=== PATIENT | female | born 1970 | race Two or more races ===

== ENCOUNTER 2024-06-11 22:44 | Emergency (ER) | payer MEDICAID, SELFPAY ==
[2024-06-11 22:45] VITALS: BMI 29.1
[2024-06-11 22:59] VITALS: BP 119/78; PULSE 87; RESP 18; TEMP 36.9; O2SAT 98
--- NOTE | 2024-06-11 23:09 | EDNOTE_ITS ---
ED Wound/Laceration-RME/HPI General Chief Complaint: Recheck/Abnormal Lab/Rx Stated Complaint: LAC WITH SUTURE IS BLEEDING Time Seen by Provider: 06/11/24 23:05 Arrival date/time: 06/11/24 22:44 53F with history of HTN, psych and seizures presents to ED with previous head lac bleeding again. Patient had received curtis during previous visit, but has been picking at it according to caregiver. Limitations: no limitations Related Data Home Medications ?Medication ?Instructions ?Recorded ?Confirmed benztropine 1 mg tablet 1 mg PO BID 08/09/19 05/10/22 docusate sodium 250 mg capsule 250 mg PO BID 08/09/19 05/10/22 sertraline 100 mg tablet 100 mg PO QPM 08/09/19 05/10/22 quetiapine 400 mg tablet 800 mg PO QPM 10/30/19 05/10/22 omeprazole 20 mg capsule,delayed 20 mg PO QDAY 10/18/21 05/10/22 release levetiracetam 500 mg 500 mg PO BID 05/10/22 05/10/22 tablet,extended release 24 hr loratadine 10 mg tablet 10 mg PO QDAY 05/10/22 05/10/22 Previous Rx's ?Medication ?Instructions ?Recorded cephalexin 500 mg capsule 500 mg PO BID 5 days #10 caps 06/11/24 Allergies Allergy/AdvReac Type Severity Reaction Status Date / Time lithium Allergy Severe Hallucinati Verified 06/11/24 22:47 ng Review of Systems Review of Systems Systems Reviewed: All systems reviewed, normal except as documented Constitutional Constitutional: Reports system reviewed and no additional complaints, except as documented, Denies fever(s) and Denies headache(s) ENT Ears, Nose, Mouth, and Throat: Denies disequilibrium and Denies headache(s) Cardiovascular Cardiovascular: Reports system reviewed and no additional complaints, except as documented, Denies chest pain and Denies dyspnea Respiratory Respiratory: Reports system reviewed and no additional complaints, except as documented, Denies cough and Denies dyspnea Gastrointestinal Gastrointestinal: Reports system reviewed and no additional complaints, except as documented, Denies abdominal pain, Denies nausea and Denies vomiting Neurologic Neurologic: Reports system reviewed and no additional complaints, except as documented, Denies confusion, Denies disequilibrium and Denies headache(s) Psychiatric Psychiatric: Denies confusion Past Medical History Past Medical History NEUROLOGIC: Positive Neurological Disorders and Seizures CARDIAC: Positive Cardiac Disorders and Hypertension; Negative Congestive Heart Failure RESPIRATORY: Negative Chronic Obstructive Pulmonary Disease (COPD) GASTROINTESTINAL: Negative Gastrointestinal Disorders GENITOURINARY: Negative Genitourinary Disorders or Renal Disease MUSCULOSKELETAL: Negative Musculoskeletal Disorders ENDOCRINE: Negative Endocrine Disorders, Diabetes Mellitus Type 1 or Diabetes Mellitus Type 2 HEMATOLOGIC: Negative Blood Disorders OTHER HISTORY: Negative Blood Transfusions, Blood Transfusion Reaction or Anesthesia Reactions Social History SMOKING STATUS: Never smoker SUBSTANCE USE: does not use ED Exam General Limitations: Present no limitations General appearance: Present alert and in no apparent distress Expanded Head Exam Head exam physical: Present laceration (front scalp) Eye Eye exam: Present normal appearance, PERRL and EOMI ENT ENT exam: Present normal exam, normal oropharynx and mucous membranes moist Neck Neck exam: Present normal inspection, full ROM and trachea midline Chest Chest inspection: Present normal inspection and symmetric chest wall rise Respiratory Respiratory exam: Present normal lung sounds bilaterally Cardiovascular Cardiovascular exam: Present regular rate, normal rhythm and normal heart sounds Abdominal Exam Abdominal exam: Present soft and normal bowel sounds Extremities Exam Extremities exam: Present normal inspection and full ROM Back Exam Back exam: Present normal inspection and full ROM Neurological Exam Neurological exam: Present alert, oriented X3 and CN II-XII intact Psychiatric Psychiatric exam: Present normal affect and normal mood Skin Skin exam: Present warm, dry, intact and normal color Course Quality Measures none Orders Category Date Time Status Set Up Suture Tray STAT Care 06/11/24 23:33 Active Suture / Staple Removal NOW Care 06/11/24 23:05 Active Wound Care NOW Care 06/11/24 23:05 Active Vital Signs Vital signs: Vital Signs Temperature 98.4 F 06/11/24 22:59 Pulse Rate 87 06/11/24 22:59 Respiratory Rate 18 06/11/24 22:59 Blood Pressure 119/78 06/11/24 22:59 Pulse Oximetry (%) 98 06/11/24 22:59 Oxygen Delivery Method Room Air 06/11/24 22:59 O2 at 98% on RA and WNLs Wound / Laceration MDM Narrative MDM Narrative:: 53F with history of HTN, psych and seizures presents to ED with previous head lac bleeding again. Patient had received curtis during previous visit, but has been picking at it according to caregiver. Physical exam reveals 2 partially removed curtis on frontal scalp lac that is partially healed. One staple still in place. Normal pupil response and EOM. No skin redness, swelling or tenderness. Patient is afebrile, calm, and alert. Wound cleaned and curtis removed. Laceration reinforced with 3 stitches. Given executive assistant to general counsel to have them removed in about 10-14 days. Will given short course of ABX due to duration wound has been opened. Patient data External records reviewed:: [facility] previous records Clinical information provided by:: patient Social determinants that could affect healthcare access:: none Patient has the following chronic illnesses:: HTN, psych and seizures How is presenting disease/condition affected by chronic disease/condition?: exacerbated by Evaluation data The following diagnostics were reviewed and interpreted by me:: other (specify) (none) Lab and/or radiology exams considered but not ordered:: not ordered Interpretation Summary: n/a Medications / Prescriptions Medications or Prescriptions considered but not ordered:: not ordered Medication administrations:: n/a Consultations Consultation(s) initiated? (list below): No Diagnosis Wound Differential Diagnosis: laceration, abrasion, avulsion of skin and other (wound check) Most likely diagnosis given after review of the tests above:: laceration Admission Indicated Admission indicated?: not indicated Admission Request Was there a request for admission?: No Disposition Plan Disposition Plan: Discharge Discharge Attestation Discharge Attestation: The patient and all family members were given an opportunity to ask questions and understood the discharge instructions. Discharge instructions specifically effects, indications for sooner follow up or return to the emergency department, and the expected course of current diagnosis. Patient condition: Stable Discharge Plan Plan Patient Disposition: HOME (Self Care) Disposition Comment: Stable Prescriptions/Referrals Prescriptions/Med Rec: New cephalexin 500 mg capsule 500 mg PO BID 5 Days Qty: 10 0RF No Action quetiapine 400 mg Tablet 800 mg PO QPM sertraline 100 mg tablet 100 mg PO QPM benztropine 1 mg tablet 1 mg PO BID docusate sodium 250 mg Capsule 250 mg PO BID omeprazole 20 mg Capsule,Delayed Release(Dr/Ec) 20 mg PO QDAY loratadine 10 mg tablet 10 mg PO QDAY levetiracetam 500 mg tablet extended release 24 hr 500 mg PO BID Problem List Clinical Impression: Laceration Patient/Caregiver Discharge Instructions Additional Instructions: Please follow-up with PCP within 24-48 hours and return immediately if symptoms worsen. Have stitches removed in about 10-14 days. Print Language: Maltese Stand Alone Forms: Patient Portal Info Letter PA/BURLING AND JOINING SUPERVISOR Supervising Physician PA/BURLING AND JOINING SUPERVISOR Supervising Physician: Dr. Muñiz
== END 2024-06-11 23:52 | disposition home or self-care (01) ==
PROVIDERS: Emergency Provider Emergency Medicine; PCP Registered Nurse
DX: S01.01XD Laceration without foreign body of scalp, subsequent encounter (principal); X58.XXXD Exposure to other specified factors, subsequent encounter; I10 Essential (primary) hypertension
CPT/HCPCS: 12001; 99283

== ENCOUNTER 2024-06-17 16:33 | Emergency (ER) | payer MEDICAID, SELFPAY ==
[2024-06-17 16:44] VITALS: BP 115/74; PULSE 88; RESP 18; TEMP 37; O2SAT 95; BMI 27.1
--- NOTE | 2024-06-17 16:45 | XR_ITS ---
Examination: CT brain head without contrast. 2-D sagittal coronal reconstructions Date and time of exam:June 17, 2024 1940 hrs. Indications: Patient fell today with injury to the head, head pain CTDI: vol (mGy):44.9 DLP: (mGycm):818 Technique: Multiple CT axial sections of the brain have been obtained, 5 mm slice thickness. Contrast has not been administered. 2-D sagittal, coronal reconstructions have been obtained Low dose protocols were performed. One or more of the following dose reduction techniques were used; automated exposure control, adjustment of the mA and/or KV according to patient size, use of iterative reconstruction technique. Findings: No significant ventricular enlargement. Intra-axial or extra-axial hemorrhage density is not seen. No mass effect or midline shift Basal cisterns are not remarkable. Fourth ventricle is midline. Cranial vault intact. Impression: Negative for acute hemorrhage, mass effect or midline shift
--- NOTE | 2024-06-17 16:45 | XR_ITS ---
Examination: CT cervical spine without contrast 2-D sagittal reconstructions 2-D coronal reconstructions 3-D reconstructions. Exam date and time:June 15, 2024 1940 hrs. Indications: Patient fell today with injury to the neck, neck pain CTDI:vol (mGy) 7.53 DLP: (mGycm) 144 Technique: Multiple 2 mm axial sections of the cervical spine have been obtained. The coronal and sagittal reconstructions have been obtained. 3-D reconstructions have been obtained. Low dose protocols were performed. One or more of the following dose reduction techniques were used; automated exposure control, adjustment of the mA and/or KV according to patient size, use of iterative reconstruction technique. Findings: Axial sections demonstrate intact base of the skull. C1 exhibit satisfactory relationship to the odontoid. No acute cervical vertebral body fracture seen. Alignment posterior spinous processes satisfactory. Impression: No acute cervical fracture.
--- NOTE | 2024-06-17 16:45 | EDRME_ITS ---
Rapid Medical Screening Exam RME Arrival date/time: 06/17/24 16:33 53-year-old female developmentally delayed presents emergency department today with senior applications analyst reports the patient had a seizure and fell patient was brought in for further evaluation Chief Complaint: Dental/Oral/Throat Time Seen by Provider: 06/17/24 16:44 Vital signs: Vital Signs Temperature 98.6 F 06/17/24 16:44 Pulse Rate 88 06/17/24 16:44 Respiratory Rate 18 06/17/24 16:44 Blood Pressure 115/74 06/17/24 16:44 Pulse Oximetry (%) 95 06/17/24 16:44 Oxygen Delivery Method Room Air 06/17/24 16:44
[2024-06-17 17:09] LABS: Basophils # (Auto) 0.1 Thou/mm3 (0.0-0.2); Basophils % (Auto) 1 % (0-2.5); Eosinophils % (Auto) 22 % (0-10); Hematocrit 35.1 % (36.0-46.0); Hemoglobin 11.9 g/dL (12.0-16.0); Immature Granulocytes % (Auto) 0 % (0-0); Immature Granulocytes Auto 0.04 Thou/mm3 (0.00-0.00); Lymphocytes % (Auto) 21 % (10-50); Mean Corpuscular HGB Conc 33.9 g/dl (31.0-37.0); Mean Corpuscular Volume 91 fL (80-100); Monocytes # (Auto) 0.8 Thou/mm3 (0.0-0.8); Monocytes % (Auto) 9 % (0-12); Neutrophils # (Auto) 4.4 Thou/mm3 (1.8-7.7); Neutrophils % (Auto) 47 % (37-80); Nucleated Red Blood Cell % 0 /100 WBC (0); Platelet Count 296 Thou/mm3 (140-440); RDW Standard Deviation 42.4 fL (36.4-46.3); Red Blood Count 3.84 Miln/mm3 (4.00-5.20); White Blood Count 9.3 Thou/mm3 (3.6-11.0)
[2024-06-17 17:29] LABS: Alanine Aminotransferase 14 U/L (10-49); Albumin, Serum 4.4 gm/dL (3.5-5.0); Albumin/Globulin Ratio 1.4 (1.2-2.2); Alkaline Phosphatase 157 U/L (46-116); Anion Gap 7 (7-16); Aspartate Amino Transferase 15 U/L (0-34); BUN/Creatinine Ratio 15 Ratio (12-20); Bilirubin,Total 0.4 mg/dL (0.3-1.2); Blood Urea Nitrogen 12 mg/dL (9-23); Calcium 9.2 mg/dL (8.3-10.6); Calcium (Corrected) 9.2 mg/dL (8.5-10.1); Carbon Dioxide 22.9 mMol/L (20.0-31.0); Chloride 109 mMol/L (98-107); Creatinine (Component) 0.8 mg/dL (0.6-1.3); Estimated Creatinine Clearance 66.7 mL/min (>60); Globulin 3.1 gm/dL (2.3-3.5); Glucose 114 mg/dL (74-106); Osmolality,Calculated 278 (275-295); Potassium 3.7 mMol/L (3.4-5.1); Sodium 139 mMol/L (136-145); Total Protein 7.5 gm/dL (5.7-8.2); Troponin I < 0.002 ng/mL (0.0-0.045); eGFR > 60 See Note
--- NOTE | 2024-06-17 21:34 | EDNOTE_ITS ---
ED Dental RME/HPI General Chief complaint: Dental/Oral/Throat Stated complaint: Seizure today and bruise to bottom lip Time Seen by Provider: 06/17/24 16:44 Arrival date/time: 06/17/24 16:33 RME / HPI RME / HPI Narrative: 53-year-old female developmentally delayed presents emergency department today with boarding mother reports the patient had a seizure and fell patient was brought in for further evaluation. Patient sustained contusion to the lower lip. Denies any pain or loosening to the teeth. Patient has been taking her Keppra with good compliance. Incident happened earlier this morning. Patient is ambulatory Related Data Home Medications ?Medication ?Instructions ?Recorded ?Confirmed benztropine 1 mg tablet 1 mg PO BID 08/09/19 05/10/22 docusate sodium 250 mg capsule 250 mg PO BID 08/09/19 05/10/22 sertraline 100 mg tablet 100 mg PO QPM 08/09/19 05/10/22 quetiapine 400 mg tablet 800 mg PO QPM 10/30/19 05/10/22 omeprazole 20 mg capsule,delayed 20 mg PO QDAY 10/18/21 05/10/22 release levetiracetam 500 mg 500 mg PO BID 05/10/22 05/10/22 tablet,extended release 24 hr loratadine 10 mg tablet 10 mg PO QDAY 05/10/22 05/10/22 Allergies Allergy/AdvReac Type Severity Reaction Status Date / Time lithium Allergy Severe Hallucinati Verified 06/11/24 22:47 ng Review of Systems Review of Systems Narrative Review of Systems: Review of system reviewed and within normal limits except mentioned in HPI ED Exam Narrative Physical exam: VITAL SIGNS: Reviewed. GENERAL APPEARANCE: Alert and interactive, follows commands, no acute distress, HEAD AND FACE: Non-traumatic. ENT: PERRL, pink conjunctivitis, eyelid no trauma, Mucous membrane moist. Lower lip contusion NECK: Supple, nontender, no nuchal rigidity. CHEST: No tenderness, no crepitus, no paradoxical movement, no retractions. LUNGS: Clear, well ventilated, symmetric, no rales, no wheezing, no ronchi, no stridor, good breath sounds bilaterally. HEART: Regular rate, regular rhythm, no murmur, no gallops. ABDOMEN: Soft, positive bowel sounds, nondistended, no guarding, nontender, no rebound, no masses, RECTAL: Deferred. GENITAL: Deferred. NEUROLOGICAL: Gross motor function intact sensory function intact, Appropriate for age. MUSCULOSKELETAL: low back nontender, full range of motion. EXTREMITIES: Nontender, full range of motion. SKIN: Color pink, dry, no rash, no lacerations, no abrasions, no contusions. LYMPHATICS: Deferred. Course Quality Measures none Orders Category Date Time Status CT cervical spine wo con Stat Exams 06/17/24 16:[address] head/brain wo con Stat Exams 06/17/24 16:45 Completed CBC Stat Lab 06/17/24 16:50 Completed Comprehensive Metabolic Panel Stat Lab 06/17/24 16:50 Completed Troponin I Stat Lab 06/17/24 16:50 Completed Vital Signs Vital signs: Vital Signs Temperature 98.6 F 06/17/24 16:44 Pulse Rate 88 06/17/24 16:44 Respiratory Rate 18 06/17/24 16:44 Blood Pressure 115/74 06/17/24 16:44 Pulse Oximetry (%) 95 06/17/24 16:44 Oxygen Delivery Method Room Air 06/17/24 16:44 Dental / Oral MDM Narrative MDM Narrative:: CT scan of the head came back unremarkable. CT scan of the neck came back unremarkable. Patient did not have recurrence of seizure in the emergency room. There is no need to do laboratory workup at this time. Patient stable for discharge Patient data External records reviewed:: None Clinical information provided by:: none Social determinants that could affect healthcare access:: none Patient has the following chronic illnesses:: None How is presenting disease/condition affected by chronic disease/condition?: no chronic disease Evaluation data The following diagnostics were reviewed and interpreted by me:: radiology exam(s) Lab and/or radiology exams considered but not ordered:: None Interpretation Summary: CT scan of the neck came back unremarkable. CT scan of the head came back unremarkable. Medications / Prescriptions Medications or Prescriptions considered but not ordered:: None Medication administrations:: None Consultations Consultation(s) initiated? (list below): No Diagnosis Dental Differential Diagnosis: fracture of tooth and other (Lower lip contusion, breakthrough seizure, status post fall) Most likely diagnosis given after review of the tests above:: Lower lip contusion, breakthrough seizure, status post fall Admission Indicated Admission indicated?: not indicated Explain why admission is indicated or not indicated:: Stable Admission Request Was there a request for admission?: No Disposition Plan Disposition Plan: Discharge Discharge Attestation Discharge Attestation: The patient and caregiver were given an opportunity to ask questions and understood the discharge instructions. Discharge instructions specifically effects, indications for sooner follow up or return to the emergency department, and the expected course of current diagnosis. Patient condition: Stable Discharge Plan Plan Patient Disposition: HOME (Self Care) Disposition Comment: Stable Prescriptions/Referrals Prescriptions/Med Rec: No Action quetiapine 400 mg Tablet 800 mg PO QPM sertraline 100 mg tablet 100 mg PO QPM benztropine 1 mg tablet 1 mg PO BID docusate sodium 250 mg Capsule 250 mg PO BID omeprazole 20 mg Capsule,Delayed Release(Dr/Ec) 20 mg PO QDAY loratadine 10 mg tablet 10 mg PO QDAY levetiracetam 500 mg tablet extended release 24 hr 500 mg PO BID Referrals: Cherelle Butts, [employer]IC [Primary Care Provider] - In 1 week Problem List Clinical Impression: Contusion of vermilion border of lower lip, Fall, Breakthrough seizure Patient/Caregiver Discharge Instructions Discharge Activity: activity as tolerated Education Materials: ED Seizure, Recurrent (Adult) Additional Instructions: Thank you for the opportunity for serving you today. You are stable for discharged . You are advised to: Follow-up with your PCP in 1 to 2 days Return to ED for worsening of symptoms Increase oral fluids Take medication as prescribed for your seizure Print Language: South African Stand Alone Forms: Nena Award Info., Patient Portal Info Letter RASHMI/SAMANTHA Supervising Physician YON Supervising Physician: MD Shaista
[2024-06-17 21:42] VITALS: BP 111/63; PULSE 87; RESP 18; TEMP 36.6; O2SAT 97
== END 2024-06-17 21:45 | disposition home or self-care (01) ==
PROVIDERS: Nurse Practitioner Primary Care; Emergency Provider Emergency Medicine; PCP Registered Nurse
DX: S00.531A Contusion of lip, initial encounter (principal); S19.9XXA Unspecified injury of neck, initial encounter; W19.XXXA Unspecified fall, initial encounter; G40.909 Epilepsy, unspecified, not intractable, without status epilepticus
CPT/HCPCS: 36415; 70450; 72125; 80053; 84484; 85025; 99284

== ENCOUNTER 2024-11-30 07:28 | Emergency (ER) | payer MEDICAID, SELFPAY ==
[2024-11-30 07:28] VITALS: BMI 29.8
[2024-11-30 07:36] VITALS: BP 130/85; PULSE 116; RESP 18; TEMP 36.9; O2SAT 97
--- NOTE | 2024-11-30 08:03 | PD.EDSEIZ ---
ED Seizures RME/HPI General Chief Complaint: Wound/Laceration Stated Complaint: LACERATION Time Seen by Provider: 11/30/24 07:34 Arrival date/time: 11/30/24 07:28 RME / HPI RME / HPI Narrative: DR. CHEUNG MAIN ED EVALUATION: 54 year old female Related Data Home Medications ?Medication ?Instructions ?Recorded ?Confirmed benztropine 1 mg tablet 1 mg PO BID 08/09/19 05/10/22 docusate sodium 250 mg capsule 250 mg PO BID 08/09/19 05/10/22 sertraline 100 mg tablet 100 mg PO QPM 08/09/19 05/10/22 quetiapine 400 mg tablet 800 mg PO QPM 10/30/19 05/10/22 omeprazole 20 mg capsule,delayed 20 mg PO QDAY 10/18/21 05/10/22 release levetiracetam 500 mg 500 mg PO BID 05/10/22 05/10/22 tablet,extended release 24 hr loratadine 10 mg tablet 10 mg PO QDAY 05/10/22 05/10/22 Allergies Allergy/AdvReac Type Severity Reaction Status Date / Time lithium Allergy Severe Hallucinati Verified 11/30/24 07:30 ng Course Orders Category Date Time Status CT head/brain wo con Stat Exams 11/30/24 08:08 Ordered CBC [CBC] Stat Lab 11/30/24 08:09 Ordered CMP [Comprehensive Metabolic Panel] Stat Lab 11/30/24 08:09 Ordered levETIRAcetam INJ [Keppra Inj] Med 11/30/24 08:08 Discontinued 500 mg IVP X1 ONE Vital Signs Vital signs: Vital Signs Temperature 98.4 F 11/30/24 07:36 Pulse Rate 116 H 11/30/24 07:36 Respiratory Rate 18 11/30/24 07:36 Blood Pressure 130/85 H 11/30/24 07:36 Pulse Oximetry (%) 97 11/30/24 07:36 Oxygen Delivery Method Room Air 11/30/24 07:36 Seizure Medications / Prescriptions Medication administrations:: Medication Administration History Discontinued Medications Levetiracetam (Levetiracetam Inj 100 Mg/Ml Vial 5ml) 500 mg IVP X1 ONE Stop: 11/30/24 08:09 Discharge Plan Prescriptions/Referrals Prescriptions/Med Rec: No Action quetiapine 400 mg Tablet 800 mg PO QPM sertraline 100 mg tablet 100 mg PO QPM benztropine 1 mg tablet 1 mg PO BID docusate sodium 250 mg Capsule 250 mg PO BID omeprazole 20 mg Capsule,Delayed Release(Dr/Ec) 20 mg PO QDAY loratadine 10 mg tablet 10 mg PO QDAY levetiracetam 500 mg tablet extended release 24 hr 500 mg PO BID Patient/Caregiver Discharge Instructions Print Language: Romansh
--- NOTE | 2024-11-30 08:08 | XR_ITS ---
Examination: CT brain head without contrast. 2-D sagittal coronal reconstructions Date and time of exam:November 30, 2024 0816 hours Comparison June 17, 2024 INDICATIONS: Patient fell today with injury to the head, head pain CTDI: vol (mGy):49.9 DLP: (mGycm):914 Technique: Multiple CT axial sections of the brain have been obtained, 5 mm slice thickness. Contrast has not been administered. 2-D sagittal, coronal reconstructions have been obtained Low dose protocols were performed. One or more of the following dose reduction techniques were used; automated exposure control, adjustment of the mA and/or KV according to patient size, use of iterative reconstruction technique. Findings: No significant ventricular enlargement. Soft tissue swelling left forehead scalp Intra-axial or extra-axial hemorrhage density is not seen. No mass effect or midline shift Basal cisterns are not remarkable. Fourth ventricle is midline. Cranial vault intact. Impression: Negative for acute hemorrhage, mass effect or midline shift
--- NOTE | 2024-11-30 08:10 | PC.NURSE ---
in to assess pt. pt resting quietly at this time with c/o pain to forehead. per caregiver pt had an unwitnessed seizure at about 6AM this morning when using the restroom. lac/swelling noted to forehead. pt with known hx of seizures. orders received and initiated, call light is within reach. rn critical care at bedside. plan of care ongoing.
--- NOTE | 2024-11-30 08:13 | EDNOTE_ITS ---
ED Wound/Laceration-RME/HPI General Chief Complaint: Wound/Laceration Stated Complaint: LACERATION Time Seen by Provider: 11/30/24 07:34 Arrival date/time: 11/30/24 07:28 Limitations: no limitations RME / HPI RME / HPI narrative: DR. WELCH MAIN ED EVALUATION: 54 year old female with past medical history significant for developmentally delayed and seizures presents to the Emergency Department brought in by the caregiver with complaint of left forehead laceration after she had a seizure at home. Per caregiver, patient gets a seizure about every month and she has hit the same spot in the past; last seizure was October 01, 2024. No other symptoms reported at this time. Related Data Home Medications ?Medication ?Instructions ?Recorded ?Confirmed benztropine 1 mg tablet 1 mg PO BID 08/09/19 2 docusate sodium 250 mg capsule 250 mg PO BID 08/09/19 05/10/22 sertraline 100 mg tablet 100 mg PO QPM 08/09/1905/10 quetiapine 400 mg tablet 800 mg PO QPM 10/30/1905/10 omeprazole 20 mg capsule,delayed 20 mg PO QDAY 2 05/10/22 release levetiracetam 500 mg 500 mg PO BID 05/10/2205/10 tablet,extended release 24 hr loratadine 10 mg tablet 10 mg PO QDAY 05/10/2205/10 Previous Rx's ?Medication ?Instructions ?Recorded levetiracetam 750 mg tablet 750 mg PO BID #60 tabs 01/19 ([facility]) Allergies Allergy/AdvReac Type Severity Reaction Status Date / Time lithium Allergy Severe Hallucinati Verified 11/30/24 07:30 ng Review of Systems Review of Systems Systems Reviewed: All systems reviewed, normal except as documented Narrative Review of Systems: GEN: No fever, no chills, no weight loss EYES: No discharge, no visual changes, no pain HEENT: No ear pain, no congestion, no sore throat PULM: No shortness of breath, no cough, no congestion CV: No chest pain, no dyspnea on exertion, no palpitations GI: No nausea, no vomiting, no diarrhea, no pain, no constipation : No frequency, no urgency and no dysuria MUSC/SKEL: No joint pain, no back pain SKIN: No rash, + left forehead laceration after she had a seizure at home PSYCH: No hallucinations, no depression HEME/LYMPH: No easy bleeding or bruising tendencies NEURO: No weakness, no headache Past Medical History Past Medical History NEUROLOGIC: Positive Neurological Disorders and Seizures CARDIAC: Positive Cardiac Disorders and Hypertension Social History SMOKING STATUS: Never smoker SUBSTANCE USE: does not use ALCOHOL: Never ED Exam General Limitations: Present no limitations General appearance: Present alert and in no apparent distress Expanded Head Exam Head image: 2 1. 1.5 cm left frontal laceration. Eye Eye exam: Present normal appearance, PERRL and EOMI ENT ENT exam: Present normal exam, normal oropharynx and mucous membranes moist Neck Neck exam: Present normal inspection, full ROM and trachea midline Chest Chest inspection: Present normal inspection and symmetric chest wall rise Respiratory Respiratory exam: Present normal lung sounds bilaterally Cardiovascular Cardiovascular exam: Present regular rate, normal rhythm and normal heart sounds Abdominal Exam Abdominal exam: Present soft and normal bowel sounds Extremities Exam Extremities exam: Present normal inspection and full ROM Back Exam Back exam: Present normal inspection and full ROM Neurological Exam Neurological exam: Present alert, oriented X3 and CN II-XII intact Psychiatric Psychiatric exam: Present normal affect and normal mood Skin Skin exam: Present warm, dry, intact and normal color Course Quality Measures none Orders Category Date Time Status Discharge Routine Discharge 11/30/24 10:[address] head/brain wo con Stat Exams 11/30/24 08:08 Completed CBC [CBC] Stat Lab 11/30/24 08:40 Completed CMP [Comprehensive Metabolic Panel] Stat Lab 11/30/24 08:40 Completed levETIRAcetam INJ [Keppra Inj] Med 11/30/24 08:08 Discontinued 500 mg IVP X1 ONE Reevaluation(s) Reevaluation #1: Patient stable. Plan is to give Keppra and discharge. Time: 10:20 Vital Signs Vital signs: Vital Signs Temperature 98.4 F 11/30/24 07:36 Pulse Rate 116 H 11/30/24 07:36 Respiratory Rate 18 11/30/24 07:36 Blood Pressure 130/85 H 11/30/24 07:36 Pulse Oximetry (%) 97 11/30/24 07:36 Oxygen Delivery Method Room Air 11/30/24 07:36 Procedures -ED Laceration Laceration 1: Site: face (1.5 cm left frontal (left upper forehead area) laceration) Side (If applicable): left Size (cm): 1.5 Description: linear Depth: simple, single layer Pre-repair: wound explored Skin layer closed with: other (Dermabond and Steri-Strips applied; patient tolerated well the procedure no complications.) Wound / Laceration MDM Narrative MDM Narrative:: I, Beverly Ramsey am scribing for and in the presence of Dr. Welch. Patient had trauma secondary to seizure Close loss of consciousness so the CT of the head CT of the head came back negative Labs came back unremarkable The laceration was repaired with Dermabond Length of laceration was 1.5 centimeter superficial laceration No other traumas was noted The dose of Keppra she had was 5 mg twice a day She did have another small seizure while she is in the ER The morning dose of Keppra was given to her already 5 mg IV Noted increase the dose of Keppra to 750 mg twice a day She was given prescription for that Patient had no other events and she was discharged good condition She was back into her baseline Patient data External records reviewed:: [facility] previous records (Reviewed last ED visit dated 06/17/24, discharged with the following: Breakthrough seizure) Clinical information provided by:: patient and net developer with [facility] Social determinants that could affect healthcare access:: none Patient has the following chronic illnesses:: developmentally delayed and seizures How is presenting disease/condition affected by chronic disease/condition?: c aused by Evaluation data The following diagnostics were reviewed and interpreted by me:: lab results and radiology exam(s) Lab and/or radiology exams considered but not ordered:: none Interpretation Summary: Procedure(s): CT head/brain wo con Accession Number(s): [id number] cc: Randy Welch MD; Caden Lopez MD; NO PRIMARY/FAMILY,PHYSICIAN~ Examination: CT brain head without contrast. 2-D sagittal coronal reconstructions Date and time of exam:November 30, 2024 0816 hours Comparison June 17, 2024 INDICATIONS: Patient fell today with injury to the head, head pain CTDI: vol (mGy):49.9 DLP: (mGycm):914 Technique: Multiple CT axial sections of the brain have been obtained, 5 mm slice thickness. Contrast has not been administered. 2-D sagittal, coronal reconstructions have been obtained Low dose protocols were performed. One or more of the following dose reduction techniques were used; automated exposure control, adjustment of the mA and/or KV according to patient size, use of iterative reconstruction technique. Findings: No significant ventricular enlargement. Soft tissue swelling left forehead scalp Intra-axial or extra-axial hemorrhage density is not seen. No mass effect or midline shift Basal cisterns are not remarkable. Fourth ventricle is midline. Cranial vault intact. Impression: Negative for acute hemorrhage, mass effect or midline shift Dictated By: Caden Lopez MD Medications / Prescriptions Medications or Prescriptions considered but not ordered:: none Medication administrations:: Medication Administration History Discontinued Medications Levetiracetam (Levetiracetam Inj 100 Mg/Ml Vial 5ml) 500 mg IVP X1 ONE Stop: 11/30/24 08:09 Last Admin: 11/30/24 08:34 Dose: 500 mg Documented By: VG see above Consultations Consultation(s) initiated? (list below): No Diagnosis Wound Differential Diagnosis: laceration and other (uncontrolled seizure, head injury) Most likely diagnosis given after review of the tests above:: Laceration Head injury Uncontrolled seizures Admission Indicated Admission indicated?: not indicated Admission Request Was there a request for admission?: No Disposition Plan Disposition Plan: Discharge Discharge Attestation Discharge Attestation: The patient and all family members were given an opportunity to ask questions and understood the discharge instructions. Discharge instructions specifically effects, indications for sooner follow up or return to the emergency department, and the expected course of current diagnosis. Patient condition: Stable Discharge Plan Plan Patient Disposition: HOME (Self Care) Patient condition on transfer: Stable Prescriptions/Referrals Prescriptions/Med Rec: New levetiracetam [Keppra] 750 mg tablet 750 mg PO BID Qty: 60 0RF Rx Instructions: Stop the 500 mg dose and start the start the 750 g dose today No Action quetiapine 400 mg Tablet 800 mg PO QPM sertraline 100 mg tablet 100 mg PO QPM benztropine 1 mg tablet 1 mg PO BID docusate sodium 250 mg Capsule 250 mg PO BID omeprazole 20 mg Capsule,Delayed Release(Dr/Ec) 20 mg PO QDAY loratadine 10 mg tablet 10 mg PO QDAY levetiracetam 500 mg tablet extended release 24 hr 500 mg PO BID Referrals: No Primary/Family,Physician [Primary Care Provider] - In 1 week Problem List Clinical Impression: Laceration, Head injury, Uncontrolled seizures Patient/Caregiver Discharge Instructions Discharge Activity: activity as tolerated Education Materials: First Aid: Head Injuries, ED Seizure, Recurrent (Adult) Print Language: Frisian Stand Alone Forms: Nena Award Info., Patient Portal Info Letter
--- NOTE | 2024-11-30 08:15 | PC.NURSE ---
wound care done by provider.
--- NOTE | 2024-11-30 08:30 | PC.NURSE ---
pt had tonic seizure lasting about 10 sec. provider notified.
[2024-11-30] MEDS: levETIRAcetam INJ 100 MG/ML VIAL 5ML 500 MG IVP (08:34)
[2024-11-30 09:21] LABS: Basophils # (Auto) 0.1 Thou/mm3 (0.0-0.2); Basophils % (Auto) 1 % (0-2.5); Eosinophils # (Auto) 0.4 Thou/mm3 (0.0-0.5); Eosinophils % (Auto) 4 % (0-10); Hematocrit 37.1 % (36.0-46.0); Hemoglobin 12.7 g/dL (12.0-16.0); Immature Granulocytes % (Auto) 1 % (0-0); Immature Granulocytes Auto 0.07 Thou/mm3 (0.00-0.00); Lymphocytes # (Auto) 0.6 Thou/mm3 (1.0-4.8); Lymphocytes % (Auto) 6 % (10-50); Mean Corpuscular HGB Conc 34.2 g/dl (31.0-37.0); Mean Corpuscular Hemoglobin 30.2 pg (25.0-35.0); Mean Corpuscular Volume 88 fL (80-100); Monocytes # (Auto) 0.7 Thou/mm3 (0.0-0.8); Monocytes % (Auto) 7 % (0-12); Neutrophils # (Auto) 8.3 Thou/mm3 (1.8-7.7); Neutrophils % (Auto) 82 % (37-80); Nucleated Red Blood Cell % 0 /100 WBC (0); Platelet Count 257 Thou/mm3 (140-440); RDW Standard Deviation 42.1 fL (36.4-46.3); Red Blood Count 4.21 Miln/mm3 (4.00-5.20); White Blood Count 10.1 Thou/mm3 (3.6-11.0)
[2024-11-30 10:05] LABS: Alanine Aminotransferase 11 U/L (10-49); Albumin, Serum 4.8 gm/dL (3.5-5.0); Albumin/Globulin Ratio 1.5 (1.2-2.2); Alkaline Phosphatase 176 U/L (46-116); Anion Gap 10 (7-16); Aspartate Amino Transferase 15 U/L (0-34); BUN/Creatinine Ratio 19 Ratio (12-20); Bilirubin,Total 0.3 mg/dL (0.3-1.2); Blood Urea Nitrogen 15 mg/dL (9-23); Carbon Dioxide 22.8 mMol/L (20.0-31.0); Chloride 109 mMol/L (98-107); Creatinine (Component) 0.8 mg/dL (0.6-1.3); Estimated Creatinine Clearance 60.5 mL/min (>60); Globulin 3.3 gm/dL (2.3-3.5); Glucose 118 mg/dL (74-106); Osmolality,Calculated 284 (275-295); Potassium 3.9 mMol/L (3.4-5.1); Sodium 142 mMol/L (136-145); Total Protein 8.1 gm/dL (5.7-8.2); eGFR > 60 See Note
== END 2024-11-30 10:40 | disposition home or self-care (01) ==
PROVIDERS: Emergency Provider Emergency Medicine
DX: S01.81XA Laceration without foreign body of other part of head, initial encounter (principal); X58.XXXA Exposure to other specified factors, initial encounter; R56.9 Unspecified convulsions
CPT/HCPCS: 12011; 36415; 70450; 80053; 85025; 96374; 99284; J1953

== ENCOUNTER 2025-02-28 00:05 | Emergency (ER) | payer MEDICAID, SELFPAY ==
[2025-02-28 00:07] VITALS: BP 137/81; PULSE 90; RESP 16; TEMP 36.6; O2SAT 97
--- NOTE | 2025-02-28 00:16 | PD.EDSEIZ ---
ED Seizures RME/HPI General Chief Complaint: Seizure Stated Complaint: SEIZURE Time Seen by Provider: 02/28/25 00:12 Arrival date/time: 02/28/25 00:05 RME / HPI RME / HPI Narrative: This section includes all my notes and documentations, including HPI, PE, and ED course. Didier Hebert MD HPI: 54yo female with a history of epilepsy BIBA from longterm here for a seizure. Per EMS, patient had a seizure that lasted for 5 minutes [employer]OCIATE [employer]. Takes Keppra 500 mg twice daily. No other complaints reported. ROS: Unobtainable from the patient due to current clinical condition. Physical Exam: General: Alert. No acute distress when remaining still. Eyes: Conjunctivae and lids clear. PERRL. EOMI. ENT: No nasal congestion. Neck: Supple. Heart: RRR. Lungs: No respiratory distress. Good air movement. No rhonchi, wheezing, rales. Abdomen: Soft and nontender. Skin: Warm and dry. Neuro: Alert. Cranial nerves II to XII grossly normal. No peripheral motor deficits. I reviewed EMS notes. I reviewed all diagnostic test results. My interpretation of the EKG is sinus rhythm with nonspecific ST-T changes. Blood tests remarkable for Potassium 3.0. UA unremarkable. At this point, diagnoses include recurrent seizures and hypokalemia. Treatment here included NS, Keppra, Zofran, Potassium. Patient remained stable. Based on my best medical judgment, made decision no further evaluation or treatment indicated at this time. halfway staff understands and agrees to the discharge instructions customized and printed, see below. Discharge Instructions from Dr. Hebert printed for you: 1. To help prevent more seizures, increase Keppra to 1000 mg twice daily, as prescribed. 2. To prevent low potassium level again, eat a banana and other potassium rich food daily. 3. See patient's neurologist on 03/01/2025 for further care. Minimum, call the office and let them know what happened and ask for further instructions. 4. Seek immediate medical care with another seizure or with any concerns. Didier Hebert MD Related Data Home Medications ?Medication ?Instructions ?Recorded ?Confirmed benztropine 1 mg tablet 1 mg PO BID 08/09/19 05/10/22 docusate sodium 250 mg capsule 250 mg PO BID 08/09/19 05/10/22 sertraline 100 mg tablet 100 mg PO QPM 08/09/19 05/10/22 quetiapine 400 mg tablet 800 mg PO QPM 10/30/19 05/10/22 omeprazole 20 mg capsule,delayed 20 mg PO QDAY 10/18/21 05/10/22 release levetiracetam 500 mg 500 mg PO BID 05/10/22 05/10/22 tablet,extended release 24 hr loratadine 10 mg tablet 10 mg PO QDAY 05/10/22 05/10/22 Previous Rx's ?Medication ?Instructions ?Recorded levetiracetam 750 mg tablet 750 mg PO BID #60 tabs 11/30/24 (Keppra) levetiracetam 1,000 mg tablet 1,000 mg PO BID #60 tabs 02/28/25 (Keppra) Allergies Allergy/AdvReac Type Severity Reaction Status Date / Time lithium Allergy Severe Hallucinati Verified 11/30/24 07:30 ng Review of Systems Review of Systems ROS Unobtainable: unobtainable due to mental status Past Medical History Past Medical History NEUROLOGIC: Positive Neurological Disorders, Seizures and Epilepsy CARDIAC: Positive Cardiac Disorders and Hypertension; Negative Congestive Heart Failure RESPIRATORY: Negative Chronic Obstructive Pulmonary Disease (COPD) GASTROINTESTINAL: Negative Gastrointestinal Disorders GENITOURINARY: Negative Genitourinary Disorders or Renal Disease MUSCULOSKELETAL: Negative Musculoskeletal Disorders ENDOCRINE: Negative Endocrine Disorders, Diabetes Mellitus Type 1 or Diabetes Mellitus Type 2 HEMATOLOGIC: Negative Blood Disorders PSYCHO/SOCIAL: Positive Schizophrenia OTHER HISTORY: Negative Blood Transfusions, Blood Transfusion Reaction or Anesthesia Reactions Social History SMOKING STATUS: Never smoker SUBSTANCE USE: does not use ED Exam Narrative Physical exam: As noted in HPI. Course Quality Measures none Orders Category Date Time Status Bedside COVID-19 Antigen Test NOW Care 02/28/25 00:12 Completed Bedside Influenza A&B Antigen Test NOW Care 02/28/25 00:13 Completed EKG (ED ONLY) *Do not use* NOW Care 02/28/25 00:29 Completed Saline [Insert IV] NOW Care 02/28/25 00:13 Completed Straight [In and Out Catheter] X1 Care 02/28/25 00:13 Completed EKG (ED Only) Stat Exams 02/28/25 00:29 Draft BMP [Basic Metabolic Panel] Stat Lab 02/28/25 00:36 Completed CBC Stat Lab 02/28/25 00:36 Completed Free T4 (Free Thyroxine) Stat Lab 02/28/25 00:36 Completed Magnesium Stat Lab 02/28/25 00:36 Completed TSH [Thyroid Stimulating Hormone] Stat Lab 02/28/25 00:36 Completed Troponin I Stat Lab 02/28/25 00:36 Completed UA, C/S IF [Urinalysis, C/S if Indicated] Stat Lab 02/28/25 00:35 Completed KCL 10% Liq UDC 15 ML Med 02/28/25 02:13 Discontinued 40 meq PO X1 ONE Ondansetron Inj [Zofran Inj] Med 02/28/25 00:13 Discontinued 4 mg IVP X1 ONE Sodium Chloride 0.9% 1000 ml [Ns] 1,000 ml Med 02/28/25 00:13 Discontinued IV 999 mls/hr levETIRAcetam INJ [Keppra Inj] Med 02/28/25 00:13 Discontinued 1,000 mg IVP X1 ONE Vital Signs Vital signs: Vital Signs Temperature 97.9 F 02/28/25 00:07 Pulse Rate 90 02/28/25 00:07 Respiratory Rate 16 02/28/25 00:07 Blood Pressure 137/81 H 02/28/25 00:07 Pulse Oximetry (%) 97 02/28/25 00:07 Oxygen Delivery Method Nasal Cannula 02/28/25 00:07 Seizure MDM Narrative MDM Narrative:: 54yo female with a history of epilepsy BIBA from longterm here for a seizure. Per EMS, patient had a seizure that lasted for 5 minutes [employer]OCIATE [employer]. No other complaints reported. Patient data External records reviewed:: [facility] previous records (Per chart review, patient was seen here on 11/30/24 for head injury.) and EMS form Clinical information provided by:: EMS Social determinants that could affect healthcare access:: none Patient has the following chronic illnesses:: epilepsy, HTN How is presenting disease/condition affected by chronic disease/condition?: caused by Evaluation data The following diagnostics were reviewed and interpreted by me:: lab results and EKG tracing(s) (My interpretation of the EKG is: Sinus rhythm (64 bpm) with nonspecific ST-T changes. Didier Hebert MD) Lab and/or radiology exams considered but not ordered:: none Interpretation Summary: I reviewed all diagnostic test results. My interpretation of the EKG is sinus rhythm with nonspecific ST-T changes. Blood tests remarkable for Potassium 3.0. UA unremarkable. Medications / Prescriptions Medications or Prescriptions considered but not ordered:: none Medication administrations:: Medication Administration History Discontinued Medications Sodium Chloride (Ns) 1,000 mls @ 999 mls/hr IV .Q1H1M ONE Stop: 02/28/25 01:13 Last Infusion: 02/28/25 01:40 Dose: Infused Documented By: Admin: 02/28/25 00:39 Dose: 999 mls/hr Documented By: PAIGE Levetiracetam (Levetiracetam Inj 100 Mg/Ml Vial 5ml) 1,000 mg IVP X1 ONE Stop: 02/28/25 00:14 Last Admin: 02/28/25 00:42 Dose: 1,000 mg Documented By: PAIGE Ondansetron HCl (Ondansetron Inj 2 Mg/Ml Inj 2 Ml) 4 mg IVP X1 ONE; Protocol Stop: 02/28/25 00:14 Last Admin: 02/28/25 00:40 Dose: 4 mg Documented By: PAIGE Potassium Chloride (Potassium Chloride 10% 20 Meq/15 Ml Udc) 40 meq PO X1 ONE Stop: 02/28/25 02:14 Last Admin: 02/28/25 02:34 Dose: 40 meq Documented By: Taryn MCDONALD Zofran, Potassium Consultations Consultation(s) initiated? (list below): No Diagnosis Seizure Differential Diagnosis: intractable seizure disorder, focal seizure, generalized seizure, epileptic seizure and status epilepticus Most likely diagnosis given after review of the tests above:: Recurrent seizures, Hypokalemia Admission Indicated Admission indicated?: not indicated Explain why admission is indicated or not indicated:: With significant improvement and no condition needing emergent intervention, there was no indication for admission. Admission Request Was there a request for admission?: No Disposition Plan Disposition Plan: Discharge Discharge Attestation Discharge Attestation: The patient and all family members were given an opportunity to ask questions and understood the discharge instructions. Discharge instructions specifically effects, indications for sooner follow up or return to the emergency department, and the expected course of current diagnosis. Patient condition: Stable Discharge Plan Plan Patient Disposition: HOME (Self Care) Prescriptions/Referrals Prescriptions/Med Rec: New levetiracetam [Keppra] 1,000 mg tablet 1,000 mg PO BID Qty: 60 0RF No Action quetiapine 400 mg Tablet 800 mg PO QPM sertraline 100 mg tablet 100 mg PO QPM benztropine 1 mg tablet 1 mg PO BID docusate sodium 250 mg Capsule 250 mg PO BID omeprazole 20 mg Capsule,Delayed Release(Dr/Ec) 20 mg PO QDAY loratadine 10 mg tablet 10 mg PO QDAY levetiracetam 500 mg tablet extended release 24 hr 500 mg PO BID levetiracetam [Keppra] 750 mg tablet 750 mg PO BID Qty: 60 0RF Rx Instructions: Stop the 500 mg dose and start the start the 750 g dose today Referrals: Cherelle Butts, UTILITY MANAGER [Primary Care Provider] - In 1 week Problem List Clinical Impression: Recurrent seizures, Hypokalemia Patient/Caregiver Discharge Instructions Discharge Activity: activity as tolerated Education Materials: ED Hypokalemia, ED Seizure, Recurrent (Adult) Additional Instructions: Discharge Instructions from Dr. Hebert printed for you: 1. To help prevent more seizures, increase Keppra to 1000 mg twice daily, as prescribed. 2. To prevent low potassium level again, eat a banana and other potassium rich food daily. 3. See patient's neurologist on 03/01/2025 for further care. Minimum, call the office and let them know what happened and ask for further instructions. 4. Seek immediate medical care with another seizure or with any concerns. Print Language: Peruvian Stand Alone Forms: Nena Award Info., Patient Portal Info Letter
--- NOTE | 2025-02-28 00:29 | EKG_ITS ---
[facility] Test Date: 2025-02-28 Pat Name: JOY LOPEZ Department: Room: - Gender: Female Managing Member: : 1970 Requested By: Didier Trevizo Order Number: [id number] Reading MD: Didier Trevizo Measurements Intervals [place] Rate: 64 P: 42 DE: 135 QRS: 56 QRSD: 85 T: 9 QT: 386 QTc: 400 Interpretive Statements SINUS RHYTHM POSSIBLE RIGHT VENTRICULAR CONDUCTION DELAY [RSR (QR) IN V1/V2] NONSPECIFIC T-WAVE ABNORMALITY Compared to ECG 05/29/2024 04:09:33 Sinus tachycardia no longer present T-wave abnormality still present /store/S0/[id number]/[id number].pdf
[2025-02-28 00:30] VITALS: PULSE 82; RESP 18; O2SAT 99
[2025-02-28] MEDS: SODIUM CHLORIDE 0.9% 1000 ML 1,000 ML 999 ML IV (00:39)
[2025-02-28] MEDS: ONDANSETRON INJ 2 MG/ML INJ 2 ML 4 MG IVP (00:40)
[2025-02-28] MEDS: levETIRAcetam INJ 100 MG/ML VIAL 5ML 1000 MG IVP (00:42)
[2025-02-28 00:50] VITALS: BMI 31.4
[2025-02-28 00:51] LABS: Collection Type, Urine Clean Catch
[2025-02-28 00:55] LABS: Basophils # (Auto) 0.1 Thou/mm3 (0.0-0.2); Basophils % (Auto) 1 % (0-2.5); Eosinophils # (Auto) 0.3 Thou/mm3 (0.0-0.5); Eosinophils % (Auto) 2 % (0-10); Hematocrit 37.1 % (36.0-46.0); Hemoglobin 12.9 g/dL (12.0-16.0); Immature Granulocytes Auto 0.04 Thou/mm3 (0.00-0.00); Lymphocytes # (Auto) 1.1 Thou/mm3 (1.0-4.8); Lymphocytes % (Auto) 9 % (10-50); Mean Corpuscular HGB Conc 34.8 g/dl (31.0-37.0); Mean Corpuscular Hemoglobin 30.6 pg (25.0-35.0); Mean Corpuscular Volume 88 fL (80-100); Monocytes # (Auto) 0.9 Thou/mm3 (0.0-0.8); Monocytes % (Auto) 7 % (0-12); Neutrophils # (Auto) 9.9 Thou/mm3 (1.8-7.7); Neutrophils % (Auto) 81 % (37-80); Nucleated Red Blood Cell # 0.00 Thou/mm3 (0.00-0.00); Nucleated Red Blood Cell % 0 /100 WBC (0); Platelet Count 251 Thou/mm3 (140-440); RDW Standard Deviation 40.6 fL (36.4-46.3); Red Blood Count 4.22 Miln/mm3 (4.00-5.20); White Blood Count 12.2 Thou/mm3 (3.6-11.0)
[2025-02-28 01:02] LABS: Bilirubin,Urine Negative (Negative); Blood,Urine 3+ (Negative); Clarity,Urine Clear (Clear/Hazy); Color,Urine Lt-Yellow (Lt Yel-Yel); Culture Indicated,Urine Not Indicated; Glucose, Urine Negative (Negative); Ketones,Urine Negative (Negative); Leukocyte Esterase,Urine Negative (Negative); Nitrite,Urine Negative (Negative); PH,Urine 6.0 (5.0-7.0); Protein,Urine Trace (Neg - Trace); RBC,Urine 18 /hpf (0-3); Specific Gravity,Urine 1.011 (1.001-1.035); Squamous Epithelial Cell,Urine 2 /hpf (0-5); Urobilinogen,Urine Negative mg/dL (0.0-1.0); WBC,Urine 3 /hpf (0-5)
[2025-02-28 01:17] LABS: Anion Gap 10 (7-16); BUN/Creatinine Ratio 13 Ratio (12-20); Blood Urea Nitrogen 9 mg/dL (9-23); Calcium 9.3 mg/dL (8.3-10.6); Carbon Dioxide 21.6 mMol/L (20.0-31.0); Chloride 103 mMol/L (98-107); Creatinine (Component) 0.7 mg/dL (0.6-1.3); Free T4 (Free Thyroxine) 1.11 ng/dL (0.89-1.76); Glucose 127 mg/dL (74-106); Magnesium 1.9 mg/dL (1.6-2.6); Osmolality,Calculated 270 (275-295); Potassium 3.0 mMol/L (3.4-5.1); Sodium 135 mMol/L (136-145); Thyroid Stimulating Hormone 1.62 uIU/mL (0.55-4.78); Troponin I < 0.020 ng/mL (0.0-0.045); eGFR > 60 See Note
[2025-02-28 02:04] VITALS: BP 115/69; PULSE 72; RESP 20; O2SAT 98
[2025-02-28] MEDS: POTASSIUM CHLORIDE 10% 20 MEQ/15 ML UDC 40 MEQ PO (02:34)
[2025-02-28 02:45] VITALS: BP 133/76; PULSE 93; RESP 18; TEMP 36.8; O2SAT 98
== END 2025-02-28 02:45 | disposition home or self-care (01) ==
PROVIDERS: Emergency Provider Emergency Medicine; PCP Registered Nurse
DX: G40.909 Epilepsy, unspecified, not intractable, without status epilepticus (principal); E87.6 Hypokalemia; R94.31 Abnormal electrocardiogram [ECG] [EKG]; I10 Essential (primary) hypertension
CPT/HCPCS: 51701; 36415; 80048; 81001; 83735; 84439; 84443; 84484; 85025; 87400; 87811; 93005; 96361; 96374; 96375; 99283; J1953; J2405; J7030; A9270

== ENCOUNTER 2025-03-02 11:01 | Emergency (ER) | payer MEDICAID, SELFPAY ==
[2025-03-02] VITALS (7 sets, daily range): BP systolic 116–144; BP diastolic 74–88; PULSE 80–130; RESP 13–19; TEMP 37.2–37.8; O2SAT 96–99; BMI 31.3
--- NOTE | 2025-03-02 11:06 | PD.EDSEIZ ---
ED Seizures RME/HPI General Chief Complaint: Seizure Stated Complaint: SEIZURE ACTIVITY MORE THAN NORMAL Time Seen by Provider: 03/02/25 11:03 Arrival date/time: 03/02/25 11:01 RME / HPI RME / HPI Narrative: 54 year old female with history of developmental delay, seizures, hypertension presents to the ED brought in by caregiver for evaluation of recurrent seizures. Reportedly was evaluated here 3 days ago for seizures and Keppra was increased from 750mg BID to 1,000mg BID. However, states despite increasing dosage she continues to have multiple seizures a day. Reports yesterday patient had several seizures with the last occurring at 17:16 hours. No seizures through the night. States this morning patient had a seizure at 06:21 hours, lasting 30 seconds. Patient had a seizure while waiting in the lobby today. Caregiver denies any fevers, cough, shortness of breath, n/v, or appearance of urinary symptoms. Caregiver states patients neurologist is Dr. Isbell and have an appointment in April. Related Data Home Medications ?Medication ?Instructions ?Recorded ?Confirmed benztropine 1 mg tablet 1 mg PO BID 08/09/19 05/10/22 docusate sodium 250 mg capsule 250 mg PO BID 08/09/19 05/10/22 sertraline 100 mg tablet 100 mg PO QPM 08/09/19 05/10/22 quetiapine 400 mg tablet 800 mg PO QPM 10/30/19 05/10/22 omeprazole 20 mg capsule,delayed 20 mg PO QDAY 10/18/21 05/10/22 release levetiracetam 500 mg 500 mg PO BID 05/10/22 05/10/22 tablet,extended release 24 hr loratadine 10 mg tablet 10 mg PO QDAY 05/10/22 05/10/22 Previous Rx's ?Medication ?Instructions ?Recorded levetiracetam 750 mg tablet 750 mg PO BID #60 tabs 11/30/24 (Keppra) levetiracetam 1,000 mg tablet 1,000 mg PO BID #60 tabs 02/28/25 (Keppra) Allergies Allergy/AdvReac Type Severity Reaction Status Date / Time lithium Allergy Severe Hallucinati Verified 11/30/24 07:30 ng Review of Systems Review of Systems ROS Unobtainable: unobtainable due to medical condition Past Medical History Past Medical History NEUROLOGIC: Positive Neurological Disorders, Seizures and Epilepsy CARDIAC: Positive Cardiac Disorders and Hypertension PSYCHO/SOCIAL: Positive Schizophrenia Social History SMOKING STATUS: Never smoker SUBSTANCE USE: does not use ED Exam Narrative Physical exam: GENERAL APPEARANCE: appears postictal HEENT: Normocephalic, atraumatic; pupils equal, round, reactive to light; EOMI; mucous membranes pink, moist; oropharynx clear NECK: Supple LUNGS: CTABL; no wheezes, no rales, no rhonchi HEART: Regular rate, regular rhythm; normal S1, S2; no murmurs ABDOMEN: non distended; normal BS; soft, no tenderness, no guarding, no rebound; no masses, no organomegaly, no hernia BACK: no CVA tenderness EXTREMITIES: atraumatic; no edema NEUROLOGIC: altered, appears postictal; cranial nerves II-XII grossly intact; no focal sensory or motor deficits PSYCHIATRIC: appropriate mood and affect SKIN: warm, dry, normal color; no rashes Course Course Course Narrative: 1302: Notified by RN patient had a seizure. Ordered 2mg Versed. We reviewed all the results, analysis, and treatment plans. Caregiver is amenable to discharge. Strict return precautions were outlined. Patient was discharged in stable condition. Quality Measures none Orders Category Date Time Status EKG (ED ONLY) *Do not use* NOW Care 03/02/25 11:08 Completed In and Out Catheter X1 Care 03/02/25 11:32 Completed Insert IV NOW Care 03/02/25 11:18 Active EKG (ED Only) Stat Exams 03/02/25 11:08 Draft CBC Stat Lab 03/02/25 11:05 Completed CMP [Comprehensive Metabolic Panel] Stat Lab 03/02/25 11:05 Completed Levetiracetam (Keppra)* Stat Lab 03/02/25 11:05 Received Magnesium Stat Lab 03/02/25 11:05 Completed UA, C/S IF [Urinalysis, C/S if Indicated] Stat Lab 03/02/25 11:34 Completed KCL 10% Liq UDC 15 ML Med 03/02/25 12:39 Discontinued 40 meq PO X1 ONE Magnesium Oxide [Mag-Ox 400] Med 03/02/25 12:39 Discontinued 400 mg PO X1 ONE Magnesium Sulfate 2 GM Ivpb [Magnesium Sulfate Ivpb] Med 03/02/25 13:27 Active 2 gm in 50 ml IV X1 Midazolam Inj [Versed Inj] Med 03/02/25 13:05 Discontinued 2 mg IVP X1 ONE POTASSIUM CHL 10 mEq IVPB [Kcl Ivpb] Med 03/02/25 13:19 Active 10 meq in 100 ml IV Q1H Sodium Chloride 0.9% 500 ml [Ns] 500 ml Med 03/02/25 13:25 Discontinued IV 999 mls/hr levETIRAcetam INJ [Keppra Inj] Med 03/02/25 11:04 Discontinued 1,000 mg IVP X1 ONE Vital Signs Vital signs: Vital Signs Temperature 100.1 F 03/02/25 11:03 Pulse Rate 126 H 03/02/25 11:03 Respiratory Rate 18 03/02/25 11:03 Blood Pressure 144/88 H 03/02/25 11:03 Pulse Oximetry (%) 97 03/02/25 11:03 Oxygen Delivery Method Room Air 03/02/25 11:03 Pulse ox is 97% on room air which is adequate. Seizure MDM Narrative MDM Narrative:: Rosi Mancuso am scribing for and in the presence of Dr. Flores. Patient data External records reviewed:: [facility] previous records (I reviewed ED visit on 02/28/2025 for seizure) Clinical information provided by:: tactical intelligence officer Social determinants that could affect healthcare access:: housing (assisted resident) Patient has the following chronic illnesses:: developmental delay, seizures, hypertension How is presenting disease/condition affected by chronic disease/condition?: exacerbated by Evaluation data The following diagnostics were reviewed and interpreted by me:: lab results and EKG tracing(s) Lab and/or radiology exams considered but not ordered:: None Interpretation Summary: EK03/02/2025 @ 11:09 AM. Sinus tachycardia, HR 129, low voltage in inferior leads, poor R-wave progression, no acute ischemic changes. Medications / Prescriptions Medications or Prescriptions considered but not ordered:: None Medication administrations:: Medication Administration History Potassium Chloride (Kcl Ivpb) 10 meq in 100 mls @ 100 mls/hr IV Q1H ALBERTO Stop: 03/02/25 17:18 Last Admin: 03/02/25 14:26 Dose: 100 mls/hr Documented By: Infusion: 03/02/25 14:26 Dose: Infused Documented By: Admin: 03/02/25 13:29 Dose: 100 mls/hr Documented By: CARLOS EDUARDO Magnesium Sulfate (Magnesium Sulfate Ivpb) 2 gm in 50 mls @ 25 mls/hr IV X1 ONE Stop: 03/02/25 15:26 Last Admin: 03/02/25 13:35 Dose: 25 mls/hr Documented By: PAT Discontinued Medications Sodium Chloride (Ns) 500 mls @ 999 mls/hr IV .Q31M ONE Stop: 03/02/25 13:55 Last Admin: 03/02/25 13:31 Dose: 999 mls/hr Documented By: CARLOS EDUARDO Levetiracetam (Levetiracetam Inj 100 Mg/Ml Vial 5ml) 1,000 mg IVP X1 ONE Stop: 03/02/25 11:05 Last Admin: 03/02/25 11:18 Dose: 1,000 mg Documented By: PAT Magnesium Oxide (Magnesium Oxide 400 Mg Tablet) 400 mg PO X1 ONE Stop: 03/02/25 12:40 Last Admin: 03/02/25 13:27 Dose: Not Given Documented By: TILA Non-Admin Reason: Change of Condition Midazolam HCl (Midazolam Inj 1 Mg/Ml Vial 2 Ml) 2 mg IVP X1 ONE Stop: 03/02/25 13:06 Last Admin: 03/02/25 13:10 Dose: 2 mg Documented By: TILA Potassium Chloride (Potassium Chloride 10% 20 Meq/15 Ml Udc) 40 meq PO X1 ONE Stop: 03/02/25 12:40 Last Admin: 03/02/25 13:27 Dose: Not Given Documented By: TILA Non-Admin Reason: Change of Condition See above Consultations Consultation(s) initiated? (list below): No Diagnosis Seizure Differential Diagnosis: intractable seizure disorder, focal seizure, epileptic seizure and status epilepticus Most likely diagnosis given after review of the tests above:: Recurrent seizures Admission Indicated Admission indicated?: not indicated Admission Request Was there a request for admission?: No Disposition Plan Disposition Plan: Discharge Discharge Attestation Discharge Attestation: The patient and all family members were given an opportunity to ask questions and understood the discharge instructions. Discharge instructions specifically effects, indications for sooner follow up or return to the emergency department, and the expected course of current diagnosis. Patient condition: Stable Discharge Plan Plan Patient Disposition: HOME (Self Care) Prescriptions/Referrals Prescriptions/Med Rec: No Action quetiapine 400 mg Tablet 800 mg PO QPM sertraline 100 mg tablet 100 mg PO QPM benztropine 1 mg tablet 1 mg PO BID docusate sodium 250 mg Capsule 250 mg PO BID omeprazole 20 mg Capsule,Delayed Release(Dr/Ec) 20 mg PO QDAY loratadine 10 mg tablet 10 mg PO QDAY levetiracetam 500 mg tablet extended release 24 hr 500 mg PO BID levetiracetam [Keppra] 750 mg tablet 750 mg PO BID Qty: 60 0RF Rx Instructions: Stop the 500 mg dose and start the start the 750 g dose today levetiracetam [Keppra] 1,000 mg tablet 1,000 mg PO BID Qty: 60 0RF Referrals: Cherelle Butts NP [Primary Care Provider] - In 1 week Problem List Clinical Impression: Recurrent seizures Patient/Caregiver Discharge Instructions Education Materials: ED Seizure, Recurrent (Adult) Print Language: Paraguayan Stand Alone Forms: Nena Award Info., Patient Portal Info Letter
--- NOTE | 2025-03-02 11:08 | EKG_ITS ---
[facility] Test Date: 2025-03-02 Pat Name: JOY LOPEZ Department: Room: - Gender: Female [place]: : 1970 Requested By: Rajwinder Martinez Order Number: [id number] Reading MD: Rajwinder Martinez Measurements Intervals [place] Rate: 129 P: 54 NH: 138 QRS: 67 QRSD: 77 T: 46 QT: 329 QTc: 482 Interpretive Statements SINUS TACHYCARDIA NONSPECIFIC T-WAVE ABNORMALITY ABNORMAL RHYTHM ECG Compared to ECG 02/28/2025 00:52:39 Sinus rhythm no longer present T-wave abnormality still present /store/S0/[id number].pdf
[2025-03-02 11:14] LABS: Basophils # (Auto) 0.1 Thou/mm3 (0.0-0.2); Basophils % (Auto) 1 % (0-2.5); Eosinophils # (Auto) 1.3 Thou/mm3 (0.0-0.5); Eosinophils % (Auto) 12 % (0-10); Hematocrit 39.2 % (36.0-46.0); Hemoglobin 13.4 g/dL (12.0-16.0); Immature Granulocytes Auto 0.04 Thou/mm3 (0.00-0.00); Lymphocytes # (Auto) 1.6 Thou/mm3 (1.0-4.8); Lymphocytes % (Auto) 16 % (10-50); Mean Corpuscular HGB Conc 34.2 g/dl (31.0-37.0); Mean Corpuscular Hemoglobin 30.3 pg (25.0-35.0); Mean Corpuscular Volume 89 fL (80-100); Monocytes # (Auto) 0.8 Thou/mm3 (0.0-0.8); Monocytes % (Auto) 8 % (0-12); Neutrophils # (Auto) 6.6 Thou/mm3 (1.8-7.7); Neutrophils % (Auto) 64 % (37-80); Nucleated Red Blood Cell # 0.00 Thou/mm3 (0.00-0.00); Nucleated Red Blood Cell % 0 /100 WBC (0); Platelet Count 254 Thou/mm3 (140-440); RDW Standard Deviation 41.5 fL (36.4-46.3); Red Blood Count 4.42 Miln/mm3 (4.00-5.20); White Blood Count 10.3 Thou/mm3 (3.6-11.0)
[2025-03-02] MEDS: levETIRAcetam INJ 100 MG/ML VIAL 5ML 1000 MG IVP (11:18)
[2025-03-02 11:34] LABS: Alanine Aminotransferase 35 U/L (10-49); Albumin, Serum 4.7 gm/dL (3.5-5.0); Albumin/Globulin Ratio 1.7 (1.2-2.2); Alkaline Phosphatase 126 U/L (46-116); Anion Gap 13 (7-16); Aspartate Amino Transferase 23 U/L (0-34); BUN/Creatinine Ratio 10 Ratio (12-20); Bilirubin,Total 0.5 mg/dL (0.3-1.2); Blood Urea Nitrogen 7 mg/dL (9-23); Calcium 9.6 mg/dL (8.3-10.6); Calcium (Corrected) 9.6 mg/dL (8.5-10.1); Carbon Dioxide 22.7 mMol/L (20.0-31.0); Chloride 105 mMol/L (98-107); Creatinine (Component) 0.7 mg/dL (0.6-1.3); Estimated Creatinine Clearance 63.4 mL/min (>60); Globulin 2.7 gm/dL (2.3-3.5); Glucose 140 mg/dL (74-106); Osmolality,Calculated 281 (275-295); Potassium 3.0 mMol/L (3.4-5.1); Sodium 141 mMol/L (136-145); Total Protein 7.4 gm/dL (5.7-8.2); eGFR > 60 See Note
[2025-03-02 11:36] LABS: Collection Type, Urine Clean Catch
[2025-03-02 11:49] LABS: Bacteria,Urine Rare; Bilirubin,Urine Negative (Negative); Blood,Urine 2+ (Negative); Clarity,Urine Clear (Clear/Hazy); Color,Urine Yellow (Lt Yel-Yel); Culture Indicated,Urine Not Indicated; Glucose, Urine Negative (Negative); Ketones,Urine Negative (Negative); Leukocyte Esterase,Urine Negative (Negative); Nitrite,Urine Negative (Negative); PH,Urine 6.0 (5.0-7.0); Protein,Urine Negative (Neg - Trace); RBC,Urine 15 /hpf (0-3); Specific Gravity,Urine 1.012 (1.001-1.035); Squamous Epithelial Cell,Urine < 1 /hpf (0-5); Urobilinogen,Urine Negative mg/dL (0.0-1.0); WBC,Urine 1 /hpf (0-5)
[2025-03-02 12:58] LABS: Magnesium 2.0 mg/dL (1.6-2.6)
[2025-03-02] MEDS: MIDAZOLAM INJ 1 MG/ML VIAL 2 ML 2 MG IVP (13:10)
[2025-03-02] MEDS: POTASSIUM CHL 10 mEq IVPB 10 MEQ/100 ML BAG 100 MEQ IV ×4 (13:29→16:54)
[2025-03-02] MEDS: SODIUM CHLORIDE 0.9% 500 ML 500 ML 999 ML IV (13:31)
[2025-03-02] MEDS: Magnesium Sulfate 2 GM Ivpb 2 GM/50 ML BAG IV (13:35)
[2025-03-07 14:41] LABS: Levetiracetam (Keppra)* 57.3 mcg/mL (6.0-46.0)
== END 2025-03-02 19:00 | disposition home or self-care (01) ==
PROVIDERS: Emergency Provider Emergency Medicine; PCP Registered Nurse
DX: G40.909 Epilepsy, unspecified, not intractable, without status epilepticus (principal); R00.0 Tachycardia, unspecified; I10 Essential (primary) hypertension
CPT/HCPCS: 51701; 36415; 80053; 80177; 81001; 83735; 85025; 93005; 96361; 96365; 96366; 96375; 99283; J1953; J2250; J3475; J3480; J7999

== ENCOUNTER 2025-03-05 14:43 | Inpatient (IN) | payer MEDICAID, SELFPAY ==
[2025-03-05] VITALS (11 sets, daily range): BP systolic 100–143; BP diastolic 66–90; PULSE 84–130; RESP 12–27; TEMP 36.3–37.3; O2SAT 94–100
--- NOTE | 2025-03-05 15:13 | PD.EDADULT ---
ED General RME/HPI General Chief complaint: Seizure Stated complaint: SEIZURES Time Seen by Provider: 03/05/25 15:08 Arrival date/time: 03/05/25 14:43 RME / HPI RME / HPI narrative: DR. GERARDO MAIN ED EVALUATION: 54-year-old female with past medical history of developmental delay, seizures, and hypertension presents to the Emergency Department BIBA from her assisted for seizure. No history obtained from patient due to being nonverbal. Per EMS, patient is typically able to walk and talk at baseline in the assisted where she resides. No further history at this time. Related Data Home Medications ?Medication ?Instructions ?Recorded ?Confirmed docusate sodium 250 mg capsule 250 mg PO BID 08/09/19 03/06/25 sertraline 100 mg tablet 150 mg PO QDAY 08/09/19 03/06/25 levetiracetam 500 mg 500 mg PO BID 05/10/22 03/06/25 tablet,extended release 24 hr loratadine 10 mg tablet 10 mg PO QDAY 05/10/22 03/06/25 cenobamate 100 mg tablet (Xcopri) 100 mg PO QDAY 03/06/25 03/06/25 lamotrigine 100 mg tablet 100 mg PO BID 03/06/25 03/06/25 medroxyprogesterone 10 mg tablet 10 mg PO QDAY 03/06/25 03/06/25 (Provera) quetiapine 400 mg tablet,extended 800 mg PO .qhs 03/06/25 03/06/25 release 24 hr valbenazine 80 mg capsule 80 mg PO QDAY 03/06/25 03/06/25 (Ingrezza) zonisamide 100 mg capsule 400 mg PO .qhs 03/06/25 03/06/25 Allergies Allergy/AdvReac Type Severity Reaction Status Date / Time lithium Allergy Severe Hallucinati Verified 11/30/24 07:30 ng Review of Systems Review of Systems Systems Reviewed: All systems reviewed, normal except as documented Past Medical History Past Medical History NEUROLOGIC: Positive Neurological Disorders, Seizures and Epilepsy CARDIAC: Positive Cardiac Disorders and Hypertension PSYCHO/SOCIAL: Positive Schizophrenia Social History SMOKING STATUS: Unknown if ever smoked SUBSTANCE USE: does not use Course Quality Measures none Orders Category Date Time Status Admit to Inpatient Status Routine Admission 03/05/25 23:34 Active Patient Condition Routine Admission 03/05/25 23:34 Ordered In and Out Catheter X1 Care 03/05/25 16:32 Completed Miscellaneous Nursing Order NOW Care 03/05/25 15:10 Active Miscellaneous Nursing Order NOW Care 03/05/25 23:34 Active NPO NOW Care 03/05/25 23:37 Active Neuro Check Q4H START 00 Care 03/05/25 23:37 Active Notify provider NEEDED Care 03/05/25 23:34 Active Seizure precautions NOW Care 03/05/25 23:36 Active Diet NPO (NOW) Diet 03/05/25 23:[address] head/brain wo con Stat Exams 03/05/25 20:43 Completed CBC AM DRAW Lab 03/06/25 05:00 Completed CBC AM DRAW Lab 03/07/25 05:19 Completed CBC AM DRAW Lab 03/08/25 05:00 Ordered CBC Stat Lab 03/05/25 15:00 Completed Comprehensive Metabolic Panel AM DRAW Lab 03/06/25 05:58 Completed Comprehensive Metabolic Panel AM DRAW Lab 03/07/25 05:19 Completed Comprehensive Metabolic Panel AM DRAW Lab 03/08/25 05:00 Ordered Comprehensive Metabolic Panel Stat Lab 03/05/25 15:00 Completed Drug Screen,Urine Stat Lab 03/05/25 16:34 Completed Lactate (Lactic Acid) Stat Lab 03/05/25 15:00 Completed Lipid Panel AM DRAW Lab 03/06/25 05:58 Completed Magnesium AM DRAW Lab 03/06/25 05:58 Completed Magnesium AM DRAW Lab 03/07/25 05:19 Completed Magnesium AM DRAW Lab 03/08/25 05:00 Ordered Partial Thromboplastin Time AM DRAW Lab 03/06/25 05:58 Completed Phosphorous AM DRAW Lab 03/06/25 05:58 Completed Phosphorous AM DRAW Lab 03/07/25 05:19 Completed Phosphorous AM DRAW Lab 03/08/25 05:00 Ordered Prothrombin Time with INR AM DRAW Lab 03/06/25 05:58 Completed Thyroid Stimulating Hormone AM DRAW Lab 03/06/25 05:58 Completed Urinalysis Stat Lab 03/05/25 16:34 Completed Urinalysis, C/S if Indicated Stat Lab 03/05/25 16:34 Completed Urine Culture Stat Lab 03/05/25 16:34 Completed Venous Blood Gas Stat Lab 03/05/25 15:00 Completed Acetaminophen Supp [Tylenol Supp] Med 03/05/25 23:34 Active 650 mg UT Q6HR PRN Diazepam Inj [Valium Inj] Med 03/05/25 22:34 Discontinued 2.5 mg IVP X1 ONE Diazepam Inj [Valium Inj] Med 03/05/25 23:42 Discontinued 5 mg IVP X1 ONE Enoxaparin [Lovenox] Med 03/06/25 09:00 Active 40 mg SC QDAY Midazolam Inj [Versed Inj] Med 03/05/25 20:03 Discontinued 2.5 mg IVP X1 ONE Midazolam Inj [Versed Inj] Med 03/05/25 20:28 Discontinued 2.5 mg IVP X1 ONE Midazolam Inj [Versed Inj] Med 03/05/25 19:56 Discontinued 4 mg .ROUTE .STK-MED ONE Midazolam Inj [Versed Inj] Med 03/05/25 16:06 Discontinued 5 mg IVP X1 ONE Midazolam Inj [Versed Inj] Med 03/05/25 20:01 Discontinued 5 mg IVP X1 ONE Ondansetron Inj [Zofran Inj] Med 03/05/25 23:34 Active 4 mg IVP Q6H PRN cefTRIAXone/D5w 1gm IV premix [Rocephin/D5w 1gm IV Med 03/06/25 21:00 Active premix] 1 gm in 50 ml IV DAILY@2100 cefTRIAXone/D5w 1gm IV premix [Rocephin/D5w 1gm IV Med 03/05/25 23:38 Discontinued premix] 1 gm in 50 ml IV QDAY cefTRIAXone/D5w 1gm IV premix [Rocephin/D5w 1gm IV Med 03/05/25 21:29 Discontinued premix] 1 gm in 50 ml IV X1 levETIRAcetam INJ [Keppra Inj] Med 03/05/25 16:06 Discontinued 1,000 mg IVP X1 ONE levETIRAcetam INJ [Keppra Inj] Med 03/05/25 23:20 Discontinued 2,500 mg IVP X1 ONE Code Status Routine Oth 03/05/25 23:34 Ordered EEG Extended Monitoring EEG Stat RT 03/05/25 23:39 Taken Oxygen Delivery NOW RT 03/05/25 23:37 Active Vital Signs Vital signs: Vital Signs Temperature 99.2 F 03/05/25 15:06 Pulse Rate 130 H 03/05/25 15:06 Respiratory Rate 14 03/05/25 15:06 Blood Pressure 143/90 H 03/05/25 15:06 Pulse Oximetry (%) 95 03/05/25 15:06 Oxygen Delivery Method Room Air 03/05/25 15:06 Discharge Plan Plan Patient Disposition: Admit Acute Care w/in Hospital Problem List Clinical Impression: Recurrent seizures, UTI (urinary tract infection) MDM Narrative MDM hospital course: I, Beverly Ramsey am scribing for and in the presence of Dr. Gerardo. Clinical Information Provided by EMS [facility] Meds/Rx Considered, not Ordered None Labs/Rad/Tests considered, not Ordered None Chronic Illness/Social Conditions Add or document further as needed: developmental delay, seizures, and hypertension EKG EKG not done Lab Interpretation Labs: other (pending labs at sign out) Imaging Imaging interpretation: none Medication Administration(s) Medication Administration History Acetaminophen (Acetaminophen Supp 650 Mg Supp) 650 mg UT Q6HR PRN PRN Reason: Fever > 100.4 or pain Stop: 04/04/25 23:33 Xcopri 100 Mg Tablet 0 ea PO QDAY@0800 [facility] Stop: 04/05/25 14:59 Last Admin: 03/06/25 15:07 Dose: 1 tablet Documented By: KARLI Ingrezza 80 Mg (Capsule) 0 ea PO QDAY@0800 [facility] Stop: 04/05/25 15:14 Last Admin: 03/06/25 15:11 Dose: 1 capsule Documented By: KARLI Comments: unable to scan label Enoxaparin Sodium (Enoxaparin Sod Inj 40 Mg/0.4 Ml Syringe) 40 mg SC QDAY [facility] Stop: 03/20/25 08:59 Last Admin: 03/06/25 08:47 Dose: 40 mg Documented By: KARLI Ceftriaxone Sodium/Dextrose (Rocephin/D5w 1gm Iv Premix) 1 gm in 50 mls @ 100 mls/hr IV DAILY@2100 [facility] Stop: 03/13/25 20:59 Last Admin: 03/06/25 21:49 Dose: 100 mls/hr Documented By: GRECIA Norepinephrine Bitartrate (Levophed In Ns 16mg/250ml) 16 mg in 250 mls @ 2.87 mls/hr IV .Q24H PRN; Protocol PRN Reason: PER PROTOCOL Stop: 04/05/25 01:40 Propofol (Diprivan Ivpb) 1,000 mg in 100 mls @ 1.837 mls/hr IV .Q24H PRN; Protocol PRN Reason: PER PROTOCOL Stop: 04/05/25 01:38 Last Titration: 03/07/25 07:32 Dose: 0 mcg/kg/min, 0 mls/hr Documented By: Titration: 03/07/25 07:00 Dose: 45 mcg/kg/min, 16.533 mls/hr Documented By: Titration: 03/07/25 06:51 Dose: 45 mcg/kg/min, 16.533 mls/hr Documented By: Titration: 03/07/25 06:00 Dose: 40 mcg/kg/min, 14.696 mls/hr Documented By: Admin: 03/07/25 05:30 Dose: 45 mcg/kg/min, 16.533 mls/hr Documented By: GRECIA Co-signed By: TED Lamotrigine (Lamotrigine 100 Mg Tablet) 100 mg PO BID ALBERTO Stop: 04/05/25 08:59 Last Admin: 03/06/25 21:49 Dose: 100 mg Documented By: Admin: 03/06/25 09:54 Dose: 100 mg Documented By: KARLI Levetiracetam (Levetiracetam Inj 100 Mg/Ml Vial 5ml) 1,000 mg IVP Q12HR ALBERTO Stop: 04/05/25 08:59 Last Admin: 03/06/25 21:30 Dose: 1,000 mg Documented By: Admin: 03/06/25 08:47 Dose: 1,000 mg Documented By: KARLI Ondansetron HCl (Ondansetron Inj 2 Mg/Ml Inj 2 Ml) 4 mg IVP Q6H PRN; Protocol PRN Reason: NAUSEA OR VOMITING Stop: 04/04/25 23:33 Pantoprazole Sodium (Pantoprazole Inj 40 Mg Vial) 40 mg IVP Q24H ALBERTO Stop: 04/05/25 02:59 Last Admin: 03/07/25 03:04 Dose: 40 mg Documented By: Admin: 03/06/25 03:05 Dose: 40 mg Documented By: ALO Zonisamide (Zonisamide 100 Mg Capsule) 400 mg PO HS ALBERTO Stop: 04/05/25 20:59 Last Admin: 03/06/25 21:49 Dose: 400 mg Documented By: GRECIA Discontinued Medications Ingrezza 80 Mg (Capsule) 0 ea PO QDAY@0800 [facility] Stop: 04/05/25 07:59 Last Admin: 03/06/25 15:54 Dose: Not Given Documented By: KARLI Non-Admin Reason: Cancelled by Provider Diazepam (Diazepam Inj 5 Mg/Ml Vial 2 Ml) 2.5 mg IVP X1 ONE Stop: 03/05/25 22:35 Last Admin: 03/05/25 22:49 Dose: 2.5 mg Documented By: KRISHNA Diazepam (Diazepam Inj 5 Mg/Ml Vial 2 Ml) 5 mg IVP X1 ONE Stop: 03/05/25 23:43 Last Admin: 03/05/25 23:51 Dose: 5 mg Documented By: KRISHNA Etomidate (Etomidate Inj 2 Mg/Ml Vial 10 Ml) 10 mg IVP X1 ONE Stop: 03/06/25 01:21 Last Admin: 03/06/25 01:30 Dose: 10 mg Documented By: KRISHNA Fentanyl Citrate (Fentanyl Cit Inj 50 Mcg/Ml Amp 2ml) 50 mcg IVP X1 ONE Stop: 03/07/25 00:21 Last Admin: 03/07/25 00:34 Dose: 50 mcg Documented By: GRECIA Ceftriaxone Sodium/Dextrose (Rocephin/D5w 1gm Iv Premix) 1 gm in 50 mls @ 100 mls/hr IV X1 ONE Stop: 03/05/25 21:58 Last Infusion: 03/05/25 22:45 Dose: Infused Documented By: Admin: 03/05/25 21:45 Dose: 100 mls/hr Documented By: KRISHNA Ceftriaxone Sodium/Dextrose (Rocephin/D5w 1gm Iv Premix) 1 gm in 50 mls @ 100 mls/hr IV QDAY [facility] Stop: 03/12/25 23:37 Last Admin: 03/05/25 23:45 Dose: Not Given Documented By: KRISHNA Non-Admin Reason: Cancelled by Provider Propofol (Diprivan Ivpb) 1,000 mg in 100 mls @ 1.837 mls/hr IV .Q24H PRN; Protocol PRN Reason: PER PROTOCOL Stop: 04/05/25 01:38 Last Titration: 03/07/25 05:00 Dose: Infused Documented By: Titration: 03/07/25 04:00 Dose: Infused Documented By: Titration: 03/07/25 03:00 Dose: 50 mcg/kg/min, 18.371 mls/hr Documented By: Titration: 03/07/25 02:00 Dose: 50 mcg/kg/min, 18.371 mls/hr Documented By: Titration: 03/07/25 01:00 Dose: 50 mcg/kg/min, 18.371 mls/hr Documented By: Titration: 03/07/25 00:00 Dose: 50 mcg/kg/min, 18.371 mls/hr Documented By: Titration: 03/06/25 23:00 Dose: 50 mcg/kg/min, 18.371 mls/hr Documented By: Admin: 03/06/25 22:30 Dose: 50 mcg/kg/min, 18.371 mls/hr Documented By: BB Co-signed By: ZP Titration: 03/06/25 22:30 Dose: Infused Documented By: Titration: 03/06/25 22:00 Dose: 50 mcg/kg/min, 18.371 mls/hr Documented By: Titration: 03/06/25 21:00 Dose: 50 mcg/kg/min, 18.371 mls/hr Documented By: Titration: 03/06/25 20:00 Dose: 50 mcg/kg/min, 18.371 mls/hr Documented By: Titration: 03/06/25 19:00 Dose: 50 mcg/kg/min, 18.371 mls/hr Documented By: Titration: 03/06/25 18:00 Dose: 50 mcg/kg/min, 18.371 mls/hr Documented By: Admin: 03/06/25 17:44 Dose: 50 mcg/kg/min, 18.371 mls/hr Documented By: MGSobeida Co-signed By: AT Titration: 03/06/25 17:44 Dose: Infused Documented By: Titration: 03/06/25 17:00 Dose: 50 mcg/kg/min, 18.371 mls/hr Documented By: Titration: 03/06/25 16:00 Dose: 50 mcg/kg/min, 18.371 mls/hr Documented By: Titration: 03/06/25 15:00 Dose: 50 mcg/kg/min, 18.371 mls/hr Documented By: Titration: 03/06/25 14:00 Dose: 50 mcg/kg/min, 18.371 mls/hr Documented By: Titration: 03/06/25 13:00 Dose: 50 mcg/kg/min, 18.371 mls/hr Documented By: Admin: 03/06/25 12:43 Dose: 50 mcg/kg/min, 18.371 mls/hr Documented By: LW Co-signed By: MGD Titration: 03/06/25 12:43 Dose: Infused Documented By: LW Co-signed By: MGD Titration: 03/06/25 12:00 Dose: 50 mcg/kg/min, 18.371 mls/hr Documented By: Titration: 03/06/25 11:00 Dose: 50 mcg/kg/min, 18.371 mls/hr Documented By: Titration: 03/06/25 10:00 Dose: 50 mcg/kg/min, 18.371 mls/hr Documented By: Titration: 03/06/25 09:00 Dose: 50 mcg/kg/min, 18.371 mls/hr Documented By: Titration: 03/06/25 08:00 Dose: 50 mcg/kg/min, 18.371 mls/hr Documented By: Admin: 03/06/25 07:16 Dose: 50 mcg/kg/min, 18.371 mls/hr Documented By: KARLI Co-signed By: AT Titration: 03/06/25 07:16 Dose: Infused Documented By: KARLI Co-signed By: AT Titration: 03/06/25 07:00 Dose: 50 mcg/kg/min, 18.371 mls/hr Documented By: Titration: 03/06/25 06:00 Dose: 50 mcg/kg/min, 18.371 mls/hr Documented By: Titration: 03/06/25 05:00 Dose: 50 mcg/kg/min, 18.371 mls/hr Documented By: Titration: 03/06/25 04:00 Dose: 50 mcg/kg/min, 18.371 mls/hr Documented By: Titration: 03/06/25 03:45 Dose: 50 mcg/kg/min, 18.371 mls/hr Documented By: Titration: 03/06/25 03:18 Dose: 30 mcg/kg/min, 11.022 mls/hr Documented By: Titration: 03/06/25 03:10 Dose: 25 mcg/kg/min, 9.185 mls/hr Documented By: Titration: 03/06/25 03:02 Dose: 20 mcg/kg/min, 7.348 mls/hr Documented By: Titration: 03/06/25 02:57 Dose: 15 mcg/kg/min, 5.511 mls/hr Documented By: Titration: 03/06/25 02:48 Dose: 10 mcg/kg/min, 3.674 mls/hr Documented By: Admin: 03/06/25 01:48 Dose: 5 mcg/kg/min, 1.837 mls/hr Documented By: WO Co-signed By: KRISHNA Midazolam HCl (Versed Pf Inj In Ns Premix) 100 mg in 100 mls @ 1 mls/hr IV .Q24H PRN; Protocol PRN Reason: PER PROTOCOL Stop: 03/11/25 01:38 Last Titration: 03/06/25 08:37 Dose: 0 mg/hr, 0 mls/hr Documented By: Titration: 03/06/25 08:00 Dose: 10 mg/hr, 10 mls/hr Documented By: Titration: 03/06/25 07:00 Dose: 10 mg/hr, 10 mls/hr Documented By: Titration: 03/06/25 06:00 Dose: 10 mg/hr, 10 mls/hr Documented By: Titration: 03/06/25 05:00 Dose: 10 mg/hr, 10 mls/hr Documented By: Titration: 03/06/25 04:00 Dose: 10 mg/hr, 10 mls/hr Documented By: Titration: 03/06/25 03:45 Dose: 10 mg/hr, 10 mls/hr Documented By: Titration: 03/06/25 02:50 Dose: 2 mg/hr, 2 mls/hr Documented By: Admin: 03/06/25 01:48 Dose: 1 mg/hr, 1 mls/hr Documented By: WO Co-signed By: KRISHNA Phenobarbital Sodium 900 mg/ (Device) 6.9231 mls @ 13.846 mls/hr IV X1 ONE Stop: 03/06/25 03:37 Last Admin: 03/06/25 07:33 Dose: Not Given Documented By: MR Non-Admin Reason: Discontinued Phenobarbital Sodium 900 mg/ (Device) 6.9231 mls @ 13.846 mls/hr IV X1 ONE Stop: 03/06/25 03:37 Last Admin: 03/06/25 07:33 Dose: Not Given Documented By: MR Non-Admin Reason: Discontinued Potassium Chloride (Kcl Ivpb) 10 meq in 100 mls @ 100 mls/hr IV Q1H ALBERTO Stop: 03/06/25 11:50 Last Admin: 03/06/25 11:45 Dose: 100 mls/hr Documented By: Infusion: 03/06/25 11:45 Dose: Infused Documented By: Admin: 03/06/25 10:56 Dose: 100 mls/hr Documented By: Infusion: 03/06/25 10:35 Dose: Infused Documented By: Admin: 03/06/25 09:35 Dose: 100 mls/hr Documented By: Infusion: 03/06/25 09:14 Dose: Infused Documented By: Admin: 03/06/25 08:14 Dose: 100 mls/hr Documented By: KARLI Propofol (Diprivan Ivpb) Confirm Administered Dose 1,000 mg in 100 mls @ ud IV .STK-MED ONE Stop: 03/07/25 05:25 Last Admin: 03/07/25 05:45 Dose: Not Given Documented By: GRECIA Non-Admin Reason: Duplicate Medication on eMAR Labetalol HCl (Labetalol Inj 5 Mg/Ml Vial 20 Ml) 5 mg IVP X1 ONE Stop: 03/06/25 02:44 Last Admin: 03/06/25 03:44 Dose: Not Given Documented By: Non-Admin Reason: Hold per . Levetiracetam (Levetiracetam Inj 100 Mg/Ml Vial 5ml) 1,000 mg IVP X1 ONE Stop: 03/05/25 16:07 Last Admin: 03/05/25 16:13 Dose: 1,000 mg Documented By: ROSS Levetiracetam (Levetiracetam Inj 100 Mg/Ml Vial 5ml) 2,500 mg IVP X1 ONE Stop: 03/05/25 23:21 Last Admin: 03/06/25 00:16 Dose: 2,500 mg Documented By: KRISHNA Midazolam HCl (Midazolam Inj 1 Mg/Ml Vial 2 Ml) 5 mg IVP X1 ONE Stop: 03/05/25 16:07 Last Admin: 03/05/25 16:12 Dose: 5 mg Documented By: ROSS Midazolam HCl (Midazolam Inj 1 Mg/Ml Vial 2 Ml) 5 mg IVP X1 ONE Stop: 03/05/25 20:02 Last Admin: 03/05/25 20:03 Dose: Not Given Documented By: FINESSE Non-Admin Reason: Discontinued Midazolam HCl (Midazolam Inj 1 Mg/Ml Vial 2 Ml) 2.5 mg IVP X1 ONE Stop: 03/05/25 20:04 Last Admin: 03/05/25 20:06 Dose: 2.5 mg Documented By: DEVON Midazolam HCl (Midazolam Inj 1 Mg/Ml Vial 2 Ml) Confirm Administered Dose 4 mg .ROUTE .STK-MED ONE Stop: 03/05/25 19:57 Last Admin: 03/05/25 20:13 Dose: Not Given Documented By: KRISHNA Non-Admin Reason: Duplicate Medication on eMAR Midazolam HCl (Midazolam Inj 1 Mg/Ml Vial 2 Ml) 2.5 mg IVP X1 ONE Stop: 03/05/25 20:29 Last Admin: 03/05/25 20:35 Dose: 2.5 mg Documented By: KRISHNA Non-Formulary Medication (Cenobamate [Xcopri]) 100 mg PO QDAY [facility] Stop: 04/05/25 08:59 Last Admin: 03/06/25 15:54 Dose: Not Given Documented By: KARLI Non-Admin Reason: Cancelled by Provider Non-Formulary Medication (Valbenazine [Ingrezza]) 80 mg PO QDAY [facility] Stop: 04/05/25 08:59 Last Admin: 03/06/25 15:54 Dose: Not Given Documented By: KARLI Non-Admin Reason: Cancelled by Provider Potassium Chloride (Potassium Chloride 10% 20 Meq/15 Ml Udc) 20 meq NG X1 ONE Stop: 03/06/25 02:46 Last Admin: 03/06/25 03:05 Dose: 20 meq Documented By: ALO Rocuronium [place] (Rocuronium Inj 10 Mg/Ml Vial 10 Ml) 7 mg IVP X1 ONE Stop: 03/06/25 01:21 Last Admin: 03/06/25 01:38 Dose: Not Given Documented By: KRISHNA Non-Admin Reason: Cancelled by Provider Rocuronium [place] (Rocuronium Inj 10 Mg/Ml Vial 10 Ml) 70 mg IV X1 ONE Stop: 03/06/25 01:26 Last Admin: 03/06/25 01:30 Dose: 70 mg Documented By: KRISHNA Co-signed By: ALO Diagnosis Differential diagnosis: seizure disorder, intracranial pathology, metabolic disturbance Most likely dx, and/or detailed dx discussion: No official diagnoses at this time, still pending diagnostic tests. Patient signout to the shift production associate provider. Dispositon Disposition: other (Patient signed out to Dr. Weber, pending labs and final disposition.) Disposition comments: No final disposition plan at this time, still pending diagnostic tests. Patient signout to the shift production associate provider.
[2025-03-05 15:45] LABS: Lactate (Lactic Acid) 1.9 mMol/L (0.4-2.0)
[2025-03-05 15:46] LABS: Base Excess, Venous 0 (-3-3); O2 Saturation, Venous 93 % (96-97); PCO2, Venous 39 mmHg (36-56); PO2, Venous 65 mmHg (15-58); pH, Venous 7.41 (7.33-7.66)
[2025-03-05 15:58] LABS: Basophils # (Auto) 0.1 Thou/mm3 (0.0-0.2); Basophils % (Auto) 1 % (0-2.5); Eosinophils # (Auto) 0.7 Thou/mm3 (0.0-0.5); Eosinophils % (Auto) 6 % (0-10); Hematocrit 38.9 % (36.0-46.0); Hemoglobin 12.9 g/dL (12.0-16.0); Immature Granulocytes Auto 0.04 Thou/mm3 (0.00-0.00); Lymphocytes # (Auto) 0.8 Thou/mm3 (1.0-4.8); Lymphocytes % (Auto) 7 % (10-50); Mean Corpuscular HGB Conc 33.2 g/dl (31.0-37.0); Mean Corpuscular Hemoglobin 29.9 pg (25.0-35.0); Mean Corpuscular Volume 90 fL (80-100); Monocytes # (Auto) 0.6 Thou/mm3 (0.0-0.8); Monocytes % (Auto) 6 % (0-12); Neutrophils # (Auto) 8.8 Thou/mm3 (1.8-7.7); Neutrophils % (Auto) 80 % (37-80); Nucleated Red Blood Cell # 0.00 Thou/mm3 (0.00-0.00); Nucleated Red Blood Cell % 0 /100 WBC (0); Platelet Count 278 Thou/mm3 (140-440); RDW Standard Deviation 42.9 fL (36.4-46.3); Red Blood Count 4.31 Miln/mm3 (4.00-5.20); White Blood Count 10.9 Thou/mm3 (3.6-11.0)
[2025-03-05] MEDS: MIDAZOLAM INJ 1 MG/ML VIAL 2 ML 5 MG IVP (16:12)
[2025-03-05] MEDS: levETIRAcetam INJ 100 MG/ML VIAL 5ML 1000 MG IVP (16:13)
[2025-03-05 16:15] LABS: Alanine Aminotransferase 44 U/L (10-49); Albumin, Serum 4.4 gm/dL (3.5-5.0); Albumin/Globulin Ratio 1.6 (1.2-2.2); Alkaline Phosphatase 124 U/L (46-116); Anion Gap 13 (7-16); Aspartate Amino Transferase 29 U/L (0-34); BUN/Creatinine Ratio 11 Ratio (12-20); Bilirubin,Total 0.4 mg/dL (0.3-1.2); Blood Urea Nitrogen 9 mg/dL (9-23); Calcium 9.4 mg/dL (8.3-10.6); Calcium (Corrected) 9.4 mg/dL (8.5-10.1); Carbon Dioxide 22.2 mMol/L (20.0-31.0); Chloride 106 mMol/L (98-107); Creatinine (Component) 0.8 mg/dL (0.6-1.3); Globulin 2.7 gm/dL (2.3-3.5); Glucose 111 mg/dL (74-106); Osmolality,Calculated 280 (275-295); Potassium 3.2 mMol/L (3.4-5.1); Sodium 141 mMol/L (136-145); Total Protein 7.1 gm/dL (5.7-8.2); eGFR > 60 See Note
--- NOTE | 2025-03-05 16:18 | PC.NURSE ---
Addendum entered by CHRISTINE De Oliveira 03/05/25 16:24: at time of seizures pt placed on side, seizure pads already in place, oxygen placed with oxy mask at 10L per minute. pt did not vomit at time of seizures Original Note: at 1603 pt exhibiting seizure like activity nurse made aware by caregiver at bedside, dr pace made aware. first episode lasted approximately 30 sec, at 1608 pt had another episode lasting 15 sec, at 1610 pt had another episode lasting around 40 sec. pt lost consciousness and stiffened. dr pace made aware and ordered anti seizure medication kemary and also versed
[2025-03-05 17:02] LABS: Collection Type, Urine Catheter; Squamous Epithelial Cell,Urine 0 /hpf (0-5)
[2025-03-05 17:17] LABS: Bilirubin,Urine Negative (Negative); Blood,Urine 1+ (Negative); Color,Urine Yellow (Lt Yel-Yel); Glucose, Urine Negative (Negative); Ketones,Urine Trace (Negative); Leukocyte Esterase,Urine Positive (Negative); Nitrite,Urine Positive (Negative); PH,Urine 8.0 (5.0-7.0); Protein,Urine 2+ (Neg - Trace); RBC,Urine 28 /hpf (0-3); Specific Gravity,Urine 1.020 (1.001-1.035); Urobilinogen,Urine 2.0 mg/dL (0.0-1.0); WBC,Urine 487 /hpf (0-5)
[2025-03-05 17:30] LABS: Clarity,Urine Turbid (Clear/Hazy); Culture Indicated,Urine Yes
[2025-03-05 17:34] LABS: Amphetamine/Methamp Scrn,U Negative (Negative); Barbiturate Screen,Urine Negative (Negative); Benzodiazepines Screen,Urine Positive (Negative); Benzoylecgonine Screen, Ur Negative (Negative); Fentanyl Screen,Urine Negative (Negative); Opiate Screen,Urine Negative (Negative); THC Screen,Urine Negative (Negative)
--- NOTE | 2025-03-05 18:47 | EDNOTE_ITS ---
Emergency Room Addendum Addendum Narrative: 1700: Care assumed from Dr. Rascon, the previous shift emergency physician. Past medical, surgical, social and family history reviewed. Vitals and home medications reviewed. I will assume the care of the patient at this time, pending labs and final disposition. Please refer to the emergency department record for history and examination from initial visit.? Physical exam by me shows patient under no acute distress at this time. 2001: I was called to the room and patient was having a seizure. 2.5 mg of versed IV ordered. 54-year-old female with history of developmental delay, seizures, and hypertension presents after a witnessed seizure episode. No trauma, fever, or recent medication changes reported. On arrival, patient is postictal and unable to follow commands. Exam and history suggest breakthrough seizure activity. No focal neurologic deficits noted at this time. CT head ordered to evaluate for acute intracranial pathology. Neurology to be consulted. Plan for likely admission for further seizure workup and management. Differential diagnoses: breakthrough seizure, intracranial hemorrhage, and metabolic derangement. U/A showed infection, patient has an UTI. 2229: Patient seizing again. 2245: Discussed test HPI, PMHx, lab, radiology results and/or management with teleneurologist. Will consult an admission to the hospitalist. 2250: Discussed test HPI, PMHx, lab, radiology results and/or management with resident working with the hospitalist. Will admit for further evaluation and management. Accepts patient for admission. Diagnosis: -Recurrent seizures -UTI Results Objective Laboratory: Laboratory Last Values WBC 10.9 Thou/mm3 (3.6-11.0) 03/05/25 15:00 RBC 4.31 Miln/mm3 (4.00-5.20) 03/05/25 15:00 Hgb 12.9 g/dL (12.0-16.0) 03/05/25 15:00 Hct 38.9 % (36.0-46.0) 03/05/25 15:00 MCV 90 fL (80-100) 03/05/25 15:00 MCH 29.9 pg (25.0-35.0) 03/05/25 15:00 MCHC 33.2 g/dl (31.0-37.0) 03/05/25 15:00 RDW Std Deviation 42.9 fL (36.4-46.3) 03/05/25 15:00 Plt Count 278 Thou/mm3 (140-440) 03/05/25 15:00 Neut % (Auto) 80 % (37-80) 03/05/25 15:00 Lymph % (Auto) 7 % (10-50) L 03/05/25 15:00 [place] % (Auto) 6 % (0-12) 03/05/25 15:00 Eos % (Auto) 6 % (0-10) 03/05/25 15:00 Baso % (Auto) 1 % (0-2.5) 03/05/25 15:00 Neut # (Auto) 8.8 Thou/mm3 (1.8-7.7) H 03/05/25 15:00 Lymph # (Auto) 0.8 Thou/mm3 (1.0-4.8) L 03/05/25 15:00 [place] # (Auto) 0.6 Thou/mm3 (0.0-0.8) 03/05/25 15:00 Eos # (Auto) 0.7 Thou/mm3 (0.0-0.5) H 03/05/25 15:00 Baso # (Auto) 0.1 Thou/mm3 (0.0-0.2) 03/05/25 15:00 Immature Gran # (Auto) 0.04 Thou/mm3 (0.00-0.00) H 03/05/25 15:00 Absolute Nucleated RBC 0.00 Thou/mm3 (0.00-0.00) 03/05/25 15:00 Immature Gran % 0 % (0-0) 03/05/25 15:00 Nucleated RBC % 0 /100 WBC (0) 03/05/25 15:00 VBG pH 7.41 (7.33-7.66) 03/05/25 15:00 VBG pCO2 39 mmHg (36-56) 03/05/25 15:00 VBG pO2 65 mmHg (15-58) H 03/05/25 15:00 VBG O2 Sat (Mega) 93 % (96-97) L 03/05/25 15:00 VBG Base Excess 0 (-3-3) 03/05/25 15:00 Sodium 141 mMol/L (136-145) 03/05/25 15:00 Potassium 3.2 mMol/L (3.4-5.1) L 03/05/25 15:00 Chloride 106 mMol/L (98-107) 03/05/25 15:00 Carbon Dioxide 22.2 mMol/L (20.0-31.0) 03/05/25 15:00 Anion Gap 13 (7-16) 03/05/25 15:00 BUN 9 mg/dL (9-23) 03/05/25 15:00 Creatinine 0.8 mg/dL (0.6-1.3) 03/05/25 15:00 Estim Creat Clear Calc Not Performed. 03/05/25 15:00 eGFR > 60 See Note (60-) 03/05/25 15:00 BUN/Creatinine Ratio 11 Ratio (12-20) L 03/05/25 15:00 Glucose 111 mg/dL (74-106) H 03/05/25 15:00 Calculated Osmolality 280 (275-295) 03/05/25 15:00 Lactic Acid 1.9 mMol/L (0.4-2.0) 03/05/25 15:00 Calcium 9.4 mg/dL (8.3-10.6) 03/05/25 15:00 Corrected Calcium 9.4 mg/dL (8.5-10.1) 03/05/25 15:00 Total Bilirubin 0.4 mg/dL (0.3-1.2) 03/05/25 15:00 AST 29 U/L (0-34) 03/05/25 15:00 ALT 44 U/L (10-49) 03/05/25 15:00 Alkaline Phosphatase 124 U/L (46-116) H 03/05/25 15:00 Total Protein 7.1 gm/dL (5.7-8.2) 03/05/25 15:00 Albumin 4.4 gm/dL (3.5-5.0) 03/05/25 15:00 Globulin 2.7 gm/dL (2.3-3.5) 03/05/25 15:00 Albumin/Globulin Ratio 1.6 (1.2-2.2) 03/05/25 15:00 Ur Collection Type Catheter 03/05/25 16:34 Urine Color Yellow (Lt Yel-Yel) 03/05/25 16:34 Urine Clarity Turbid (Clear/Hazy) A 03/05/25 16:34 Urine pH 8.0 (5.0-7.0) H 03/05/25 16:34 Ur Specific [place] 1.020 (1.001-1.035) 03/05/25 16:34 Urine Protein 2+ (Neg - Trace) A 03/05/25 16:34 Urine Glucose (UA) Negative (Negative) 03/05/25 16:34 Urine Ketones Trace (Negative) 03/05/25 16:34 Urine Blood 1+ (Negative) A 03/05/25 16:34 Urine Nitrite Positive (Negative) 03/05/25 16:34 Urine Bilirubin Negative (Negative) 03/05/25 16:34 Urine Urobilinogen (Auto) 2.0 mg/dL (0.0-1.0) 03/05/25 16:34 Ur Leukocyte Esterase Positive (Negative) 03/05/25 16:34 Urine RBC 28 /hpf (0-3) H 03/05/25 16:34 Urine WBC 487 /hpf (0-5) H 03/05/25 16:34 Ur Squamous Epith Cells 0 /hpf (0-5) 03/05/25 16:34 Urine Bacteria None (None) 03/05/25 16:34 Ur Culture Indicated? Yes 03/05/25 16:34 Urine Opiates Screen Negative (Negative) 03/05/25 16:34 Urine Fentanyl Screen Negative (Negative) 03/05/25 16:34 Ur Barbiturates Screen Negative (Negative) 03/05/25 16:34 U Amphetamin/Meth Scrn Negative (Negative) 03/05/25 16:34 U Benzodiazepines Scrn Positive (Negative) A 03/05/25 16:34 U Cocaine Metab Screen Negative (Negative) 03/05/25 16:34 U Marijuana (THC) Screen Negative (Negative) 03/05/25 16:34 Imaging: Procedure(s): CT head/brain wo con Accession Number(s): [id number] cc: Gino Weber DO; Caden Lopez MD; Cherelle Butts NP~ Examination: CT brain head without contrast. 2-D sagittal coronal reconstructions Date and time of exam:March 05, 2025 2101 hours Comparison November 30, 2024 INDICATIONS: Recurrent seizures today CTDI: vol (mGy):46.40 DLP: (mGycm):869 Technique: Multiple CT axial sections of the brain have been obtained, 5 mm slice thickness. Contrast has not been administered. 2-D sagittal, coronal reconstructions have been obtained Low dose protocols were performed. One or more of the following dose reduction techniques were used; automated exposure control, adjustment of the mA and/or KV according to patient size, use of iterative reconstruction technique. Findings: No significant ventricular enlargement. Intra-axial or extra-axial hemorrhage density is not seen. No mass effect or midline shift Basal cisterns are not remarkable. Fourth ventricle is midline. Cranial vault intact. Impression: Negative for acute hemorrhage, mass effect or midline shift Consider elective brain MRI follow-up, pre and postcontrast, seizure protocol Dictated By: Caden Lopez MD
--- NOTE | 2025-03-05 20:02 | PC.NURSE ---
Patient was having seizure like activity Dr. Archer was notified orders for medication were placed.
[2025-03-05] MEDS: MIDAZOLAM INJ 1 MG/ML VIAL 2 ML 2.5 MG IVP ×2 (20:06→20:35)
--- NOTE | 2025-03-05 20:13 | PC.NURSE ---
per pts sister shirley, witness a 30sec absent seizure
--- NOTE | 2025-03-05 20:16 | PC.NURSE ---
versed was given by rn, see mar. pt right now has sister at bedside and media buyer. vss. pt is resting chest rise and fall noted
--- NOTE | 2025-03-05 20:28 | PC.NURSE ---
patient had another seizure like activity per family that lasted approx 30 seconds.
--- NOTE | 2025-03-05 20:32 | PC.NURSE ---
per family pt had another seizure. provider at bedside assessing pt
--- NOTE | 2025-03-05 20:43 | XR_ITS ---
Examination: CT brain head without contrast. 2-D sagittal coronal reconstructions Date and time of exam:March 05, 2025 2101 hours Comparison November 30, 2024 INDICATIONS: Recurrent seizures today CTDI: vol (mGy):46.40 DLP: (mGycm):869 Technique: Multiple CT axial sections of the brain have been obtained, 5 mm slice thickness. Contrast has not been administered. 2-D sagittal, coronal reconstructions have been obtained Low dose protocols were performed. One or more of the following dose reduction techniques were used; automated exposure control, adjustment of the mA and/or KV according to patient size, use of iterative reconstruction technique. Findings: No significant ventricular enlargement. Intra-axial or extra-axial hemorrhage density is not seen. No mass effect or midline shift Basal cisterns are not remarkable. Fourth ventricle is midline. Cranial vault intact. Impression: Negative for acute hemorrhage, mass effect or midline shift Consider elective brain MRI follow-up, pre and postcontrast, seizure protocol
--- NOTE | 2025-03-05 21:15 | PC.NURSE ---
this rn took pt to ct. no seizures noted on transport. pt taken back to ed room 16 without any seizures
[2025-03-05] MEDS: cefTRIAXone/D5w 1gm IV premix 1 GM/50 ML BAG IV (21:45)
--- NOTE | 2025-03-05 22:32 | PC.NURSE ---
Case Consult 03/05/2025 22:32:34 [facility] Case # [id number] has been created.
[2025-03-05] MEDS: DIAZEPAM INJ 5 MG/ML VIAL 2 ML 2.5 MG IVP (22:49)
--- NOTE | 2025-03-05 22:52 | PC.NURSE ---
per sister, she states she witness a total of 3 seizures around the last hr. provider notified. orders given (see mar)
--- NOTE | 2025-03-05 23:09 | PC.NURSE ---
dr. alber sibley tele neuro on screen. dr. shrestha at bedside.
--- NOTE | 2025-03-05 23:11 | PC.NURSE ---
per wharf tender head, pt does not have this much seizures activity. per wharf tender head, pt normally has 3 to 4 seizures a month.
--- NOTE | 2025-03-05 23:12 | PC.NURSE ---
per dr. alber pryor they recommended aggressive seizure management and continous eeg
--- NOTE | 2025-03-05 23:15 | PC.NURSE ---
2305 & 23[address] seizures. [address] biggs at bedside for both seizures
--- NOTE | 2025-03-05 23:20 | PC.NURSE ---
seizure precautions in placed when rn arrived to unit. seizure pads placed on bed. suction connected and set up. bed in lowest position. oxy mask on pt @ 10L
--- NOTE | 2025-03-05 23:22 | PD.TNEURO ---
Tele Neuro Consultation Consultation Date 03/05/25 Most Recent Vital Signs Last Vital Signs Temp 97.6 F 03/05/25 19:48 Pulse 92 03/05/25 22:40 Resp 27 H 03/05/25 22:40 BP 125/66 03/05/25 22:40 Pulse Ox 100 03/05/25 22:40 O2 Del Method Oxy Mask 03/05/25 22:40 O2 Flow Rate 10 03/05/25 22:40 Consultation Narrative [facility] TeleNeurology Consult Services Stat Consult Patient Name:???Debbie Allen Date of :???1970 Identification Number:??? 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 I would treat this aggressively. She already received 1 g Keppra load. I would load with 60 mg/kg per ESETT trial, for total 3.5 g (add 2.5 g now). She needs to be on continuous EEG. Continue home medications as well when she is able to do so. Benzos as needed. Intubation if needed if within goals of care. Case discussed with ED Dr. Weber by phone. Recommendations: Our recommendations are outlined below. Diagnostic Studies : Continuous EEG Monitoring, with transfer for this if needed Medications : Keppra 2.5 g now (3.5 g total load for 60 mg/kg per ESETT trial) Cont home meds when able Nursing Recommendations : Neuro checks q1-2 hrs during ICU stay if critical Disposition : Neurology will follow Additional Recommendations: Seizure precautions including no driving for state mandated time frame, not discussed with pt who is unable to participate with conversation Metrics: Dispatch Time: 03/05/2025 22:32:34 Callback Response Time: 03/05/2025 22:37:49 Primary Provider Notified of Diagnostic Impression and Management Plan on: 03/05/2025 23:12:30 CT HEAD: CT head unremarkable for acute infarction or hemorrhage per Radiology:?Negative for acute hemorrhage, mass effect, or midline shift I personally reviewed all the CT images that were available to me and it showed:?No obvious new stroke or bleed Chief Complaint: breakthrough seizures History of Present Illness:Patient is a 54 year old Female. 54 yo F with h/o seizure disorder, developmental delay, presenting with breakthrough seizures. Her caregiver witnessed four 30-second seizures at home. In the ED, she had another 4-7 events. She received Versed 5, Valium 2.5, Keppra 1000. WBC 10.9. Lactate 1.9. UA+. Home anti-seizure medications are: Keppra 500 BID Lamotrigine 100 BID Zonisamide 4 x 400 QHS Xcopri 100 She was recently seen in the ED 4 days ago for increased frequency of seizures. Neurology was not consulted at that time and she was discharged from the ED. Past Medical History: ?Seizures Other PMH:? Developmental delay Medications: No Anticoagulant use? No Antiplatelet use Reviewed EMR for current medications Other Medications Pertinent To Assessment Include: Keppra 500 BID ?Lamotrigine 100 BID ?Zonisamide 4 x 400 QHS ?Xcopri 100 Allergies:? Reviewed Description:?[place] Social History: Unable To Obtain Due To Patient Status :?Patient Is Obtunded/ Comatose Family History: Family History Cannot Be Obtained Because:Patient Is Obtunded/ Comatose ROS :?ROS Cannot Be Obtained Because:? Patient Is Obtunded/ Comatose Past Surgical History: Past Surgical History Cannot Be Obtained Because: Patient Is Obtunded/ Comatose There Is No Surgical History Contributory To Today?s Visit Examination: BP(125/66),?Pulse(91),?Blood Glucose(111) 1A: Level of Consciousness - Movements to Pain?+ 2 1B: Ask Month and Age - Could Not Answer Either Question Correctly?+ 2 1C: Blink Eyes & Squeeze Hands - Performs 0 Tasks?+ 2 2: Test Horizontal Extraocular Movements - Normal?+ 0 3: Test Visual Ackerman - No Visual Loss?+ 0 4: Test Facial Palsy (Use Grimace if Obtunded) - Normal symmetry?+ 0 5A: Test Left Arm Motor Drift - No Effort Against Powell?+ 3 5B: Test Right Arm Motor Drift - No Effort Against [place]?+ 3 6A: Test Left Leg Motor Drift - No Effort Against [place]?+ 3 6B: Test Right Leg Motor Drift - No Effort Against [place]?+ 3 7: Test Limb Ataxia (FNF/Heel-Rivera) - Does Not Understand?+ 0 8: Test Sensation - Normal; No sensory loss?+ 0 9: Test Language/Aphasia - Coma/Unresponsive?+ 3 10: Test Dysarthria - Mute/Anarthric?+ 2 11: Test Extinction/Inattention - No abnormality?+ 0 NIHSS Score:?23 NIHSS Free Text : No gaze deviation Spoke with :?Dr. Weber This consult was conducted in real time using interactive audio and video technology. Patient was informed of the technology being used for this visit and agreed to proceed. Patient located in hospital and provider located at home/office setting. Patient is being evaluated for possible acute neurologic impairment and high probability of imminent or life - threatening deterioration.I spent total of 35 minutes providing care to this patient, including time for face to face visit via telemedicine, review of medical records, imaging studies and discussion of findings with providers, the patient and / or family. Dr Lalitha Munoz [facility] For Inpatient follow-up with [facility] physician please call [facility] at . As we are not an outpatient service for any post hospital discharge needs please contact the hospital for assistance. If you have any questions for the [facility] physicians or need to reconsult for clinical or diagnostic changes please contact us via [facility] at . Signature :?Lalitha Munoz
[2025-03-05] MEDS: DIAZEPAM INJ 5 MG/ML VIAL 2 ML IVP (23:51)
[2025-03-06] VITALS (34 sets, daily range): BP systolic 76–195; BP diastolic 43–112; PULSE 70–119; RESP 10–21; TEMP 36.4–37; O2SAT 96–100; BMI 26.8
[2025-03-06] MEDS: levETIRAcetam INJ 100 MG/ML VIAL 5ML 2500 MG IVP (00:16)
--- NOTE | 2025-03-06 00:23 | PD.RESHP ---
Documentation for date of: 03/06/25 HPI History of Present Illness Chief complaint: Recurrent seizures History of present illness: 54 y/o F with PMHx significant for seizures, developmental delay, hypertension presents with chief complaint of increased seizure activity. At baseline patient is able to verbalize needs, very independent with ADLs per caregiver. Patient typically has 3 breakthrough seizures per month, however the past week she has had increasing seizure activity with decreased cognitive functioning between seizures, grown progressively worse. Prior to admission today patient had 4 witnessed seizures at home, greater than 10 witnessed seizures in the ED. Patient had absolutely no return to baseline between seizures today or yesterday. Patient follows with Dr. Isbell. On exam patient able to grimace, withdraw extremities from noxious stimuli. Patient multiple witnessed seizures, presenting has flexion of all extremities and grimacing, followed by diffuse myoclonic jerking, lasting under 30 seconds. Patient family and caregiver at bedside deny any recent complaints of fever, chills, shortness of breath, chest pain, nausea, vomiting, dysuria. ED COURSE: Labs significant for: WBC 10.9, lactic acid 1.9. Urinalysis showing positive nitrates, 28 RBCs, fungoid 87 WBCs. Urine cultures pending. Imaging significant for: Head CT unremarkable. Patient received total 50 mg midazolam over 4 doses in the ED, 3.5 g Keppra, 1 g Rocephin. Teleneurologist consulted, recommend monitoring with continuous EEG following weight-based Keppra dosage. If seizures continue to breakthrough, patient required intubation and sedation. PMH: Seizures, developed a delay, hypertension PSH: None SH: Denies alcohol, tobacco, illicit drug use. Allergies:?[place] Medications: Keppra 100 mg twice daily, lamotrigine 100 mg, rest of med rec's pending Review of Systems Review of Systems Systems Reviewed: All systems reviewed, normal except as documented Past Medical History Past Medical History Comments PMH COMMENT: PMH: Seizures, developed a delay, hypertension PSH: None SH: Denies alcohol, tobacco, illicit drug use. Allergies:?[place] Medications: Keppra 100 mg twice daily, lamotrigine 100 mg, rest of med rec's pending Exam Vital Signs Temp Pulse Resp BP Pulse Ox O2 Del Method O2 Flow Rate 97.6 F 93 18 114/79 100 Oxy Mask 03/05/25 19:48 03/05/25 23:31 03/05/25 23:41 03/05/25 23:31 03/05/25 23:41 03/05/25 23:31 03/05/25 23:41 Narrative Exam PE: Gen: Well-developed and well-nourished. HEENT: NCAT, PERRLA, EOMI, MMM, anicteric conjunctivae. CVS: normal S1 and S2. RRR. No M/R/G. Resp: CTA B/L. No rhonchi, rales, crackles or wheezing. Abd: soft, non-tender, non-distended. BS+ in all 4 quadrants. MSK: Good ROM in BUE & BLE. No rash. Trace edema. Neuro: Grimaces and withdraws extremities from noxious stimuli. Otherwise unresponsive, does not follow commands. Multiple seizures witnessed with flexion of lower extremities, followed by myoclonic jerking. Results: Labs 03/05/25 15:00 03/05/25 15:00 Labs: Short CBC 03/05/25 Range/Units 15:00 WBC 10.9 (3.6-11.0) Thou/mm3 Hgb 12.9 (12.0-16.0) g/dL Hct 38.9 (36.0-46.0) % Plt Count 278 (140-440) Thou/mm3 BMP 03/05/25 15:00 Sodium 141 Potassium 3.2 L Chloride 106 Carbon Dioxide 22.2 BUN 9 Creatinine 0.8 Glucose 111 H Calcium 9.4 Liver Function 03/05/25 Range/Units 15:00 Total Bilirubin 0.4 (0.3-1.2) mg/dL AST 29 (0-34) U/L ALT 44 (10-49) U/L Alkaline Phosphatase 124 H (46-116) U/L Albumin 4.4 (3.5-5.0) gm/dL Urine 03/05/25 Range/Units 16:34 Urine Color Yellow (Lt Yel-Yel) Urine Clarity Turbid A (Clear/Hazy) Urine pH 8.0 H (5.0-7.0) Ur Specific [place] 1.020 (1.001-1.035) Urine Protein 2+ A (Neg - Trace) Urine Glucose (UA) Negative (Negative) ABG Interpretation ABG results: 03/05/25 15:00 VBG pH 7.41 VBG pCO2 39 VBG pO2 65 H VBG Base Excess 0 Quality Measures Quality Measures VTE prophylaxis and none Medications Home Medications and Allergies Home Medications ?Medication ?Instructions ?Recorded ?Confirmed ?Type docusate sodium 250 mg capsule 250 mg PO BID 08/09/19 03/06/25 History sertraline 100 mg tablet 150 mg PO QDAY 08/09/19 03/06/25 History levetiracetam 500 mg 500 mg PO BID 05/10/22 03/06/25 History tablet,extended release 24 hr loratadine 10 mg tablet 10 mg PO QDAY 05/10/22 03/06/25 History cenobamate 100 mg tablet (Xcopri) 100 mg PO QDAY 03/06/25 03/06/25 History lamotrigine 100 mg tablet 100 mg PO BID 03/06/25 03/06/25 History medroxyprogesterone 10 mg tablet 10 mg PO QDAY 03/06/25 03/06/25 History (Provera) quetiapine 400 mg tablet,extended 800 mg PO .qhs 03/06/25 03/06/25 History release 24 hr valbenazine 80 mg capsule 80 mg PO QDAY 03/06/25 03/06/25 History (Ingrezza) zonisamide 100 mg capsule 400 mg PO .qhs 03/06/25 03/06/25 History Allergies Allergy/AdvReac Type Severity Reaction Status Date / Time lithium Allergy Severe Hallucinati Verified 11/30/24 07:30 ng Visit Medications Acetaminophen (Acetaminophen Supp 650 Mg Supp) 650 mg MA Q6HR PRN PRN Reason: Fever > 100.4 or pain Stop: 04/04/25 23:33 Enoxaparin Sodium (Enoxaparin Sod Inj 40 Mg/0.4 Ml Syringe) 40 mg SC QDAY [facility] Stop: 03/20/25 08:59 Ceftriaxone Sodium/Dextrose (Rocephin/D5w 1gm Iv Premix) 1 gm in 50 mls @ 100 mls/hr IV DAILY@2100 ALBERTO Stop: 03/13/25 20:59 Ondansetron HCl (Ondansetron Inj 2 Mg/Ml Inj 2 Ml) 4 mg IVP Q6H PRN; Protocol PRN Reason: NAUSEA OR VOMITING Stop: 04/04/25 23:33 Discontinued Medications Diazepam (Diazepam Inj 5 Mg/Ml Vial 2 Ml) 2.5 mg IVP X1 ONE Stop: 03/05/25 22:35 Last Admin: 03/05/25 22:49 Dose: 2.5 mg Diazepam (Diazepam Inj 5 Mg/Ml Vial 2 Ml) 5 mg IVP X1 ONE Stop: 03/05/25 23:43 Last Admin: 03/05/25 23:51 Dose: 5 mg Ceftriaxone Sodium/Dextrose (Rocephin/D5w 1gm Iv Premix) 1 gm in 50 mls @ 100 mls/hr IV X1 ONE Stop: 03/05/25 21:58 Last Infusion: 03/05/25 22:45 Dose: Infused Ceftriaxone Sodium/Dextrose (Rocephin/D5w 1gm Iv Premix) 1 gm in 50 mls @ 100 mls/hr IV QDAY ALBERTO Stop: 03/12/25 23:37 Last Admin: 03/05/25 23:45 Dose: Not Given Levetiracetam (Levetiracetam Inj 100 Mg/Ml Vial 5ml) 1,000 mg IVP X1 ONE Stop: 03/05/25 16:07 Last Admin: 03/05/25 16:13 Dose: 1,000 mg Levetiracetam (Levetiracetam Inj 100 Mg/Ml Vial 5ml) 2,500 mg IVP X1 ONE Stop: 03/05/25 23:21 Last Admin: 03/06/25 00:16 Dose: 2,500 mg Midazolam HCl (Midazolam Inj 1 Mg/Ml Vial 2 Ml) 5 mg IVP X1 ONE Stop: 03/05/25 16:07 Last Admin: 03/05/25 16:12 Dose: 5 mg Midazolam HCl (Midazolam Inj 1 Mg/Ml Vial 2 Ml) 5 mg IVP X1 ONE Stop: 03/05/25 20:02 Last Admin: 03/05/25 20:03 Dose: Not Given Midazolam HCl (Midazolam Inj 1 Mg/Ml Vial 2 Ml) 2.5 mg IVP X1 ONE Stop: 03/05/25 20:04 Last Admin: 03/05/25 20:06 Dose: 2.5 mg Midazolam HCl (Midazolam Inj 1 Mg/Ml Vial 2 Ml) 2.5 mg IVP X1 ONE Stop: 03/05/25 20:29 Last Admin: 03/05/25 20:35 Dose: 2.5 mg Assessment & Plan Plan 54 y/o F with PMHx significant for seizures, developmental delay, hypertension presents with chief complaint of increased seizure activity, admitted for status epilepticus. #Status epilepticus #Seizures Patient history of seizures, at baseline has 3/month. Has had increasing seizure activity over the past week, has had at least a dozen witnessed seizures today, with no return to baseline between. Patient follows Dr. Isbell. Teleneuro consulted, recommended 3.5 g Keppra based on patient's weight, in addition to 15 mg Versed patient received in ED. If patient continues to have breakthrough seizures, will sedate and intubate. ICU made aware of patient. Patient has UTI, possible trigger. - 7.5 mg diazepam - Continuous EEG - Telemonitoring - Resume home meds if patient becomes able to - Seizure precautions - N.p.o. - Treat UTI as below #UTI Patient has UTI based on urinalysis which showed positive nitrates, 28 RBCs, 47 WBCs. Urine cultures pending. Patient unable to express symptoms, however per caregiver patient has not recently complained of fever, chills, nausea, vomiting, dysuria. - Rocephin 1 g IV daily (started 03/05) - Follow urine cultures #Developmental delay #Hypertension Patient history as stated. Has caregiver at home to assist, however patient reportedly very independent with ADL at baseline. Patient currently minimally responsive. Med rec's pending - Continue home meds when appropriate DVT prophylaxis: GI prophylaxis: None Diet: N.p.o. Lines: Peripheral IV Code status: Full code Plan of care discussed with attending Dr. Coronado. Yassine Vargas MD PGY?2 Attending Provider Attestation/Addendum I attest that I was physically present for the evaluation, physical examination, lab and imaging review of the patient with the residents. I discussed the case with the residents and agree with the findings and plans of care as documented above. After examination of the patient and review of the clinical data I feel that this patient needs admission to the hospital for further treatment/evaluation. Malick Coronado MD
--- NOTE | 2025-03-06 00:26 | PC.NURSE ---
provider notififed about seizure activity. per dr. biggs call me if she has another seizure after keppra
--- NOTE | 2025-03-06 00:32 | PC.NURSE ---
provider notified about seizure activity
--- NOTE | 2025-03-06 00:36 | PC.NURSE ---
per sister statement in Japanese translated to Macedonian i believe that the recurrent seizures are related to her care facility. they frequently call me that my sister fell on the floor. thats why she has a lot of bumps of her face, because the facility doesn't take good care of her and let her fall.
--- NOTE | 2025-03-06 00:39 | PC.NURSE ---
pt does have 2 bumps on forehead from previous falls
--- NOTE | 2025-03-06 01:01 | PC.NURSE ---
provider notified about the witness seizure. per provider we are heading to the ed right now
--- NOTE | 2025-03-06 01:10 | PC.NURSE ---
dr. biggs came to bedside to speak to pts sister about care of plan. provider explained the next step of care which would be to sedate and intubate pt becuase meds have not been sufficient enough to stop seizure activity. pts sister agreeded to intubate and sedate pt
[2025-03-06] MEDS: ROCURONIUM INJ 10 MG/ML VIAL 10 ML 70 MG IV (01:30)
[2025-03-06] MEDS: ETOMIDATE INJ 2 MG/ML VIAL 10 ML 10 MG IVP (01:30)
--- NOTE | 2025-03-06 01:33 | XR_ITS ---
Examination: AP chest single view TECHNIQUE: AP portable upright chest single view Date and time: March 06, 2025, 0153 hours Comparison May 29, 2024 INDICATIONS: Seizures today, hypoxic respiratory failure postintubation FINDINGS: Normal heart size No aspiration pneumonia. Endotracheal tube tip is 3.3 cm above Gaby Normal heart size Orogastric tube sidehole is at the GE junction No free air IMPRESSION: Negative for aspiration pneumonia Advance the orogastric tube 5 cm
--- NOTE | 2025-03-06 01:46 | PD.RESPROC ---
PROCEDURES: Procedure Date / Time 03/06/25 0136 Procedural Time Out Time out performed: Yes Intubation Indication(s): inability to protect airway and other (Seizure) Informed consent obtained: procedure done urgently Time out done, and the following verified: correct patient, side and site, procedure, patient position and implants and/or equipment Sedative: etomidate Mg given: 10 Paralytic: rocuronium Mg given: 70 Laryngoscope: Yolie ET tube size: 7.5 ET tube uncuffed: Yes Tube secured depth (cm): 23 Tube secured location: lips Tube placement confirmation: visualized tube passing through cords, equal breath sounds bilaterally, no breath sounds over epigastrium and confirmation by capnometry Patient tolerated procedure: well EBL(ml): 0 Intubation complications: none
[2025-03-06] MEDS: MIDAZOLAM/NS 100 MG IVPB 100 MG/100 ML BAG IV (01:48)
[2025-03-06] MEDS: PROPOFOL 1,000 MG IVPB 1,000 MG/100 ML VIAL 1.837 MG IV (01:48)
--- NOTE | 2025-03-06 01:49 | PD.RESCONSUL ---
HPI Data of Consult Requesting Physician: Malick Coronado MD Admitting Provider: Malick Coronado MD Attending Provider: Malick Coronado MD Primary Care Provider: Cherelle Butts NP Consult Narrative History of present illness: The patient is a 49-year-old female with significant past medical history of seizure disorder, developmental delay, hypertension who presented with chief complaint of increased seizure activity for about 1 week. The history was obtained from chart review as patient's mentation was decreased during my evaluation. The patient typically had 3 breakthrough seizure every month, but for the past week or seizure activity has increased in frequency, and her cognitive function has decreased in between seizures. At baseline, sees independent with ADLs, and able to verbalize her basic needs. On the day of presentation, the patient had about 4 witnessed seizure at home, and about 15 witnessed seizure each lasting less than 30 seconds in the ED, and was resistant to multiple doses of midazolam and loading dose of Keppra 3.5 g. She follows up with Dr Isbell as an outpatient. As per family and caregiver, she did not had any fever or chills, SOB, chest pain, nausea or vomiting or dysuria. In the ED, initially her vitals were significant for BP 143/90, pulse 130, RR 14, saturating 95% on room air. Labs revealed CBC WNL, chemistry panel revealed potassium 3.2, sodium 141, BUN 9, creatinine 0.8, blood sugar 111, UA revealed turbid urine, pH 8.0, protein 2+, blood 1+, nitrite positive, leukocyte esterase positive, RBC 28, WBC 487, U tox positive for benzodiazepine, head CT negative for acute hemorrhage, mass effect or midline shift, chest x-ray was suspicious for right middle lobe pneumonia. The patient received diazepam 7.5 Mg, and midazolam 10 Mg IV, and was given Keppra 1 g and 2.5 g, ceftriaxone 1 g IV x 1, teleneurology consulted, recommended continuous EEG monitoring and loading dose of Keppra, and later sedated, intubated and mechanically ventilated and admitted to ICU for further management of refractory status epilepticus. PMH: As mentioned above SHX: None Social history: Denies alcohol, tobacco or illicit drug use Allergies: [place] Medications: Keppra 500 Mg twice daily, lamotrigine 100 Mg, further medication reconciliation pending. cc:: cc: Malick Coronado MD Review of Systems Review of Systems Systems Reviewed: All systems reviewed, normal except as documented (Above from chart review) Exam Vital Signs Temp Pulse Resp BP Pulse Ox O2 Del Method O2 Flow Rate 98.2 F 90 19 136/82 H 100 Oxy Mask 13 03/06/25 00:21 03/06/25 00:21 03/06/25 00:21 03/06/25 00:21 03/06/25 00:21 03/06/25 00:21 03/06/25 00:21 Narrative Exam General: No acute distress, Alert and Oriented x 0 HEENT: Moist mucous membranes, oropharynx clear Neck: Supple, No masses, No JVD CVS: S1S2 Regular rate and rhythm, No murmurs, rubs or gallops Lungs: Clear to auscultation with no accessory use, no wheeze no rhonchi Abd: Soft, NT/ND, +BS, no organomegaly Ext: 1+ peripheral edema, warm and well perfused Neuro: Grimaces on noxious stimuli, multiple seizure episodes with flexion of upper and lower limbs, followed by myoclonic jerk. Skin: No rash Psych: Unable to obtain Results Labs 03/06/25 05:00 03/06/25 05:58 Labs: Short CBC 03/05/25 Range/Units 15:00 WBC 10.9 (3.6-11.0) Thou/mm3 Hgb 12.9 (12.0-16.0) g/dL Hct 38.9 (36.0-46.0) % Plt Count 278 (140-440) Thou/mm3 BMP 03/05/25 15:00 Sodium 141 Potassium 3.2 L Chloride 106 Carbon Dioxide 22.2 BUN 9 Creatinine 0.8 Glucose 111 H Calcium 9.4 Liver Function 03/05/25 Range/Units 15:00 Total Bilirubin 0.4 (0.3-1.2) mg/dL AST 29 (0-34) U/L ALT 44 (10-49) U/L Alkaline Phosphatase 124 H (46-116) U/L Albumin 4.4 (3.5-5.0) gm/dL Urine 03/05/25 Range/Units 16:34 Urine Color Yellow (Lt Yel-Yel) Urine Clarity Turbid A (Clear/Hazy) Urine pH 8.0 H (5.0-7.0) Ur Specific [place] 1.020 (1.001-1.035) Urine Protein 2+ A (Neg - Trace) Urine Glucose (UA) Negative (Negative) ABG Interpretation ABG results: 03/05/25 15:00 VBG pH 7.41 VBG pCO2 39 VBG pO2 65 H VBG Base Excess 0 Quality Measures Quality Measures VTE prophylaxis and none Medications Home Medications and Allergies Home Medications ?Medication ?Instructions ?Recorded ?Confirmed ?Type docusate sodium 250 mg capsule 250 mg PO BID 08/09/19 03/06/25 History sertraline 100 mg tablet 150 mg PO QDAY 08/09/19 03/06/25 History levetiracetam 500 mg 500 mg PO BID 05/10/22 03/06/25 History tablet,extended release 24 hr loratadine 10 mg tablet 10 mg PO QDAY 05/10/22 03/06/25 History cenobamate 100 mg tablet (Xcopri) 100 mg PO QDAY 03/06/25 03/06/25 History lamotrigine 100 mg tablet 100 mg PO BID 03/06/25 03/06/25 History medroxyprogesterone 10 mg tablet 10 mg PO QDAY 03/06/25 03/06/25 History (Provera) quetiapine 400 mg tablet,extended 800 mg PO .qhs 03/06/25 03/06/25 History release 24 hr valbenazine 80 mg capsule 80 mg PO QDAY 03/06/25 03/06/25 History (Ingrezza) zonisamide 100 mg capsule 400 mg PO .qhs 03/06/25 03/06/25 History Allergies Allergy/AdvReac Type Severity Reaction Status Date / Time lithium Allergy Severe Hallucinati Verified 11/30/24 07:30 ng Visit Medications Acetaminophen (Acetaminophen Supp 650 Mg Supp) 650 mg [place] Q6HR PRN PRN Reason: Fever > 100.4 or pain Stop: 04/04/25 23:33 Enoxaparin Sodium (Enoxaparin Sod Inj 40 Mg/0.4 Ml Syringe) 40 mg SC QDAY ALBERTO Stop: 03/20/25 08:59 Ceftriaxone Sodium/Dextrose (Rocephin/D5w 1gm Iv Premix) 1 gm in 50 mls @ 100 mls/hr IV DAILY@2100 [facility] Stop: 03/13/25 20:59 Propofol (Diprivan Ivpb) 1,000 mg in 100 mls @ 1.837 mls/hr IV .Q24H PRN; Protocol PRN Reason: PER PROTOCOL Stop: 04/05/25 01:38 Midazolam HCl (Versed Pf Inj In Ns Premix) 100 mg in 100 mls @ 1 mls/hr IV .Q24H PRN; Protocol PRN Reason: PER PROTOCOL Stop: 03/11/25 01:38 Norepinephrine Bitartrate (Levophed In Ns 16mg/250ml) 16 mg in 250 mls @ 2.87 mls/hr IV .Q24H PRN; Protocol PRN Reason: PER PROTOCOL Stop: 04/05/25 01:40 Ondansetron HCl (Ondansetron Inj 2 Mg/Ml Inj 2 Ml) 4 mg IVP Q6H PRN; Protocol PRN Reason: NAUSEA OR VOMITING Stop: 04/04/25 23:33 Discontinued Medications Diazepam (Diazepam Inj 5 Mg/Ml Vial 2 Ml) 2.5 mg IVP X1 ONE Stop: 03/05/25 22:35 Last Admin: 03/05/25 22:49 Dose: 2.5 mg Diazepam (Diazepam Inj 5 Mg/Ml Vial 2 Ml) 5 mg IVP X1 ONE Stop: 03/05/25 23:43 Last Admin: 03/05/25 23:51 Dose: 5 mg Etomidate (Etomidate Inj 2 Mg/Ml Vial 10 Ml) 10 mg IVP X1 ONE Stop: 03/06/25 01:21 Last Admin: 03/06/25 01:30 Dose: 10 mg Ceftriaxone Sodium/Dextrose (Rocephin/D5w 1gm Iv Premix) 1 gm in 50 mls @ 100 mls/hr IV X1 ONE Stop: 03/05/25 21:58 Last Infusion: 03/05/25 22:45 Dose: Infused Ceftriaxone Sodium/Dextrose (Rocephin/D5w 1gm Iv Premix) 1 gm in 50 mls @ 100 mls/hr IV QDAY ALBERTO Stop: 03/12/25 23:37 Last Admin: 03/05/25 23:45 Dose: Not Given Levetiracetam (Levetiracetam Inj 100 Mg/Ml Vial 5ml) 1,000 mg IVP X1 ONE Stop: 03/05/25 16:07 Last Admin: 03/05/25 16:13 Dose: 1,000 mg Levetiracetam (Levetiracetam Inj 100 Mg/Ml Vial 5ml) 2,500 mg IVP X1 ONE Stop: 03/05/25 23:21 Last Admin: 03/06/25 00:16 Dose: 2,500 mg Midazolam HCl (Midazolam Inj 1 Mg/Ml Vial 2 Ml) 5 mg IVP X1 ONE Stop: 03/05/25 16:07 Last Admin: 03/05/25 16:12 Dose: 5 mg Midazolam HCl (Midazolam Inj 1 Mg/Ml Vial 2 Ml) 5 mg IVP X1 ONE Stop: 03/05/25 20:02 Last Admin: 03/05/25 20:03 Dose: Not Given Midazolam HCl (Midazolam Inj 1 Mg/Ml Vial 2 Ml) 2.5 mg IVP X1 ONE Stop: 03/05/25 20:04 Last Admin: 03/05/25 20:06 Dose: 2.5 mg Midazolam HCl (Midazolam Inj 1 Mg/Ml Vial 2 Ml) 2.5 mg IVP X1 ONE Stop: 03/05/25 20:29 Last Admin: 03/05/25 20:35 Dose: 2.5 mg Rocuronium [place] (Rocuronium Inj 10 Mg/Ml Vial 10 Ml) 7 mg IVP X1 ONE Stop: 03/06/25 01:21 Last Admin: 03/06/25 01:38 Dose: Not Given Rocuronium [place] (Rocuronium Inj 10 Mg/Ml Vial 10 Ml) 70 mg IV X1 ONE Stop: 03/06/25 01:26 Last Admin: 03/06/25 01:30 Dose: 70 mg Assessment & Plan Plan The patient is a 49-year-old female with significant past medical history of seizure disorder, developmental delay, hypertension who presented with chief complaint of increased seizure activity for about 1 week. The history was obtained from chart review as patient's mentation was decreased during my evaluation. Later sedated, intubated and mechanically ventilated and admitted to ICU for further management of refractory status epilepticus. Neuro: #Acute postictal encephalopathy 2/ #Refractory status epilepticus Likely in the setting of UTI Patient has a history of seizure disorder, has been having about 3 episodes of breakthrough seizure every month even after medication use, increased in frequency of seizure for about a week ago, and presented to ED after having 4 episodes of seizure at home, and in the ED had about 15 episodes of seizure, resistant to multiple doses of midazolam, diazepam and loading dose of Keppra, and never regained her baseline consciousness in between seizures. UA was positive for UTI -The patient received diazepam 7.5 Mg, and midazolam 10 Mg IV, and was given Keppra 1 g and 2.5 g, ceftriaxone 1 g IV x 1 -Intubated and mechanically ventilated -Sedated with a RASS goal of -5, with midazolam and propofol -Monitor labs, including CBC, CMP and electrolytes CVS: #History of hypertension - Currently blood pressure is stable - Continue to monitor blood pressure Pulmonology: - Sedated, intubated and mechanically ventilated to protect airway GI: - No active issue - On GI prophylaxis with pantoprazole 40 Mg IV daily Renal: #Hypokalemia Presented with potassium of 3.2 -Repleted with 20 mEq of KCl Endocrinology: - No active issue ID: #[id number] UA revealed turbid urine, pH 8.0, protein 2+, blood 1+, nitrite positive, leukocyte esterase positive, RBC 28, WBC 487 -Started on ceftriaxone 1 g IV every 24 hour MSK: - No active issue Psych: -No active issue Health maintenance: Dispo: Patient admitted to ICU for further management of resistant status epilepticus DVT prophylaxis: Enoxaparin Diet: N.p.o. Lines: Peripheral lines CODE STATUS: Full code The patient's management plan was discussed with my attending physician MD Kole Dean MD, PGY3 Attending Provider Attestation/Addendum I attest that I was physically present for the evaluation, physical examination, lab and imaging review of the patient with the residents. I discussed the case with the residents and agree with the findings and plans of care as documented above. Patient is a 54 years old female with past medical history of seizures, supplemental daily, hypertension who presented to the ED with complaint of seizure activity. As per the family at bedside, patient is able to verbalize her needs at baseline, and is independent with her ADLs. She has been having around 3 breakthrough seizures every month, however she has been having increasing seizure activity for the past week with confusion in between and has been getting progressively worse. Today, she had 4 witnessed episodes at home, had more than 10 witnessed episodes in the ED with no return to her baseline. At bedside, patient is unresponsive to self only verbal commands, only withdraws and grimaces with pain. Had even during history taking witnessed seizures lasting about 5 seconds, diffuse myoclonic jerking. Family denied any fever, chills, shortness of breath, nausea, vomiting at home. In the ED, WBC count was 10.9, lactic acid 1.9. Urinalysis showed 87 WBCs, [address] was obtained, was negative for acute hemorrhage, mass effect or midline shift. Patient received multiple doses of midazolam in the ED. Teleneurology was consulted, who recommended total of 3.5 g of Keppra. Recommended to admit the patient with continuous EEG monitoring. Patient was initially admitted to the telemetry with loading dose of Keppra, as needed midazolam and continuous EEG. But patient continued to have further episode of seizures, decision was made to intubate the patient as recommended by teleneurology and start her on sedation. Patient was intubated in the ED with supervision by ED physician and transferred to ICU for further management. Started on midazolam and propofol gtt. for. Sedation. We will resume her home medications in AM. Patient was hypertensive in the ED, blood pressure started improving after sedation. She was noted to have potassium of 3.2, repleted accordingly. Started on Rocephin 1 g daily for UTI. , Malick Coronado MD
--- NOTE | 2025-03-06 01:57 | PC.NURSE ---
intuabtion and og placement confirmed by dr. jang
[2025-03-06] MEDS: POTASSIUM CHLORIDE 10% 20 MEQ/15 ML UDC NG (03:05)
[2025-03-06 03:14] LABS: Base Excess 0 (-3-3); HCO3 24 mEq/L (20-26); Inspired Oxygen, FIO2 40 %; O2 Saturation 98 % (91-98); PCO2 38 mmHg (32.0-48.0); PO2 165 mmHg (83-108); pH, Arterial 7.42 (7.35-7.45)
[2025-03-06 03:15] LABS: Allen Test Performed/OK; Puncture Site Right Radial
[2025-03-06 06:37] LABS: Basophils # (Auto) 0.1 Thou/mm3 (0.0-0.2); Basophils % (Auto) 0 % (0-2.5); Eosinophils # (Auto) 1.4 Thou/mm3 (0.0-0.5); Eosinophils % (Auto) 10 % (0-10); Hematocrit 39.1 % (36.0-46.0); Hemoglobin 13.3 g/dL (12.0-16.0); Immature Granulocytes Auto 0.05 Thou/mm3 (0.00-0.00); Lymphocytes # (Auto) 1.4 Thou/mm3 (1.0-4.8); Lymphocytes % (Auto) 9 % (10-50); Mean Corpuscular HGB Conc 34.0 g/dl (31.0-37.0); Mean Corpuscular Hemoglobin 30.9 pg (25.0-35.0); Mean Corpuscular Volume 91 fL (80-100); Monocytes # (Auto) 1.1 Thou/mm3 (0.0-0.8); Monocytes % (Auto) 8 % (0-12); Neutrophils # (Auto) 10.6 Thou/mm3 (1.8-7.7); Neutrophils % (Auto) 73 % (37-80); Nucleated Red Blood Cell # 0.00 Thou/mm3 (0.00-0.00); Nucleated Red Blood Cell % 0 /100 WBC (0); Platelet Count 256 Thou/mm3 (140-440); RDW Standard Deviation 43.2 fL (36.4-46.3); Red Blood Count 4.31 Miln/mm3 (4.00-5.20); White Blood Count 14.7 Thou/mm3 (3.6-11.0)
[2025-03-06 06:46] LABS: Alanine Aminotransferase 46 U/L (10-49); Albumin, Serum 4.1 gm/dL (3.5-5.0); Albumin/Globulin Ratio 1.6 (1.2-2.2); Alkaline Phosphatase 120 U/L (46-116); Anion Gap 14 (7-16); Aspartate Amino Transferase 34 U/L (0-34); BUN/Creatinine Ratio 11 Ratio (12-20); Bilirubin,Total 0.5 mg/dL (0.3-1.2); Blood Urea Nitrogen 8 mg/dL (9-23); Calcium 9.3 mg/dL (8.3-10.6); Calcium (Corrected) 9.3 mg/dL (8.5-10.1); Carbon Dioxide 22.6 mMol/L (20.0-31.0); Cardiac Risk Estimate 1.9 RATIO (3.7-5.6); Chloride 106 mMol/L (98-107); Cholesterol 150 mg/dL (132-200); Creatinine (Component) 0.7 mg/dL (0.6-1.3); Globulin 2.6 gm/dL (2.3-3.5); Glucose 102 mg/dL (74-106); HDL Cholesterol 79 mg/dL (40-60); LDL Cholesterol,Calculated 56 mg/dL (0-130); Magnesium 1.6 mg/dL (1.6-2.6); Osmolality,Calculated 283 (275-295); Phosphorous 3.4 mg/dL (2.4-5.1); Potassium 3.1 mMol/L (3.4-5.1); Sodium 143 mMol/L (136-145); Thyroid Stimulating Hormone 2.55 uIU/mL (0.55-4.78); Total Protein 6.7 gm/dL (5.7-8.2); Triglycerides 77 mg/dL (30-150); eGFR > 60 See Note
[2025-03-06 07:14] LABS: INR 1.1 (0.9-1.3); Partial Thromboplastin Time 27.1 Seconds (22.0-36.0); Prothrombin Time 11.7 Seconds (9.0-12.2)
[2025-03-06] MEDS: PROPOFOL 1,000 MG IVPB 1,000 MG/100 ML VIAL 18.371 MG IV ×4 (07:16→22:30)
--- NOTE | 2025-03-06 08:06 | PC.NURSE ---
Pt. on continuous EEG, patient repositioned at 0801 and lab draw occurred simultaneously. External stimulation from staff ended at 0809.
[2025-03-06] MEDS: POTASSIUM CHL 10 mEq IVPB 10 MEQ/100 ML BAG 100 MEQ IV ×4 (08:14→11:45)
[2025-03-06 08:27] LABS: Lactate (Lactic Acid) 1.9 mMol/L (0.4-2.0)
[2025-03-06] MEDS: levETIRAcetam INJ 100 MG/ML VIAL 5ML 1000 MG IVP ×2 (08:47→21:30)
[2025-03-06] MEDS: ENOXAPARIN SOD INJ 40 MG/0.4 ML SYRINGE SC (08:47)
--- NOTE | 2025-03-06 10:09 | PC.NURSE ---
Patients home medications Xcopri and Ingrezza are unavailable per pharmacy. Called the caregiver x3 and was unable to get through. Patients POC was notified and stated that they will atempt to contact group home and if unable will retrieve the medication and bring it to the hospital personally. notified
--- NOTE | 2025-03-06 11:02 | PC.NURSE ---
Patient on continuous EEG and was repositioned. Repositioning occurred from 1020 until 1022.
--- NOTE | 2025-03-06 11:53 | PD.RESPRO ---
Documentation for date of: 03/06/25 Subjective Subjective Interval history: Patient is a 49-year-old female with significant past medical history of seizure disorder, developmental delay, hypertension who presented with chief complaint of increased seizure activity for about 1 week. The history was obtained from chart review as patient's mentation was decreased during my evaluation. The patient typically had 3 breakthrough seizure every month, but for the past week or seizure activity has increased in frequency, and her cognitive function has decreased in between seizures. At baseline, sees independent with ADLs, and able to verbalize her basic needs. On the day of presentation, the patient had about 4 witnessed seizure at home, and about 15 witnessed seizure each lasting less than 30 seconds in the ED, and was resistant to multiple doses of midazolam and loading dose of Keppra 3.5 g. She follows up with Dr Isbell as an outpatient. As per family and caregiver, she did not had any fever or chills, SOB, chest pain, nausea or vomiting or dysuria. In the ED, initially her vitals were significant for BP 143/90, pulse 130, RR 14, saturating 95% on room air. Labs revealed CBC WNL, chemistry panel revealed potassium 3.2, sodium 141, BUN 9, creatinine 0.8, blood sugar 111, UA revealed turbid urine, pH 8.0, protein 2+, blood 1+, nitrite positive, leukocyte esterase positive, RBC 28, WBC 487, U tox positive for benzodiazepine, head CT negative for acute hemorrhage, mass effect or midline shift, chest x-ray was suspicious for right middle lobe pneumonia. 03/07/2025: No new seizure events since the patient came up to the ICU this morning. Patient remains on continuous EEG monitoring at a RASS of -4. Patient responds with non-specific extremity movements to touch and localizes to pain. No myoclonic jerks noted. Midazolam and propofol drips were maxed out, midazolam was turned off and the patient remains on propofol. Requested TeleNeuro rounding on the patient this morning and was recommended to continue with the current doses of anti-epileptics including Keppra, cenobamate, lamotrigine, and zonisamide. EEG was paused and submitted to obtain report of data gathered so far but TeleNeurologist was unable to see in system. Will keep the patient sedated on propofol with RASS -4 overnight then wean to RASS 0 in the morning for SAT/SBT in preparation for extubation. Exam Vital Signs Temp Pulse Resp BP Pulse Ox O2 Del Method O2 Flow Rate 98.6 F 70 21 H 94/61 100 Mechanical Ventilation 13 03/06/25 08:00 03/06/25 11:01 03/06/25 02:39 03/06/25 11:01 03/06/25 11:01 03/06/25 08:00 03/06/25 00:21 FiO2 30 03/06/25 10:30 Narrative Exam Physical Exam General: Intubated and sedated HEENT: Normocephalic, atraumatic, mucous membranes moist. Pupils equal and reactive to light. Heart: Regular rate and rhythm, normal S1 and S2, no murmurs. Lungs: Clear to auscultation with no wheezing or crackles. Abdomen: Soft, nondistended, positive bowel sounds. Neurologic: Unable to assess as intubated and sedated but withdraws to pain and has non-specific extremity movement to touch. No myoclonic jerks noted. Extremities: No edema. Minor healing skin abrasion left knee. Skin: No rash or ecchymoses. Objective Labs 03/07/25 05:19 03/07/25 05:19 Labs: Laboratory Results - last 24 hr 03/05/25 03/05/25 03/06/25 15:00 16:34 03:09 WBC 10.9 RBC 4.31 Hgb 12.9 Hct 38.9 MCV 90 MCH 29.9 MCHC 33.2 RDW Std Deviation 42.9 Plt Count 278 Neut % (Auto) 80 Lymph % (Auto) 7 L [place] % (Auto) 6 Eos % (Auto) 6 Baso % (Auto) 1 Neut # (Auto) 8.8 H Lymph # (Auto) 0.8 L [place] # (Auto) 0.6 Eos # (Auto) 0.7 H Baso # (Auto) 0.1 Immature Gran # (Auto) 0.04 H Absolute Nucleated RBC 0.00 Immature Gran % 0 Nucleated RBC % 0 PT INR APTT Puncture Site Right Radial ABG pH 7.42 ABG pCO2 38 ABG pO2 165 H ABG HCO3 24 ABG O2 Saturation 98 ABG Base Excess 0 VBG pH 7.41 VBG pCO2 39 VBG pO2 65 H VBG O2 Sat (Mega) 93 L VBG Base Excess 0 FiO2 40 Sodium 141 Potassium 3.2 L Chloride 106 Carbon Dioxide 22.2 Anion Gap 13 BUN 9 Creatinine 0.8 Estim Creat Clear Calc Not Performed. eGFR > 60 BUN/Creatinine Ratio 11 L Glucose 111 H Calculated Osmolality 280 Lactic Acid 1.9 Calcium 9.4 Corrected Calcium 9.4 Phosphorus Magnesium Total Bilirubin 0.4 AST 29 ALT 44 Alkaline Phosphatase 124 H Total Protein 7.1 Albumin 4.4 Globulin 2.7 Albumin/Globulin Ratio 1.6 Triglycerides Cholesterol LDL Cholesterol, Calc HDL Cholesterol Cholesterol/HDL Ratio TSH Ur Collection Type Catheter Urine Color Yellow Urine Clarity Turbid A Urine pH 8.0 H Ur Specific [place] 1.020 Urine Protein 2+ A Urine Glucose (UA) Negative Urine Ketones Trace Urine Blood 1+ A Urine Nitrite Positive Urine Bilirubin Negative Urine Urobilinogen (Auto) 2.0 Ur Leukocyte Esterase Positive Urine RBC 28 H Urine WBC 487 H Ur Squamous Epith Cells 0 Urine Bacteria None Ur Culture Indicated? Yes Urine Opiates Screen Negative Urine Fentanyl Screen Negative Ur Barbiturates Screen Negative U Amphetamin/Meth Scrn Negative U Benzodiazepines Scrn Positive A U Cocaine Metab Screen Negative U Marijuana (THC) Screen Negative 03/06/25 03/06/25 03/06/25 05:00 05:58 08:10 WBC 14.7 H RBC 4.31 Hgb 13.3 Hct 39.1 MCV 91 MCH 30.9 MCHC 34.0 RDW Std Deviation 43.2 Plt Count 256 Neut % (Auto) 73 Lymph % (Auto) 9 L [place] % (Auto) 8 Eos % (Auto) 10 Baso % (Auto) 0 Neut # (Auto) 10.6 H Lymph # (Auto) 1.4 [place] # (Auto) 1.1 H Eos # (Auto) 1.4 H Baso # (Auto) 0.1 Immature Gran # (Auto) 0.05 H Absolute Nucleated RBC 0.00 Immature Gran % 0 Nucleated RBC % 0 PT 11.7 INR 1.1 APTT 27.1 Puncture Site ABG pH ABG pCO2 ABG pO2 ABG HCO3 ABG O2 Saturation ABG Base Excess VBG pH VBG pCO2 VBG pO2 VBG O2 Sat (Mega) VBG Base Excess FiO2 Sodium 143 Potassium 3.1 L Chloride 106 Carbon Dioxide 22.6 Anion Gap 14 BUN 8 L Creatinine 0.7 Estim Creat Clear Calc Not Performed. eGFR > 60 BUN/Creatinine Ratio 11 L Glucose 102 Calculated Osmolality 283 Lactic Acid 1.9 Calcium 9.3 Corrected Calcium 9.3 Phosphorus 3.4 Magnesium 1.6 Total Bilirubin 0.5 AST 34 ALT 46 Alkaline Phosphatase 120 H Total Protein 6.7 Albumin 4.1 Globulin 2.6 Albumin/Globulin Ratio 1.6 Triglycerides 77 Cholesterol 150 LDL Cholesterol, Calc 56 HDL Cholesterol 79 H Cholesterol/HDL Ratio 1.9 L TSH 2.55 Ur Collection Type Urine Color Urine Clarity Urine pH Ur Specific [place] Urine Protein Urine Glucose (UA) Urine Ketones Urine Blood Urine Nitrite Urine Bilirubin Urine Urobilinogen (Auto) Ur Leukocyte Esterase Urine RBC Urine WBC Ur Squamous Epith Cells Urine Bacteria Ur Culture Indicated? Urine Opiates Screen Urine Fentanyl Screen Ur Barbiturates Screen U Amphetamin/Meth Scrn U Benzodiazepines Scrn U Cocaine Metab Screen U Marijuana (THC) Screen ABG Interpretation ABG results: 03/05/25 03/06/25 15:00 03:09 ABG pH 7.42 ABG pCO2 38 ABG pO2 165 H ABG HCO3 24 ABG O2 Saturation 98 ABG Base Excess 0 VBG pH 7.41 VBG pCO2 39 VBG pO2 65 H VBG Base Excess 0 Quality Measures Quality Measures VTE prophylaxis and none Assessment & Plan Assessment Current Active Medications: Generic Name Dose Route Start Last Admin Trade Name Freq PRN Reason Stop Dose Admin Acetaminophen 650 mg 03/05/25 23:34 Acetaminophen Supp 650 Mg Supp TX 04/04/25 23:33 Q6HR PRN Fever > 100.4 or pain Enoxaparin Sodium 40 mg 03/06/25 09:00 03/06/25 08:47 Enoxaparin Sod Inj 40 Mg/0.4 Ml Syringe SC 03/20/25 08:59 40 mg QDAY ALBERTO Administration Ceftriaxone Sodium/Dextrose 1 gm in 50 mls @ 100 mls/hr 03/06/25 21:00 Rocephin/D5w 1gm Iv Premix IV 03/13/25 20:59 DAILY@2100 ALBERTO Propofol 1,000 mg in 100 mls @ 1.837 mls/hr 03/06/25 01:39 03/06/25 11:00 Diprivan Ivpb IV 04/05/25 01:38 50 mcg/kg/min .Q24H PRN 18.371 mls/hr PER PROTOCOL Titration Protocol 5 MCG/KG/MIN Midazolam HCl 100 mg in 100 mls @ 1 mls/hr 03/06/25 01:39 03/06/25 08:37 Versed Pf Inj In Ns Premix IV 03/11/25 01:38 0 mg/hr .Q24H PRN 0 mls/hr PER PROTOCOL Titration Protocol 1 MG/HR Norepinephrine Bitartrate 16 mg in 250 mls @ 2.87 mls/hr 03/06/25 01:41 Levophed In Ns 16mg/250ml IV 04/05/25 01:40 .Q24H PRN PER PROTOCOL Protocol 0.05 MCG/KG/MIN Lamotrigine 100 mg 03/06/25 09:00 03/06/25 09:54 Lamotrigine 100 Mg Tablet PO 04/05/25 08:59 100 mg BID ALBERTO Administration Levetiracetam 1,000 mg 03/06/25 09:00 03/06/25 08:47 Levetiracetam Inj 100 Mg/Ml Vial 5ml IVP 04/05/25 08:59 1,000 mg Q12HR ALBERTO Administration Non-Formulary Medication 100 mg 03/06/25 09:00 Cenobamate [Xcopri] PO 04/05/25 08:59 QDAY ALBERTO Non-Formulary Medication 80 mg 03/06/25 09:00 Valbenazine [Ingrezza] PO 04/05/25 08:59 QDAY ALBERTO Ondansetron HCl 4 mg 03/05/25 23:34 Ondansetron Inj 2 Mg/Ml Inj 2 Ml IVP 04/04/25 23:33 Q6H PRN NAUSEA OR VOMITING Protocol Pantoprazole Sodium 40 mg 03/06/25 03:00 03/06/25 03:05 Pantoprazole Inj 40 Mg Vial IVP 04/05/25 02:59 40 mg Q24H ALBERTO Administration Zonisamide 400 mg 03/06/25 21:00 Zonisamide 100 Mg Capsule PO 04/05/25 20:59 HS ALBERTO Plan 49-year-old female with significant past medical history of seizure disorder, developmental delay, hypertension who presented with chief complaint of increased seizure activity for about 1 week. The history was obtained from chart review as patient's mentation was decreased during my evaluation. Later sedated, intubated and mechanically ventilated and admitted to ICU for further management of refractory status epilepticus. Neuro: #Acute postictal encephalopathy 2/ #Refractory status epilepticus Likely in the setting of UTI Patient has a history of seizure disorder, has been having about 3 episodes of breakthrough seizure every month even after medication use, increased in frequency of seizure for about a week ago, and presented to ED after having 4 episodes of seizure at home, and in the ED had about 15 episodes of seizure, resistant to multiple doses of midazolam, diazepam and loading dose of Keppra, and never regained her baseline consciousness in between seizures. UA was positive for UTI -The patient received diazepam 7.5 Mg, and midazolam 10 Mg IV, and was given Keppra 1 g and 2.5 g, ceftriaxone 1 g IV x 1 -Intubated and mechanically ventilated -Sedated with a RASS goal of -4, with propofol -Wean propofol in the morning if no seizure activity for possible extubation -Review EEG with TeleNeurology -Monitor labs, including CBC, CMP and electrolytes -Continue home medications cenobamate 100 mg qday, lamotrigine 100 mg BID, zonisamide 400 mg qday -Increased home Keppra dose from 500 to 1000 mg BID per TeleNeuro recs -Continue home valbenazine 80 mg qday for tardive dyskinesia CVS: #History of hypertension - Currently blood pressure is stable - Continue to monitor blood pressure Pulmonology: - Sedated, intubated and mechanically ventilated to protect airway GI: - No active issue - On GI prophylaxis with pantoprazole 40 Mg IV daily Renal: #Hypokalemia Presented with potassium of 3.2 -Repleted with 20 mEq of KCl on admission -Given additional 40 mEq potassium IV Endocrinology: - No active issue ID: #[id number] UA revealed turbid urine, pH 8.0, protein 2+, blood 1+, nitrite positive, leukocyte esterase positive, RBC 28, WBC 487 -Continue on ceftriaxone 1 g IV qday MSK: - No active issue Psych: -No active issue Health maintenance: Dispo: Patient admitted to ICU for further management of resistant status epilepticus DVT prophylaxis: Enoxaparin Diet: N.p.o. Lines: Peripheral lines CODE STATUS: Full code Patient plan of care was discussed with the attending head of measurement & insights, Dr. Bro. Domonique Post, PGY-3 Attending Provider Attestation/Addendum pt seen and examined with resident, agree with above. in brief this is a 54yo F admitted to the ICU for status epilepticus. She is on 24hr EEG and deep sedation with prop and versed. She is intubated for airway protection and doing well. On exam lungs are clear, HRRR, abd s/nt/bs+. pt is being followed by tele neuro. versed gtt held today. attempted to download EEG for interpretation however unsuccessful. no obvious sz noted. on home meds and keppra dose has been increased to 1000 q12. will maintain sedated and eval off prop in AM. case d/w ICU team labs, imaging, records reviewed ~40ccmin required for eval, exam, review, intervention, discussion and formulation of POC for this critically ill pt with status epilepticus
--- NOTE | 2025-03-06 12:33 | PC.NURSE ---
Patient on continuous EEG, had oral care and was repositioned at 1227 and external stimulation ended at 1231
[2025-03-06] MEDS: XCOPRI 100 MG PO (15:07)
[2025-03-06] MEDS: INGREZZA 80 MG CAPSULE PO (15:11)
--- NOTE | 2025-03-06 16:09 | ESCONSULT_ITS ---
Tele Neuro Consultation Consultation Date 03/06/25 Most Recent Vital Signs Last Vital Signs Temp 98.6 F 03/06/25 08:00 Pulse 79 03/06/25 15:34 Resp 21 H 03/06/25 02:39 BP 115/66 03/06/25 12:00 Pulse Ox 100 03/06/25 15:34 O2 Del Method Mechanical Ventilation 03/06/25 08:00 O2 Flow Rate 13 03/06/25 00:21 FiO2 30 03/06/25 15:34 Laboratory-Coagulation Panel PT 11.7 Seconds (9.0-12.2) 03/06/25 05:58 INR 1.1 (0.9-1.3) 03/06/25 05:58 APTT 27.1 Seconds (22.0-36.0) 03/06/25 05:58 Consultation Narrative [facility] Tele[facility]urology Consult Services Stat Consult Patient Name:???Debbie Allen Date of :???1970 Identification Number:??? Date of Service:???03/06/2025 15:15:08 Diagnosis:?G40.9 - Epilepsy, unspecified Impression 54F with PMH of epilepsy, developmental delay, HTN admitted 03/06 for breakthrough seizures. She was intubated for airway protection, given bolus of. Keppra 3.5G started in the hospital, and started on EEG monitoring. Home AEDs; Lamotirigne 100mg BID, Zonisamide 400mg OD, Keppra 500mg BID, Xcorpi 100mg q, was resumed however Keppra increased to 1g BID. I would recommend evaluation for infection and/or toxic metabolic disturbance, including UDS. Continue Keppra 1g BID. Current EEG report still pending. Continue EEG to evaluate for epileptiform activity and obtain MRI brain with and without contrast to evaluate for structural abnormalities that could be serving as a seizure nidus Recommendations: Our recommendations are outlined below. Diagnostic Studies :MRI brain w/wo contrast Continuous EEG Monitoring Laboratory Studies :Comprehensive Metabolic profile CBC with diff Lactic acid Nursing Recommendations :Maintain Euglycemia and Euthermia Neuro checks q1-2 hrs during ICU stay if critical Once stable neuro checks q 4hrs Seizure precautions :Seizure precautions including no driving for state mandated time frame were discussed with patient with clear understanding DVT Prophylaxis :Choice of Primary Team Disposition :Neurology will follow Advanced Imaging: Advanced Imaging Deferred because: Does not meet criteria due to being out of the 24-hour window for thrombectomy Metrics: Dispatch Time: 03/06/2025 15:15:08 Callback Response Time: 03/06/2025 15:15:38 ED Physician not notified of diagnostic impression and management plan because UA CT HEAD: CT head unremarkable for acute infarction or hemorrhage per Radiology:?no heorrmhage Chief Complaint: seizures History of Present Illness:Patient is a 54 year old Female. 54F Hx: seizure, developmental delay, HTNadmitted 03/06 for intractable seizure. Pt was intubated for having 10 seizures in ED. Keppra 3.5G started in the hospital Home AEDs; Lamotirigne 100mg BID, Zonisamide 400mg OD, Keppra 500mg BID, Xcorpi 100mg q ila Medications: No Anticoagulant use? No Antiplatelet use Reviewed EMR for current medications Allergies:? Reviewed Allergies Unable To Obtain Due To:?Patient Is Confused Social History: Unable To Obtain Due To Patient Status :?Patient Is Confused Family History: Family History Cannot Be Obtained Because:Patient Is Confused ROS :?ROS Cannot Be Obtained Because:? Patient Is Confused Past Surgical History: Past Surgical History Cannot Be Obtained Because: Patient Is Confused There Is No Surgical History Contributory To Today?s Visit Examination: BP(138/75),?Pulse(85), Coma Exam: Ventilator:??Yes Sedated:?Yes Paralyzed:?No Breathes spontaneously above ventilator rate:?No Propofol Responds to Voice:??No Responds to Sternal rub:??Yes Postures:?Yes Withdraws limb from painful stimulation:??Yes?R Arm, L Arm Spontaneous limb movement:? Right arm:?No Left arm:?No Right leg:?No Left leg:?No Pupils:??Equal and Reactive Corneal Reflexes:??Present Oculocephalic Reflexes:??Normal Cough/Gag Reflexes:??Present This consult was conducted in real time using interactive audio and video technology. Patient was informed of the technology being used for this visit and agreed to proceed. Patient located in hospital and provider located at home/office setting. Patient is being evaluated for possible acute neurologic impairment and high probability of imminent or life - threatening deterioration.I spent total of 35 minutes providing care to this patient, including time for face to face visit via telemedicine, review of medical records, imaging studies and discussion of findings with providers, the patient and / or family. Dr Tani Edwards [facility] For Inpatient follow-up with [facility] physician please call [facility] at . As we are not an outpatient service for any post hospital discharge needs please contact the hospital for assistance. If you have any questions for the [facility] physicians or need to reconsult for clinical or diagnostic changes please contact us via [facility] at . Signature :Marina Edwards
[2025-03-06] MEDS: cefTRIAXone/D5w 1gm IV premix 1 GM/50 ML BAG IV (21:49)
[2025-03-06] MEDS: ZONISAMIDE 100 MG CAPSULE 400 MG PO (21:49)
[2025-03-07] VITALS (24 sets, daily range): BP systolic 107–165; BP diastolic 71–105; PULSE 89–117; RESP 8–23; TEMP 35.9–36.9; O2SAT 95–100; BMI 28.8; BMI 28.9
[2025-03-07] MEDS: fentaNYL CIT INJ 50 mCg/ML AMP 2ML IVP (00:34)
[2025-03-07 04:49] LABS: Base Excess -2 (-3-3); HCO3 22 mEq/L (20-26); Inspired Oxygen, FIO2 30 %; O2 Saturation 98 % (91-98); PCO2 35 mmHg (32.0-48.0); PO2 124 mmHg (83-108); pH, Arterial 7.41 (7.35-7.45)
[2025-03-07 04:53] LABS: Allen Test Performed/OK; Puncture Site Right Radial
[2025-03-07] MEDS: PROPOFOL 1,000 MG IVPB 1,000 MG/100 ML VIAL 16.533 MG IV (05:30)
[2025-03-07 06:58] LABS: Basophils # (Auto) 0.1 Thou/mm3 (0.0-0.2); Basophils % (Auto) 0 % (0-2.5); Eosinophils # (Auto) 1.3 Thou/mm3 (0.0-0.5); Eosinophils % (Auto) 8 % (0-10); Hematocrit 43.9 % (36.0-46.0); Hemoglobin 15.0 g/dL (12.0-16.0); Immature Granulocytes Auto 0.08 Thou/mm3 (0.00-0.00); Lymphocytes # (Auto) 1.7 Thou/mm3 (1.0-4.8); Lymphocytes % (Auto) 11 % (10-50); Mean Corpuscular HGB Conc 34.2 g/dl (31.0-37.0); Mean Corpuscular Hemoglobin 30.8 pg (25.0-35.0); Mean Corpuscular Volume 90 fL (80-100); Monocytes # (Auto) 1.5 Thou/mm3 (0.0-0.8); Monocytes % (Auto) 10 % (0-12); Neutrophils # (Auto) 10.6 Thou/mm3 (1.8-7.7); Neutrophils % (Auto) 70 % (37-80); Nucleated Red Blood Cell # 0.00 Thou/mm3 (0.00-0.00); Nucleated Red Blood Cell % 0 /100 WBC (0); Platelet Count 268 Thou/mm3 (140-440); RDW Standard Deviation 42.6 fL (36.4-46.3); Red Blood Count 4.87 Miln/mm3 (4.00-5.20); White Blood Count 15.2 Thou/mm3 (3.6-11.0)
[2025-03-07 07:31] LABS: Alanine Aminotransferase 41 U/L (10-49); Albumin, Serum 4.3 gm/dL (3.5-5.0); Albumin/Globulin Ratio 1.5 (1.2-2.2); Alkaline Phosphatase 144 U/L (46-116); Anion Gap 16 (7-16); Aspartate Amino Transferase 22 U/L (0-34); BUN/Creatinine Ratio 7 Ratio (12-20); Bilirubin,Total 0.4 mg/dL (0.3-1.2); Blood Urea Nitrogen < 5 mg/dL (9-23); Calcium 9.4 mg/dL (8.3-10.6); Calcium (Corrected) 9.4 mg/dL (8.5-10.1); Carbon Dioxide 20.4 mMol/L (20.0-31.0); Chloride 103 mMol/L (98-107); Creatinine (Component) 0.7 mg/dL (0.6-1.3); Estimated Creatinine Clearance 66.6 mL/min (>60); Globulin 2.9 gm/dL (2.3-3.5); Glucose 95 mg/dL (74-106); Magnesium 1.7 mg/dL (1.6-2.6); Osmolality,Calculated 274 (275-295); Phosphorous 4.2 mg/dL (2.4-5.1); Potassium 3.5 mMol/L (3.4-5.1); Sodium 139 mMol/L (136-145); Total Protein 7.2 gm/dL (5.7-8.2); eGFR > 60 See Note
[2025-03-07] MEDS: XCOPRI 100 MG NG (08:25)
[2025-03-07] MEDS: ENOXAPARIN SOD INJ 40 MG/0.4 ML SYRINGE SC (08:27)
[2025-03-07] MEDS: levETIRAcetam INJ 100 MG/ML VIAL 5ML 1000 MG IVP ×2 (08:31→21:50)
[2025-03-07] MEDS: INGREZZA 80 MG CAPSULE NG (08:59)
--- NOTE | 2025-03-07 15:49 | PC.SS ---
[employer]ING DEVELOPER conducted bedside contact with the patient conduct initial assessment and to discuss discharge planning.? At bedside with patient was chiropractic care, Helen Gonzalez .? Patient is developmentally delayed.? Patient is a client of [facility].? Patient resides at [facility].? Patient is fully ambulatory.? Patient does not utilize home oxygen.? Patient requires assistance with completion of ADL?s.? Patient is conserved.? [facility] possesses patient?s medical rights.? Patient?s PCP is Cherelle Butts [facility].? [facility] is utilized for medication services.? Patient has a sister, Julia Allen who visits the patient.? Patient has been at [facility] for approximately 8 years.? Plan is for the patient to return home at the time of discharge.? [facility] will provide transportation on behalf of the patient. ?No further discharge needs identified by the patient.? No further intervention required at this time, social science manager will be available to address any further concerns.? Next of Kin: Helen Gonzalez D/C Plan: [facility]
--- NOTE | 2025-03-07 15:52 | ESPR_ITS ---
Documentation for date of: 03/07/25 Subjective Subjective Interval history: Patient is a 49-year-old female with significant past medical history of seizure disorder, developmental delay, hypertension who presented with chief complaint of increased seizure activity for about 1 week. The history was obtained from chart review as patient's mentation was decreased during my evaluation. The patient typically had 3 breakthrough seizure every month, but for the past week or seizure activity has increased in frequency, and her cognitive function has decreased in between seizures. At baseline, sees independent with ADLs, and able to verbalize her basic needs. On the day of presentation, the patient had about 4 witnessed seizure at home, and about 15 witnessed seizure each lasting less than 30 seconds in the ED, and was resistant to multiple doses of midazolam and loading dose of Keppra 3.5 g. She follows up with Dr Isbell as an outpatient. As per family and caregiver, she did not had any fever or chills, SOB, chest pain, nausea or vomiting or dysuria. In the ED, initially her vitals were significant for BP 143/90, pulse 130, RR 14, saturating 95% on room air. Labs revealed CBC WNL, chemistry panel revealed potassium 3.2, sodium 141, BUN 9, creatinine 0.8, blood sugar 111, UA revealed turbid urine, pH 8.0, protein 2+, blood 1+, nitrite positive, leukocyte esterase positive, RBC 28, WBC 487, U tox positive for benzodiazepine, head CT negative for acute hemorrhage, mass effect or midline shift, chest x-ray was suspicious for right middle lobe pneumonia. 03/07/2025: No new seizure events since the patient came up to the ICU this morning. Patient remains on continuous EEG monitoring at a RASS of -4. Patient responds with non-specific extremity movements to touch and localizes to pain. No myoclonic jerks noted. Midazolam and propofol drips were maxed out, midazolam was turned off and the patient remains on propofol. Requested TeleNeuro rounding on the patient this morning and was recommended to continue with the current doses of anti-epileptics including Keppra, cenobamate, lamotrigine, and zonisamide. EEG was paused and submitted to obtain report of data gathered so far but TeleNeurologist was unable to see in system. Will keep the patient sedated on propofol with RASS -4 overnight then wean to RASS 0 in the morning for SAT/SBT in preparation for extubation. 03/08/2025: No seizure events overnight, patient remained on continuous EEG monitoring. Patient was on propofol drip at 40 to 45 mcg/kg/min through the night, at one point became restless so was given fentanyl 50 mcg IV x1 with adequate sedation afterwards. In the morning weaned to RASS 0 and appropriate for extubation with toleration of pressure support. Patient extubated without complication. Patient currently resting on room air, awake and alert, however with minimal interactivity at this time, nonverbal. Will update caregiver. Continue all 4 antiepileptics. Continue ceftriaxone for Proteus UTI. Swallow studies are pending post extubation. Patient is stable for downgrade to Team C. Exam Vital Signs Temp Pulse Resp BP Pulse Ox O2 Del Method O2 Flow Rate 98.1 F 94 16 125/81 95 Mechanical Ventilation 6 03/07/25 12:00 03/07/25 15:00 03/07/25 15:00 03/07/25 15:00 03/07/25 15:00 03/06/25 16:00 03/07/25 10:08 FiO2 30 03/07/25 06:00 Narrative Exam Physical Exam General: Awake and in no acute distress. Nonverbal, non-toxic appearing. HEENT: Normocephalic, atraumatic, mucous membranes moist. Heart: Regular rate and rhythm, normal S1 and S2, no murmurs. Lungs: Clear to auscultation with no wheezing or crackles. Abdomen: Soft, nondistended, nontender, positive bowel sounds. ?No guarding or rebound tenderness. Neurologic: Alert and oriented x3, no gross neurological deficit, and patient able to move all 4 extremities. Extremities: No edema. Mild left knee abrasion healing. Skin: No rash or ecchymoses. Objective Labs 03/07/25 05:19 03/07/25 05:19 Labs: Laboratory Results - last 24 hr 03/07/25 03/07/25 04:33 05:19 WBC 15.2 H RBC 4.87 Hgb 15.0 Hct 43.9 MCV 90 MCH 30.8 MCHC 34.2 RDW Std Deviation 42.6 Plt Count 268 Neut % (Auto) 70 Lymph % (Auto) 11 [place] % (Auto) 10 Eos % (Auto) 8 Baso % (Auto) 0 Neut # (Auto) 10.6 H Lymph # (Auto) 1.7 [place] # (Auto) 1.5 H Eos # (Auto) 1.3 H Baso # (Auto) 0.1 Immature Gran # (Auto) 0.08 H Absolute Nucleated RBC 0.00 Immature Gran % 1 H Nucleated RBC % 0 Puncture Site Right Radial ABG pH 7.41 ABG pCO2 35 ABG pO2 124 H D ABG HCO3 22 ABG O2 Saturation 98 ABG Base Excess -2 FiO2 30 Sodium 139 Potassium 3.5 Chloride 103 Carbon Dioxide 20.4 Anion Gap 16 BUN < 5 L Creatinine 0.7 Estim Creat Clear Calc 66.6 eGFR > 60 BUN/Creatinine Ratio 7 L Glucose 95 Calculated Osmolality 274 L Calcium 9.4 Corrected Calcium 9.4 Phosphorus 4.2 Magnesium 1.7 Total Bilirubin 0.4 AST 22 ALT 41 Alkaline Phosphatase 144 H D Total Protein 7.2 Albumin 4.3 Globulin 2.9 Albumin/Globulin Ratio 1.5 ABG Interpretation ABG results: 03/05/25 03/06/25 03/07/25 15:00 03:09 04:33 ABG pH 7.42 7.41 ABG pCO2 38 35 ABG pO2 165 H 124 H D ABG HCO3 24 22 ABG O2 Saturation 98 98 ABG Base Excess 0 -2 VBG pH 7.41 VBG pCO2 39 VBG pO2 65 H VBG Base Excess 0 Quality Measures Quality Measures VTE prophylaxis and none Assessment & Plan Assessment Current Active Medications: Generic Name Dose Route Start Last Admin Trade Name Freq PRN Reason Stop Dose Admin Acetaminophen 650 mg 03/05/25 23:34 Acetaminophen Supp 650 Mg Supp AR 04/04/25 23:33 Q6HR PRN Fever > 100.4 or pain Acetaminophen 650 mg 03/07/25 15:52 Acetaminophen 325 Mg Tablet PO 04/06/25 15:51 Q6HR PRN FEVER >101 Xcopri 100 Mg Tablet 0 ea 03/07/25 08:00 03/07/25 08:25 NG 04/05/25 14:59 1 tablet QDAY@0800 [facility] Administration Ingrezza 80 Mg 0 ea 03/07/25 08:00 03/07/25 08:59 Capsule NG 04/05/25 15:14 1 capsule QDAY@0800 [facility] Administration Enoxaparin Sodium 40 mg 03/06/25 09:00 03/07/25 08:27 Enoxaparin Sod Inj 40 Mg/0.4 Ml Syringe SC 03/20/25 08:59 40 mg QDAY ALBERTO Administration Ceftriaxone Sodium/Dextrose 1 gm in 50 mls @ 100 mls/hr 03/06/25 21:00 03/06/25 21:49 Rocephin/D5w 1gm Iv Premix IV 03/13/25 20:59 100 mls/hr DAILY@2100 ALBERTO Administration Norepinephrine Bitartrate 16 mg in 250 mls @ 2.87 mls/hr 03/06/25 01:41 Levophed In Ns 16mg/250ml IV 04/05/25 01:40 .Q24H PRN PER PROTOCOL Protocol 0.05 MCG/KG/MIN Propofol 1,000 mg in 100 mls @ 1.837 mls/hr 03/07/25 05:16 03/07/25 07:32 Diprivan Ivpb IV 04/05/25 01:38 0 mcg/kg/min .Q24H PRN 0 mls/hr PER PROTOCOL Titration Protocol 5 MCG/KG/MIN Lamotrigine 100 mg 03/06/25 09:00 03/07/25 08:28 Lamotrigine 100 Mg Tablet PO 04/05/25 08:59 100 mg BID ALBERTO Administration Levetiracetam 1,000 mg 03/06/25 09:00 03/07/25 08:31 Levetiracetam Inj 100 Mg/Ml Vial 5ml IVP 04/05/25 08:59 1,000 mg Q12HR ALBERTO Administration Ondansetron HCl 4 mg 03/05/25 23:34 Ondansetron Inj 2 Mg/Ml Inj 2 Ml IVP 04/04/25 23:33 Q6H PRN NAUSEA OR VOMITING Protocol Pantoprazole Sodium 40 mg 03/06/25 03:00 03/07/25 03:04 Pantoprazole Inj 40 Mg Vial IVP 04/05/25 02:59 40 mg Q24H ALBERTO Administration Zonisamide 400 mg 03/06/25 21:00 03/06/25 21:49 Zonisamide 100 Mg Capsule PO 04/05/25 20:59 400 mg HS ALBERTO Administration Plan 49-year-old female with significant past medical history of seizure disorder, developmental delay, hypertension who presented with chief complaint of increased seizure activity for about 1 week. The history was obtained from chart review as patient's mentation was decreased during my evaluation. Later sedated, intubated and mechanically ventilated and admitted to ICU for further management of refractory status epilepticus. Neuro: #Acute postictal encephalopathy, resolved #Refractory status epilepticus, resolved Likely in the setting of UTI Patient has a history of seizure disorder, has been having about 3 episodes of breakthrough seizure every month even after medication use, increased in frequency of seizure for about a week ago, and presented to ED after having 4 episodes of seizure at home, and in the ED had about 15 episodes of seizure, resistant to multiple doses of midazolam, diazepam and loading dose of Keppra, and never regained her baseline consciousness in between seizures. UA was positive for UTI. The patient received diazepam 7.5 Mg, and midazolam 10 Mg IV, and was given Keppra 1 g and 2.5 g, ceftriaxone 1 g IV x 1 in the ED. -Pending 24 hour continuous EEG -Monitor labs, including CBC, CMP and electrolytes -Continue home medications cenobamate 100 mg qday, lamotrigine 100 mg BID, zonisamide 400 mg qday -Continue home Keppra dose at 1000 mg BID per TeleNeuro recs -Continue home valbenazine 80 mg qday for tardive dyskinesia CVS: #History of hypertension Currently blood pressure is stable - Continue to monitor blood pressure - Consider adding antihypertensive if BP elevated Pulmonology: #S/p intubation for airway protection Patient was sedated, intubated and mechanically ventilated to protect airway - Nurse swallow screen - Speech evaluation - Resume diet as appropriate GI: - No active issue - On GI prophylaxis with pantoprazole 40 mg IV daily Renal: #Hypokalemia - resolved Presented with potassium of 3.2 -Replete as needed Endocrinology: - No active issue ID: #Proteus mirabilis UTI UA revealed turbid urine, pH 8.0, protein 2+, blood 1+, nitrite positive, leukocyte esterase positive, RBC 28, WBC 487 On 03/07/2025 urine culture which was taken on admission resulted in Proteus mirabilis, sensitive to ceftriaxone. -Continue on ceftriaxone 1 g IV qday MSK: - No active issue Psych: -No active issue Health maintenance: Dispo: Patient admitted to ICU for further management of resistant status epilepticus, downgraded to Telemetry DVT prophylaxis: Enoxaparin Diet: NPO Lines: Peripheral lines CODE STATUS: Full code Patient plan of care was discussed with the attending clerical car checker, Dr. Bro. Domonique Post, PGY-3 Attending Provider Attestation/Addendum pt seen and examined with resident, agree with above. in brief this is a 54yo F admitted with denzel. She had no acute overnight events. today she is off sedation and doing well, she is awake and follows some commands. she is on minimal vent support. no significant change in the rest of her physical exam. she has good weening parameters and will be extubated today. If she remains stable will be downgraded. case d/w ICU team labs, imaging, records reviewed ~38ccmin required for eval, exam, review, intervention, discussion and formulation of POC for this critically ill pt with DENZEL
--- NOTE | 2025-03-07 17:39 | ESPR_ITS ---
<Statement entered by Richard Gibson MD - 03/09/25 11:21> Patient was seen and examined at bedside. laying on bed comfortably, no seizure activity reported. pending neuro recs for DC. - Patient's plan and care discussed with my attending, Dr. Fercho Gibson MD Internal Medicine PGY-3 Documentation for date of: 03/07/25 Subjective Subjective Interval history: Patient seen while eating dinner, Nurse Jessica, helped in translation. Patient was able to deny SOB, chest pain, and disturbances. Her overall mentation seems to be at baseline according to the chart. She has good appetite. The interview was unable to continue because patient was hyper-focused on using the restroom. Exam Vital Signs Temp Pulse Resp BP Pulse Ox O2 Del Method O2 Flow Rate 98 F 92 21 H 137/73 H 99 Mechanical Ventilation 6 03/07/25 16:00 03/07/25 16:00 03/07/25 16:00 03/07/25 16:00 03/07/25 16:00 03/06/25 16:00 03/07/25 10:08 FiO2 30 03/07/25 06:00 Narrative Exam Physical Exam General: Awake and in no acute distress. Nonverbal, non-toxic appearing. HEENT: Normocephalic, atraumatic, mucous membranes moist. Heart: Regular rate and rhythm, normal S1 and S2, no murmurs. Lungs: Clear to auscultation with no wheezing or crackles. Abdomen: Soft, nondistended, nontender, positive bowel sounds. ?No guarding or rebound tenderness. Neurologic: Alert and oriented x3, no gross neurological deficit, and patient able to move all 4 extremities. Extremities: No edema. Mild left knee abrasion healing. Skin: No rash or ecchymoses. Objective Labs 03/08/25 06:10 03/08/25 06:10 Labs: Laboratory Results - last 24 hr 03/07/25 03/07/25 04:33 05:19 WBC 15.2 H RBC 4.87 Hgb 15.0 Hct 43.9 MCV 90 MCH 30.8 MCHC 34.2 RDW Std Deviation 42.6 Plt Count 268 Neut % (Auto) 70 Lymph % (Auto) 11 [place] % (Auto) 10 Eos % (Auto) 8 Baso % (Auto) 0 Neut # (Auto) 10.6 H Lymph # (Auto) 1.7 [place] # (Auto) 1.5 H Eos # (Auto) 1.3 H Baso # (Auto) 0.1 Immature Gran # (Auto) 0.08 H Absolute Nucleated RBC 0.00 Immature Gran % 1 H Nucleated RBC % 0 Puncture Site Right Radial ABG pH 7.41 ABG pCO2 35 ABG pO2 124 H D ABG HCO3 22 ABG O2 Saturation 98 ABG Base Excess -2 FiO2 30 Sodium 139 Potassium 3.5 Chloride 103 Carbon Dioxide 20.4 Anion Gap 16 BUN < 5 L Creatinine 0.7 Estim Creat Clear Calc 66.6 eGFR > 60 BUN/Creatinine Ratio 7 L Glucose 95 Calculated Osmolality 274 L Calcium 9.4 Corrected Calcium 9.4 Phosphorus 4.2 Magnesium 1.7 Total Bilirubin 0.4 AST 22 ALT 41 Alkaline Phosphatase 144 H D Total Protein 7.2 Albumin 4.3 Globulin 2.9 Albumin/Globulin Ratio 1.5 ABG Interpretation ABG results: 03/05/25 03/06/25 03/07/25 15:00 03:09 04:33 ABG pH 7.42 7.41 ABG pCO2 38 35 ABG pO2 165 H 124 H D ABG HCO3 24 22 ABG O2 Saturation 98 98 ABG Base Excess 0 -2 VBG pH 7.41 VBG pCO2 39 VBG pO2 65 H VBG Base Excess 0 Quality Measures Quality Measures VTE prophylaxis and none Assessment & Plan Assessment Current Active Medications: Generic Name Dose Route Start Last Admin Trade Name Freq PRN Reason Stop Dose Admin Acetaminophen 650 mg 03/07/25 15:52 Acetaminophen 325 Mg Tablet PO 04/06/25 15:51 Q6HR PRN FEVER >101 Xcopri 100 Mg Tablet 0 ea 03/07/25 08:00 03/07/25 08:25 NG 04/05/25 14:59 1 tablet QDAY@0800 [facility] Administration Ingrezza 80 Mg 0 ea 03/07/25 08:00 03/07/25 08:59 Capsule NG 04/05/25 15:14 1 capsule QDAY@0800 [facility] Administration Enoxaparin Sodium 40 mg 03/06/25 09:00 03/07/25 08:27 Enoxaparin Sod Inj 40 Mg/0.4 Ml Syringe SC 03/20/25 08:59 40 mg QDAY ALBERTO Administration Ceftriaxone Sodium/Dextrose 1 gm in 50 mls @ 100 mls/hr 03/06/25 21:00 03/06/25 21:49 Rocephin/D5w 1gm Iv Premix IV 03/13/25 20:59 100 mls/hr DAILY@2100 [facility] Administration Lamotrigine 100 mg 03/06/25 09:00 03/07/25 08:28 Lamotrigine 100 Mg Tablet PO 04/05/25 08:59 100 mg BID ALBERTO Administration Levetiracetam 1,000 mg 03/06/25 09:00 03/07/25 08:31 Levetiracetam Inj 100 Mg/Ml Vial 5ml IVP 04/05/25 08:59 1,000 mg Q12HR ALBERTO Administration Ondansetron HCl 4 mg 03/05/25 23:34 Ondansetron Inj 2 Mg/Ml Inj 2 Ml IVP 04/04/25 23:33 Q6H PRN NAUSEA OR VOMITING Protocol Pantoprazole Sodium 40 mg 03/06/25 03:00 03/07/25 03:04 Pantoprazole Inj 40 Mg Vial IVP 04/05/25 02:59 40 mg Q24H AL[facility]ERTO Administration Zonisamide 400 mg 03/06/25 21:00 03/06/25 21:49 Zonisamide 100 Mg Capsule PO 04/05/25 20:59 400 mg HS ALBERTO Administration Plan 49-year-old female with significant past medical history of seizure disorder, developmental delay, hypertension who presented with chief complaint of increased seizure activity for about 1 week. The history was obtained from chart review as patient's mentation was decreased during my evaluation. Later sedated, intubated and mechanically ventilated and admitted to ICU for further management of refractory status epilepticus. Now patient is being downgraded to [facility]. Neuro: #Acute postictal encephalopathy, resolved #Refractory status epilepticus, resolved Likely in the setting of UTI Patient has a history of seizure disorder, has been having about 3 episodes of breakthrough seizure every month even after medication use, increased in frequency of seizure for about a week ago, and presented to ED after having 4 episodes of seizure at home, and in the ED had about 15 episodes of seizure, resistant to multiple doses of midazolam, diazepam and loading dose of Keppra, and never regained her baseline consciousness in between seizures. UA was positive for UTI. The patient received diazepam 7.5 Mg, and midazolam 10 Mg IV, and was given Keppra 1 g and 2.5 g, ceftriaxone 1 g IV x 1 in the ED. -Pending 24 hour continuous EEG -Monitor labs, including CBC, CMP and electrolytes -Continue home medications cenobamate 100 mg qday, lamotrigine 100 mg BID, zonisamide 400 mg qday -Continue home Keppra dose at 1000 mg BID per TeleNeuro recs -Continue home valbenazine 80 mg qday for tardive dyskinesia [facility]: #History of hypertension Currently blood pressure is stable - Continue to monitor blood pressure - Consider adding antihypertensive if BP elevated Pulmonology: #S/p intubation for airway protection Patient was sedated, intubated and mechanically ventilated to protect airway - Nurse swallow screen - Speech evaluation - Resume diet as appropriate GI: - No active issue - On GI prophylaxis with pantoprazole 40 mg IV daily Renal: #Hypokalemia - resolved Presented with potassium of 3.2 -Replete as needed Endocrinology: - No active issue ID: #Proteus mirabilis UTI UA revealed turbid urine, pH 8.0, protein 2+, blood 1+, nitrite positive, leukocyte esterase positive, RBC 28, WBC 487 On 03/07/2025 urine culture which was taken on admission resulted in Proteus mirabilis, sensitive to ceftriaxone. -Continue on ceftriaxone 1 g IV qday MSK: - No active issue Psych: -No active issue Health maintenance: Dispo: Patient admitted to ICU for further management of resistant status epilepticus, downgraded to Telemetry DVT prophylaxis: Enoxaparin Diet: NPO Lines: Peripheral lines CODE STATUS: Full code Patient plan of care was discussed with the attending vehicle window tinter, Dr. Brantley and supervising residents Dr. Arriola and Dr. Gibson. Merrill Moore, PGY-1 Attending Provider Attestation/Addendum I have discussed and was present for the essential components of the history, physical examination, diagnosis, and treatment plan with the resident. I agree with the patient's care as documented by the resident and amended herein by me. Franklin Brantley DO. Although this document has been carefully reviewed, there may still be some phonetic and other typographical errors. These errors are purely grammatical due to imperfections in the software program and should not be construed in any way to compromise the substance of the patient's medical care during this visit.
--- NOTE | 2025-03-07 17:51 | PD.RESPRO ---
Documentation for date of: 03/07/25 Subjective Subjective Interval history: Patient is a 54-year-old female with a past medical history of hypertension, seizures, and developmental delay who was admitted on 03/15/2025 with status refractory epilepticus required ICU admission with intubation and started on propofol. Patient subsequently noted to have an UTI. Patient examined at bedside. Patient is alert and orientated X 2. Patient denied any chest pain, abdominal pain, and improved dysuria.Patient denies pyrexia or chills. Denied headache. Continue current medication including Lamotrigine 100 mg PO BID, Keppra 1000 mg IV BID (consider oral), Zonisamide 400 mg PO, and Resume Xcopri (not in formulary, may need to bring from home) . EEG pending. Exam Vital Signs Temp Pulse Resp BP Pulse Ox O2 Del Method O2 Flow Rate 98 F 92 21 H 137/73 H 99 Mechanical Ventilation 6 03/07/25 16:00 03/07/25 16:00 03/07/25 16:00 03/07/25 16:00 03/07/25 16:00 03/06/25 16:00 03/07/25 10:08 FiO2 30 03/07/25 06:00 Narrative Exam General Appearance: Alert & Oriented X2, well-nourished female who is lying in bed in no acute distress HEENT: Skull symmetrical and atraumatic. Conjunctivae pin and moist. Pupils equal, round, reactive to light and accommodation (PERRL). External ear without lesion or discharge. Straight, nares patient, mucosa pink, no discharge. Cardio: Normal Rate and Rhythm with S1 and S2 heart sounds. No murmurs or extra heart sounds auscultated. No bruits on carotid auscultation. No peripheral edema or cyanosis. Lungs: Symmetric with good expansion. Chest and back non-tender. Breath sounds vesicular without crackles, wheezing or rhonchi Abdomen: Non-tender, Non-distended, Normal Reactive Bowel Sounds Neuro: YesAlert,Yes cooperative, Yes oriented to person, Yes place, and No time. Speech clear. CN grossly intact. Upper motor strength 5/5 and Lower motor strength 5/5. Sensation intact. Objective Labs 03/08/25 06:10 03/08/25 06:10 Labs: Laboratory Results - last 24 hr 03/07/25 03/07/25 04:33 05:19 WBC 15.2 H RBC 4.87 Hgb 15.0 Hct 43.9 MCV 90 MCH 30.8 MCHC 34.2 RDW Std Deviation 42.6 Plt Count 268 Neut % (Auto) 70 Lymph % (Auto) 11 [place] % (Auto) 10 Eos % (Auto) 8 Baso % (Auto) 0 Neut # (Auto) 10.6 H Lymph # (Auto) 1.7 [place] # (Auto) 1.5 H Eos # (Auto) 1.3 H Baso # (Auto) 0.1 Immature Gran # (Auto) 0.08 H Absolute Nucleated RBC 0.00 Immature Gran % 1 H Nucleated RBC % 0 Puncture Site Right Radial ABG pH 7.41 ABG pCO2 35 ABG pO2 124 H D ABG HCO3 22 ABG O2 Saturation 98 ABG Base Excess -2 FiO2 30 Sodium 139 Potassium 3.5 Chloride 103 Carbon Dioxide 20.4 Anion Gap 16 BUN < 5 L Creatinine 0.7 Estim Creat Clear Calc 66.6 eGFR > 60 BUN/Creatinine Ratio 7 L Glucose 95 Calculated Osmolality 274 L Calcium 9.4 Corrected Calcium 9.4 Phosphorus 4.2 Magnesium 1.7 Total Bilirubin 0.4 AST 22 ALT 41 Alkaline Phosphatase 144 H D Total Protein 7.2 Albumin 4.3 Globulin 2.9 Albumin/Globulin Ratio 1.5 ABG Interpretation ABG results: 03/05/25 03/06/25 03/07/25 15:00 03:09 04:33 ABG pH 7.42 7.41 ABG pCO2 38 35 ABG pO2 165 H 124 H D ABG HCO3 24 22 ABG O2 Saturation 98 98 ABG Base Excess 0 -2 VBG pH 7.41 VBG pCO2 39 VBG pO2 65 H VBG Base Excess 0 Quality Measures Quality Measures VTE prophylaxis and none Assessment & Plan Assessment Current Active Medications: Generic Name Dose Route Start Last Admin Trade Name Freq PRN Reason Stop Dose Admin Acetaminophen 650 mg 03/07/25 15:52 Acetaminophen 325 Mg Tablet PO 04/06/25 15:51 Q6HR PRN FEVER >101 Xcopri 100 Mg Tablet 0 ea 03/07/25 08:00 03/07/25 08:25 NG 04/05/25 14:59 1 tablet QDAY@0800 ALBERTO Administration Ingrezza 80 Mg 0 ea 03/07/25 08:00 03/07/25 08:59 Capsule NG 04/05/25 15:14 1 capsule QDAY@0800 ALBERTO Administration Enoxaparin Sodium 40 mg 03/06/25 09:00 03/07/25 08:27 Enoxaparin Sod Inj 40 Mg/0.4 Ml Syringe SC 03/20/25 08:59 40 mg QDAY ALBERTO Administration Ceftriaxone Sodium/Dextrose 1 gm in 50 mls @ 100 mls/hr 03/06/25 21:00 03/06/25 21:49 Rocephin/D5w 1gm Iv Premix IV 03/13/25 20:59 100 mls/hr DAILY@2100 ALBERTO Administration Lamotrigine 100 mg 03/06/25 09:00 03/07/25 08:28 Lamotrigine 100 Mg Tablet PO 04/05/25 08:59 100 mg BID ALBERTO Administration Levetiracetam 1,000 mg 03/06/25 09:00 03/07/25 08:31 Levetiracetam Inj 100 Mg/Ml Vial 5ml IVP 04/05/25 08:59 1,000 mg Q12HR ALBERTO Administration Ondansetron HCl 4 mg 03/05/25 23:34 Ondansetron Inj 2 Mg/Ml Inj 2 Ml IVP 04/04/25 23:33 Q6H PRN NAUSEA OR VOMITING Protocol Pantoprazole Sodium 40 mg 03/06/25 03:00 03/07/25 03:04 Pantoprazole Inj 40 Mg Vial IVP 04/05/25 02:59 40 mg Q24H ALBERTO Administration Zonisamide 400 mg 03/06/25 21:00 03/06/25 21:49 Zonisamide 100 Mg Capsule PO 04/05/25 20:59 400 mg HS ALBERTO Administration Plan Patient is a 54 year old female with a past medical history of seizures, hypertension, and developmental delay who was admitted directly to ICU on 03/06/2025 secondary to status epileticus and downgraded on 03/07/2025. #Seizure #Refractory status epilepticus, resolved. #Acute postical encephalopathy, resolved. Patient presented to the emergency room overnight on 03/05/2025 with chief complain of muliptle seizures likely triggered secondary to urinary tract infection (day 2 of Ceftriaxone 03/06/2025) as head CT negative for acute hemorrhage or mass effect. Chest x ray negative for pneumonia. EKG noted for sinus tachycardia no ST elevation noted. Home medication of Keppra 500 mg PO BID-->increased by tele neuro, Lamotrigine, and Zonisamide. Plan: -EEG taken, pending read -Resum Xcopri (home medication) -New dose, Keppra 1000 mg IV BID, consider transitioning to oral. -Lamotrigine 100 mg PO BID -Zonisamide 400 mg PO HS -Valbenazine 80 mg PO Qay #UTI, Proteus Mirabilis #Hypertension #S/p intubation now exutbated on 03/07/2025 #Developmental Delays #Hypokelemia, reoslved. - The patient's plan was discussed with attending Dr. Sukhi Doshi MD PGY2 Internal Medicine Attending Provider Attestation/Addendum I personally have seen and examined the patient at the bedside and I agreed with resident's findings, assessment and plan of care. iMP: SZ Disorder, admitted with status Transferred from ICU, mental status: back to baseline. No sz so far. Continue Keppra 1000 mg bid, zonisamide 400 mg qhs, xcopri 100 mg qd and LTG 100 mg bid. EEG showed multifocal paroxysmal epileptiform discharges consistent with sz disorder. If remains sz free for more than 24 hours, ok to be discharged home.
[2025-03-07] MEDS: cefTRIAXone/D5w 1gm IV premix 1 GM/50 ML BAG IV (21:51)
[2025-03-07] MEDS: ZONISAMIDE 100 MG CAPSULE 400 MG PO (21:51)
--- NOTE | 2025-03-07 22:57 | PC.RT ---
pt remains on RA hr 102, RR17, [id number] on a tele monitor no distress noted .
[2025-03-08] VITALS: PULSE 94
[2025-03-08 04:00] VITALS: BP 114/81; PULSE 101; PULSE 94; RESP 19; TEMP 36.4; O2SAT 98
[2025-03-08 05:47] VITALS: BMI 28.9
[2025-03-08 06:27] LABS: Basophils # (Auto) 0.1 Thou/mm3 (0.0-0.2); Basophils % (Auto) 1 % (0-2.5); Eosinophils # (Auto) 1.4 Thou/mm3 (0.0-0.5); Eosinophils % (Auto) 14 % (0-10); Hematocrit 39.2 % (36.0-46.0); Hemoglobin 13.2 g/dL (12.0-16.0); Immature Granulocytes Auto 0.05 Thou/mm3 (0.00-0.00); Lymphocytes # (Auto) 1.9 Thou/mm3 (1.0-4.8); Lymphocytes % (Auto) 19 % (10-50); Mean Corpuscular HGB Conc 33.7 g/dl (31.0-37.0); Mean Corpuscular Hemoglobin 30.5 pg (25.0-35.0); Mean Corpuscular Volume 91 fL (80-100); Monocytes # (Auto) 1.1 Thou/mm3 (0.0-0.8); Monocytes % (Auto) 11 % (0-12); Neutrophils # (Auto) 5.7 Thou/mm3 (1.8-7.7); Neutrophils % (Auto) 56 % (37-80); Nucleated Red Blood Cell # 0.00 Thou/mm3 (0.00-0.00); Nucleated Red Blood Cell % 0 /100 WBC (0); Platelet Count 293 Thou/mm3 (140-440); RDW Standard Deviation 42.6 fL (36.4-46.3); Red Blood Count 4.33 Miln/mm3 (4.00-5.20); White Blood Count 10.2 Thou/mm3 (3.6-11.0)
[2025-03-08 06:50] LABS: Alanine Aminotransferase 34 U/L (10-49); Albumin, Serum 4.1 gm/dL (3.5-5.0); Albumin/Globulin Ratio 1.4 (1.2-2.2); Alkaline Phosphatase 118 U/L (46-116); Anion Gap 10 (7-16); Aspartate Amino Transferase 20 U/L (0-34); BUN/Creatinine Ratio 13 Ratio (12-20); Bilirubin,Total 0.4 mg/dL (0.3-1.2); Blood Urea Nitrogen 10 mg/dL (9-23); Calcium 9.6 mg/dL (8.3-10.6); Calcium (Corrected) 9.6 mg/dL (8.5-10.1); Carbon Dioxide 25.5 mMol/L (20.0-31.0); Chloride 108 mMol/L (98-107); Creatinine (Component) 0.8 mg/dL (0.6-1.3); Estimated Creatinine Clearance 58.3 mL/min (>60); Globulin 2.9 gm/dL (2.3-3.5); Glucose 114 mg/dL (74-106); Magnesium 2.3 mg/dL (1.6-2.6); Osmolality,Calculated 284 (275-295); Phosphorous 2.8 mg/dL (2.4-5.1); Potassium 3.6 mMol/L (3.4-5.1); Sodium 143 mMol/L (136-145); Total Protein 7.0 gm/dL (5.7-8.2); eGFR > 60 See Note
[2025-03-08 08:00] VITALS: BP 125/75; PULSE 102; PULSE 83; RESP 18; TEMP 36.1; O2SAT 99
[2025-03-08] MEDS: XCOPRI 100 MG NG (09:02)
[2025-03-08] MEDS: INGREZZA 80 MG CAPSULE NG (09:03)
[2025-03-08] MEDS: levETIRAcetam INJ 100 MG/ML VIAL 5ML 1000 MG IVP (09:03)
[2025-03-08] MEDS: ENOXAPARIN SOD INJ 40 MG/0.4 ML SYRINGE SC (09:03)
--- NOTE | 2025-03-08 09:05 | PC.NURSE ---
lamictal not in patient cubby or pixis. Called Pharmacy to bring up. will administer when brought.
[2025-03-08 12:00] VITALS: BP 104/76; PULSE 87; PULSE 96; RESP 18; TEMP 36.2; O2SAT 98
--- NOTE | 2025-03-08 14:15 | PC.SS ---
SS spoke to Helen @ [facility] who states they will be here between 3:30-4p.m. Patient ready for d/c.
--- NOTE | 2025-03-08 15:00 | PD.RESPRO ---
Documentation for date of: 03/08/25 Subjective Subjective Interval history: Patient is a 54-year-old female with a past medical history of hypertension, seizures, and developmental delay who was admitted on 03/15/2025 with status refractory epilepticus required ICU admission with intubation and started on propofol. Patient subsequently noted to have an UTI. Patient examined at bed this afternoon. Patient denied any seizures overnight. Patient is alert and following commands. Patient denied headaches and denied abdominal pain. Exam Vital Signs Temp Pulse Resp BP Pulse Ox O2 Del Method O2 Flow Rate 97.2 F 87 18 104/76 98 Room Air 6 03/08/25 12:00 03/08/25 12:00 03/08/25 12:00 03/08/25 12:00 03/08/25 12:00 03/08/25 12:00 03/07/25 10:08 FiO2 30 03/07/25 06:00 Narrative Exam General Appearance: Alert & Oriented X2, well-nourished female who is lying in bed in no acute distress HEENT: Skull symmetrical and atraumatic. Conjunctivae pin and moist. Pupils equal, round, reactive to light and accommodation (PERRL). External ear without lesion or discharge. Straight, nares patient, mucosa pink, no discharge. Cardio: Normal Rate and Rhythm with S1 and S2 heart sounds. No murmurs or extra heart sounds auscultated. No bruits on carotid auscultation. No peripheral edema or cyanosis. Lungs: Symmetric with good expansion. Chest and back non-tender. Breath sounds vesicular without crackles, wheezing or rhonchi Abdomen: Non-tender, Non-distended, Normal Reactive Bowel Sounds Neuro: YesAlert,Yes cooperative, Yes oriented to person, Yes place, and No time. Speech clear. CN grossly intact. Upper motor strength 5/5 and Lower motor strength 5/5. Sensation intact. Objective Labs 03/08/25 06:10 03/08/25 06:10 Labs: Laboratory Results - last 24 hr 03/08/25 06:10 WBC 10.2 D RBC 4.33 Hgb 13.2 Hct 39.2 MCV 91 MCH 30.5 MCHC 33.7 RDW Std Deviation 42.6 Plt Count 293 Neut % (Auto) 56 Lymph % (Auto) 19 [place] % (Auto) 11 Eos % (Auto) 14 H Baso % (Auto) 1 Neut # (Auto) 5.7 Lymph # (Auto) 1.9 [place] # (Auto) 1.1 H Eos # (Auto) 1.4 H Baso # (Auto) 0.1 Immature Gran # (Auto) 0.05 H Absolute Nucleated RBC 0.00 Immature Gran % 1 H Nucleated RBC % 0 Sodium 143 Potassium 3.6 Chloride 108 H Carbon Dioxide 25.5 Anion Gap 10 BUN 10 Creatinine 0.8 Estim Creat Clear Calc 58.3 L eGFR > 60 BUN/Creatinine Ratio 13 Glucose 114 H Calculated Osmolality 284 Calcium 9.6 Corrected Calcium 9.6 Phosphorus 2.8 Magnesium 2.3 Total Bilirubin 0.4 AST 20 ALT 34 Alkaline Phosphatase 118 H D Total Protein 7.0 Albumin 4.1 Globulin 2.9 Albumin/Globulin Ratio 1.4 ABG Interpretation ABG results: 03/05/25 03/06/25 03/07/25 15:00 03:09 04:33 ABG pH 7.42 7.41 ABG pCO2 38 35 ABG pO2 165 H 124 H D ABG HCO3 24 22 ABG O2 Saturation 98 98 ABG Base Excess 0 -2 VBG pH 7.41 VBG pCO2 39 VBG pO2 65 H VBG Base Excess 0 Quality Measures Quality Measures VTE prophylaxis and none Assessment & Plan Assessment Current Active Medications: Generic Name Dose Route Start Last Admin Trade Name Freq PRN Reason Stop Dose Admin Acetaminophen 650 mg 03/07/25 15:52 Acetaminophen 325 Mg Tablet PO 04/06/25 15:51 Q6HR PRN FEVER >101 Xcopri 100 Mg Tablet 0 ea 03/07/25 08:00 03/08/25 09:02 NG 04/05/25 14:59 1 tablet QDAY@0800 [facility] Administration Ingrezza 80 Mg 0 ea 03/07/25 08:00 03/08/25 09:03 Capsule NG 04/05/25 15:14 1 capsule QDAY@0800 [facility] Administration Enoxaparin Sodium 40 mg 03/06/25 09:00 03/08/25 09:03 Enoxaparin Sod Inj 40 Mg/0.4 Ml Syringe SC 03/20/25 08:59 40 mg QDAY ALBERTO Administration Ceftriaxone Sodium/Dextrose 1 gm in 50 mls @ 100 mls/hr 03/06/25 21:00 03/07/25 21:51 Rocephin/D5w 1gm Iv Premix IV 03/13/25 20:59 100 mls/hr DAILY@2100 ALBERTO Administration Lamotrigine 100 mg 03/06/25 09:00 03/08/25 10:32 Lamotrigine 100 Mg Tablet PO 04/05/25 08:59 100 mg BID ALBERTO Administration Levetiracetam 1,000 mg 03/06/25 09:00 03/08/25 09:03 Levetiracetam Inj 100 Mg/Ml Vial 5ml IVP 04/05/25 08:59 1,000 mg Q12HR ALBERTO Administration Ondansetron HCl 4 mg 03/05/25 23:34 Ondansetron Inj 2 Mg/Ml Inj 2 Ml IVP 04/04/25 23:33 Q6H PRN NAUSEA OR VOMITING Protocol Pantoprazole Sodium 40 mg 03/09/25 09:00 Pantoprazole 40 Mg Tablet PO 04/08/25 08:59 QDAY ALBERTO Protocol Zonisamide 400 mg 03/06/25 21:00 03/07/25 21:51 Zonisamide 100 Mg Capsule PO 04/05/25 20:59 400 mg HS ALBERTO Administration Plan Patient is a 54 year old female with a past medical history of seizures, hypertension, and developmental delay who was admitted directly to ICU on 03/06/2025 secondary to status epileticus and downgraded on 03/07/2025. #Seizure #Refractory status epilepticus, resolved. #Acute postical encephalopathy, resolved. Patient presented to the emergency room overnight on 03/05/2025 with chief complain of muliptle seizures likely triggered secondary to urinary tract infection (day 2 of Ceftriaxone 03/06/2025) as head CT negative for acute hemorrhage or mass effect. Chest x ray negative for pneumonia. EKG noted for sinus tachycardia no ST elevation noted. Home medication of Keppra 500 mg PO BID-->increased by tele neuro, Lamotrigine, and Zonisamide. Plan: -Resum Xcopri (home medication) -New dose, Keppra 1000 mg IV BID, consider transitioning to oral, please discharge with new dose. -Lamotrigine 100 mg PO BID -Zonisamide 400 mg PO HS -Valbenazine 80 mg PO Qay #UTI, Proteus Mirabilis #Hypertension #S/p intubation now exutbated on 03/07/2025 #Developmental Delays #Hypokelemia, reoslved. - The patient's plan was discussed with attending Dr. Sukhi Doshi MD PGY2 Internal Medicine Attending Provider Attestation/Addendum I personally have seen and reviewed patient's chart and I agreed with resident's findings, assessment and plan of care. IMP: SZ Disorder, admitted with status Transferred from ICU yesterday, mental status: back to baseline. Follows commands No sz so far. Continue Keppra 1000 mg bid, zonisamide 400 mg qhs, xcopri 100 mg qd and LTG 100 mg bid. EEG showed multifocal paroxysmal epileptiform discharges consistent with sz disorder. As she remains sz free for more than 24 hours, ok to be discharged home and FU with me in the clinic in 2 weeks.
[2025-03-08 16:00] VITALS: BP 99/77; PULSE 102; PULSE 91; RESP 20; TEMP 36.2; O2SAT 98
[2025-03-08 18:05] VITALS: BP 117/67; PULSE 90; RESP 20; TEMP 36.2; O2SAT 98
--- NOTE | 2025-03-08 20:51 | ESDS_ITS ---
<Statement entered by Richard Gibson MD - 03/09/25 11:45> Patient was seen and examined at bedside. Agree on the discharge plan on this note. - Patient's plan and care discussed with my attending, Dr. Fercho Gibson MD Internal Medicine PGY-3 Planned Discharge Date 03/08/25 DS: Providers Provider Date of admission: 03/05/25 23:48 Primary care physician: Cherelle Butts NP Admitting Provider: Malick Coronado MD Attending Provider on Admission: Alvina Bro MD Consults: 03/07/25 15:48 Consult to Neurology / Tele-Neurology Stat Comment: s/p status epilepticus, pt of Dr. Isbell Consulting Provider: Zohaib Isbell 03/07/25 15:49 Referral Speech Therapy Stat Comment: s/p extubation 03/07/2025 around 10:00 am Attending Provider on DC: RESIDENT Viktor Discharging Provider: RESIDENT Viktor DS: Diagnosis Problem List Completed Was Problem List Reviewed/Reconciled?: Yes Hospital Course Hospital Course Hospital course: 49-year-old female with significant past medical history of seizure disorder, developmental delay, hypertension who presented with chief complaint of increased seizure activity for about 1 week. In the ED patient was f/t/h elevated WBCs and lactic acid: 1.9 with a positive UA for nitrates , RBCs, and WBCs. Head CT was unremarkable. In the ED had about 15 episodes of seizure, resistant to multiple doses of midazolam, diazepam and loading dose of Keppra, and never regained her baseline consciousness in between seizures She was admitted to the ICU and intubated, restarted her home meds and increased the Keppra to 1000mg BID. Teleneurologist consulted, recommend monitoring with continuous EEG following weight-based Keppra dosage. She was f/t/h proteus mirabilis that was treated IV cef,. Once stable she was downgraded to tele where she displayed her baseline mentation. EEG was done per neuro: abnormal with multifocal paroxysmal epileptiform discharges consistent with seizures. Patient stayed for 48 hours without any seizure activity was cleared for discharge by neurology, detention was updated Discharge Instructions: ? Follow-up with your primary care physician within 1 week from discharge. ? Follow-up with a neurologist within 1 to 2 weeks of discharge ? We increased your Keppra to 1000 mg tablets orally twice a day ?You were noticed to have UTI during your admission, we prescribed you cephalexin 500 mg orally 3 times a day for 3 days ? In case of worsening of your symptoms please return to the ED as soon as possible #Acute postictal encephalopathy, resolved #Refractory status epilepticus, resolved #Hx of seizure disorder #History of hypertension #S/p intubation for airway protection #Hypokalemia #Proteus mirabilis UTI Patient's plan and care discussed with my attending, Dr. Brantley, and supervising residents Richard Gibson MD, Merrill Moore MD Internal Medicine PGY-1 Time Spent with Patient Time attestation: Total time spent providing and/or coordinating discharge services: Time spent: Greater than 30 minutes Exam Vital Signs Temp Pulse Resp BP Pulse Ox O2 Del Method O2 Flow Rate 97.1 F 90 20 117/67 98 Room Air 6 03/08/25 18:05 03/08/25 18:05 03/08/25 18:05 03/08/25 18:05 03/08/25 18:05 03/08/25 18:05 03/07/25 10:08 FiO2 30 03/07/25 06:00 Narrative Exam Physical Exam General: Awake and in no acute distress. Verbal, non-toxic appearing. HEENT: Normocephalic, atraumatic, mucous membranes moist. Heart: Regular rate and rhythm, normal S1 and S2, no murmurs. Lungs: Clear to auscultation with no wheezing or crackles. Abdomen: Soft, nondistended, nontender, positive bowel sounds. ?No guarding or rebound tenderness. Neurologic: Alert and oriented x3, no gross neurological deficit, and patient able to move all 4 extremities. Extremities: No edema. Mild left knee abrasion healing. Skin: No rash or ecchymoses. Discharge Plan Plan Patient Disposition: HOME (Self Care) Patient condition on transfer: Stable and Benefits outweigh risks Care Plan Goals: Discharge instructions ? Follow-up with your primary care physician within 1 week from discharge. ? Follow-up with a neurologist within 1 to 2 weeks of discharge ? We increased your Keppra to 1000 mg tablets orally twice a day ?You were noticed to have UTI during your admission, we prescribed you cephalexin 500 mg orally 3 times a day for 3 days ? In case of worsening of your symptoms please return to the ED as soon as possible Prescriptions/Referrals Prescriptions/Med Rec: New levetiracetam [Keppra] 1,000 mg tablet 1,000 mg PO BID 30 Days Qty: 60 0RF cephalexin 500 mg capsule 500 mg PO TID 3 Days Qty: 9 0RF Continued sertraline 100 mg tablet 150 mg PO QDAY docusate sodium 250 mg Capsule 250 mg PO BID loratadine 10 mg tablet 10 mg PO QDAY lamotrigine 100 mg tablet 100 mg PO BID zonisamide 100 mg capsule 400 mg PO .qhs quetiapine 400 mg tablet extended release 24 hr 800 mg PO .qhs Patient Comments: give 2 tablets Xcopri 100 mg tablet 100 mg PO QDAY Rx Instructions: administer weeks 7 and 8 of therapy Ingrezza 80 mg capsule 80 mg PO QDAY medroxyprogesterone [Provera] 10 mg tablet 10 mg PO QDAY Patient Comments: Give one tablet by mouth everyday for the first 10 days of the month Discontinued levetiracetam 500 mg tablet extended release 24 hr 500 mg PO BID Referrals: Cherelle Butts NP [Primary Care Provider] - Zohaib Isbell MD [Physician] - Patient/Caregiver Discharge Instructions Discharge Activity: activity as tolerated Education Materials: Epilepsy How Seizures Affect Body, Urinary Tract Infections in Women, When to Use Antibiotics Print Language: Lebanese Stand Alone Forms: Nena Award Info., Patient Portal Info Letter Discharge Order Discharge Orders: Discharge (Routine); Ordered 03/08/25 Ordered By: Richard Gibson Quality Discharge Quality Measures VTE prophylaxis Attestestation MD Attestation I have discussed and was present for the essential components of the discharge history, physical examination, diagnosis, and discharge treatment plan with the resident. I agree with the patient's discharge care as documented by the resident and amended herein by me. Franklin Brantley DO. The patient understood all discharge instructions, all questions were answered satisfactorily. The patient was instructed to return to the Emergency Department is symptoms worsened or persisted. Although this document has been carefully reviewed, there may still be some phonetic and other typographical errors. These errors are purely grammatical due to imperfections in the software program and should not be construed in any way to compromise the substance of the patient's medical care during this visit.
== END 2025-03-08 18:05 | disposition home or self-care (01) | DRG 53 ==
LOC: SERX 20:34 → SERHOLD 23:49 → S2SX 03-06 09:56 → SERHOLD 03-07 06:51 → S2SX 03-07 10:59 → S2NX 03-07 19:14
PROVIDERS: Emergency Medicine; Student in an Organized Health Care Education/Training Program; Admitting Provider Student in an Organized Health Care Education/Training Program; Emergency Provider Emergency Medicine; PCP Registered Nurse; Visit Provider Internal Medicine
DX: G40.911 Epilepsy, unspecified, intractable, with status epilepticus (principal); I10 Essential (primary) hypertension; N39.0 Urinary tract infection, site not specified; G24.01 Drug induced subacute dyskinesia; E87.6 Hypokalemia; B96.4 Proteus (mirabilis) (morganii) as the cause of diseases classified elsewhere; G93.40 Encephalopathy, unspecified; Z79.899 Other long term (current) drug therapy
CPT/HCPCS: 36415; 36600; 70450; 80053; 80061; 80307; 81001; 82803; 83605; 83735; 84100; 84443; 85025; 85610; 85730; 87077; 87081; 87086; 87186; 92610; 94002; 94003; 95813; 96365; 96374; 96375; 96376; 99284; A4314; J0696; J1650; J1953; J2250; J2251; J2470; J2704; J3010; J3360; J3480; J3490; A9270

== ENCOUNTER 2025-07-05 08:04 | Emergency (ER) | payer MEDICAID, SELFPAY ==
[2025-07-05 08:15] VITALS: BP 135/80; PULSE 100; RESP 18; TEMP 36.9; O2SAT 96
[2025-07-05 08:17] VITALS: BMI 32.0
--- NOTE | 2025-07-05 08:32 | PD.EDRME ---
Rapid Medical Screening Exam RME Arrival date/time: 07/05/25 08:04 Chief Complaint: Wound/Laceration Vital signs: Vital Signs Temperature 98.4 F 07/05/25 08:15 Pulse Rate 100 07/05/25 08:15 Respiratory Rate 18 07/05/25 08:15 Blood Pressure 135/80 H 07/05/25 08:15 Pulse Oximetry (%) 96 07/05/25 08:15 Oxygen Delivery Method Room Air 07/05/25 08:15 RME Narrative: 54-year-old female with a past medical history of seizures on Keppra who was admitted to the hospital about 2 months ago for status epilepticus who is complaining of recurrent breakthrough seizures in the past 2 weeks. 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 I briefly performed a screening evaluation to initiate work-up and expedite care. Complete history, physical exam, and plan of care is deferred to the provider in the main ED. Exam: Head: Normocephalic, atraumatic. Respiratory: Normal effort. No respiratory distress or accessory muscle use. Neuro: Speech normal. Skin: Warm, dry, normal color. Psych: Pleasant. Normal affect. Cooperative. Clinical Impression: Breakthrough seizures
--- NOTE | 2025-07-05 08:37 | EKG_ITS ---
[facility] Test Date: 2025-07-05 Pat Name: JOY LOPEZ Department: Room: - Gender: Female Trashman: : 1970 Requested By: Tramaine An Order Number: [id number] Reading MD: Tramaine An Measurements Intervals Reading Rate: 95 P: 46 HI: 144 QRS: 81 QRSD: 82 T: 39 QT: 354 QTc: 445 Interpretive Statements SINUS RHYTHM Compared to ECG 03/02/2025 11:09:08 Sinus tachycardia no longer present T-wave abnormality no longer present /store/S0/[id number]
--- NOTE | 2025-07-05 08:37 | XR_ITS ---
Examination: CT brain head without contrast. 2-D sagittal coronal reconstructions Date and time of exam: July 05, 2025, 0900 hours, seizures today, patient fell, injury to the head, head pain CTDI: vol (mGy): 46.3 DLP: (mGycm): 880 Technique: Multiple CT axial sections of the brain have been obtained, 5 mm slice thickness. Contrast has not been administered. 2-D sagittal, coronal reconstructions have been obtained Low dose protocols were performed. One or more of the following dose reduction techniques were used; automated exposure control, adjustment of the mA and/or KV according to patient size, use of iterative reconstruction technique. Findings: No significant ventricular enlargement. Intra-axial or extra-axial hemorrhage density is not seen. No mass effect or midline shift Basal cisterns are not remarkable. Fourth ventricle is midline. Cranial vault intact. Impression: Negative for acute hemorrhage, mass effect or midline shift Consider elective brain MRI follow-up pre and post contrast, seizure protocol
[2025-07-05 09:02] LABS: Basophils # (Auto) 0.1 Thou/mm3 (0.0-0.2); Basophils % (Auto) 1 % (0-2.5); Eosinophils # (Auto) 0.6 Thou/mm3 (0.0-0.5); Eosinophils % (Auto) 6 % (0-10); Hematocrit 40.6 % (36.0-46.0); Hemoglobin 13.3 g/dL (12.0-16.0); Immature Granulocytes Auto 0.04 Thou/mm3 (0.00-0.00); Lymphocytes # (Auto) 0.8 Thou/mm3 (1.0-4.8); Lymphocytes % (Auto) 8 % (10-50); Mean Corpuscular HGB Conc 32.8 g/dl (31.0-37.0); Mean Corpuscular Hemoglobin 30.1 pg (25.0-35.0); Mean Corpuscular Volume 92 fL (80-100); Monocytes # (Auto) 0.5 Thou/mm3 (0.0-0.8); Monocytes % (Auto) 5 % (0-12); Neutrophils # (Auto) 8.1 Thou/mm3 (1.8-7.7); Neutrophils % (Auto) 80 % (37-80); Nucleated Red Blood Cell # 0.00 Thou/mm3 (0.00-0.00); Nucleated Red Blood Cell % 0 /100 WBC (0); Platelet Count 309 Thou/mm3 (140-440); RDW Standard Deviation 46.9 fL (36.4-46.3); Red Blood Count 4.42 Miln/mm3 (4.00-5.20); White Blood Count 10.1 Thou/mm3 (3.6-11.0)
[2025-07-05 09:27] LABS: INR 1.0 (0.9-1.3); Prothrombin Time 10.8 Seconds (9.0-12.2)
[2025-07-05 09:45] LABS: Alanine Aminotransferase 14 U/L (10-49); Albumin, Serum 5.1 gm/dL (3.5-5.0); Albumin/Globulin Ratio 1.4 (1.2-2.2); Alcohol, Blood Medical < 3.0 mg/dL (0-10.0); Alkaline Phosphatase 183 U/L (46-116); Anion Gap 13 (7-16); Aspartate Amino Transferase 19 U/L (0-34); BUN/Creatinine Ratio 23 Ratio (12-20); Bilirubin,Total 0.3 mg/dL (0.3-1.2); Blood Urea Nitrogen 18 mg/dL (9-23); Calcium 9.5 mg/dL (8.3-10.6); Calcium (Corrected) 9.5 mg/dL (8.5-10.1); Carbon Dioxide 23.1 mMol/L (20.0-31.0); Chloride 107 mMol/L (98-107); Creatinine (Component) 0.8 mg/dL (0.6-1.3); Estimated Creatinine Clearance 62.7 mL/min (>60); Globulin 3.7 gm/dL (2.3-3.5); Glucose 117 mg/dL (74-106); Magnesium 2.1 mg/dL (1.6-2.6); Osmolality,Calculated 287 (275-295); Potassium 3.7 mMol/L (3.4-5.1); Sodium 143 mMol/L (136-145); Thyroid Stimulating Hormone 3.31 uIU/mL (0.55-4.78); Total Protein 8.8 gm/dL (5.7-8.2); Troponin I < 0.002 ng/mL (0.0-0.045); eGFR > 60 See Note
--- NOTE | 2025-07-05 10:11 | PD.EDHEAD ---
ED Head Injury RME/HPI General Chief complaint: Wound/Laceration Stated complaint: L) HEAD LAC, HIT HEAD ON TABLE DURING SEIZURE Arrival date/time: 07/05/25 08:04 RME / HPI RME / HPI Narrative: 54-year-old female with a past medical history of seizures on Keppra who was admitted to the hospital about 2 months ago for status epilepticus who is complaining of recurrent breakthrough seizures in the past 2 weeks. Patient manager therapy her last seizure was this morning and she hit her head. I briefly performed a screening evaluation to initiate work-up and expedite care. Complete history, physical exam, and plan of care is deferred to the provider in the main ED. DR. DOMIGNUEZ MAIN ED EVALUATION: 54 year old female with history of Autism, seizures on Keppra and Lamictal presents to the ED brought in by caregiver for evaluation of head injury following a seizure today. Caregiver reports in the last 2 weeks patient has had increased seizure activity which she believes are attributed to patients emotions. States patient had a seizure today and during the seizure hit her head. Caregiver reports compliance with medications. Exam: Head: Normocephalic, atraumatic. Respiratory: Normal effort. No respiratory distress or accessory muscle use. Neuro: Speech normal. Skin: Warm, dry, normal color. Psych: Pleasant. Normal affect. Cooperative. Impression: Breakthrough seizures Related Data Home Medications ?Medication ?Instructions ?Recorded ?Confirmed docusate sodium 250 mg capsule 250 mg PO BID 08/09/19 03/06/25 sertraline 100 mg tablet 150 mg PO QDAY 08/09/19 03/06/25 loratadine 10 mg tablet 10 mg PO QDAY 05/10/22 03/06/25 cenobamate 100 mg tablet (Xcopri) 100 mg PO QDAY 03/06/25 03/06/25 lamotrigine 100 mg tablet 100 mg PO BID 03/06/25 03/06/25 medroxyprogesterone 10 mg tablet 10 mg PO QDAY 03/06/25 03/06/25 (Provera) quetiapine 400 mg tablet,extended 800 mg PO .qhs 03/06/25 03/06/25 release 24 hr valbenazine 80 mg capsule 80 mg PO QDAY 03/06/25 03/06/25 (Ingrezza) zonisamide 100 mg capsule 400 mg PO .qhs 03/06/25 03/06/25 Allergies Allergy/AdvReac Type Severity Reaction Status Date / Time lithium Allergy Severe Hallucinati Verified 07/05/25 08:08 ng ED Exam Narrative Physical exam: Generally patient is alert but mentally delayed in no obvious distress, head shows a 3 cm vertical scalp laceration just behind the hairline to the central portion of the anterior head. No cephalhematoma. Eyes pupils equal round reactive to light, neck shows no midline tenderness and nontender to head compression, heart mildly tachycardic rate with regular rhythm, lungs clear to auscultation equal bilaterally, abdomen is soft and nontender, neurologic exam patient is baseline per caregiver at this time. Course Quality Measures none Orders Category Date Time Status EKG (ED ONLY) *Do not use* NOW Care 07/05/25 08:[address] head/brain wo con Stat Exams 07/05/25 08:37 Completed EKG (ED Only) Stat Exams 07/05/25 08:37 Draft Alcohol, Blood Medical Stat Lab 07/05/25 08:50 Completed CBC Stat Lab 07/05/25 08:50 Completed CMP [Comprehensive Metabolic Panel] Stat Lab 07/05/25 08:50 Completed Drug Screen,Urine Stat Lab 07/05/25 08:37 Ordered INR [Prothrombin Time with INR] Stat Lab 07/05/25 08:50 Completed Lamotrigine* Stat Lab 07/05/25 08:50 Received Magnesium Stat Lab 07/05/25 08:50 Completed TSH [Thyroid Stimulating Hormone] Stat Lab 07/05/25 08:50 Completed Troponin I Stat Lab 07/05/25 08:50 Completed UA, C/S IF [Urinalysis, C/S if Indicated] Stat Lab 07/05/25 08:37 Ordered levETIRAcetam INJ [Keppra Inj] Med 07/05/25 10:03 Discontinued 1,000 mg IVP X1 ONE Vital Signs Vital signs: Vital Signs Temperature 98.4 F 07/05/25 08:15 Pulse Rate 100 07/05/25 08:15 Respiratory Rate 18 07/05/25 08:15 Blood Pressure 135/80 H 07/05/25 08:15 Pulse Oximetry (%) 96 07/05/25 08:15 Oxygen Delivery Method Room Air 07/05/25 08:15 Head Injury MDM Narrative MDM Narrative:: Patient is on Lamictal as well as Keppra for her seizures. She had a brief 1 minute seizure in the emergency room. Patient did receive Keppra 1000 mg IV. Prior to my evaluation blood work was ordered and head CT was obtained all of which showed no acute abnormality. Patient had no further seizures here in the emergency room. I interpreted all labs. Patient is to continue all current medications and the patient's caregivers to follow-up with the patient's neurologist on the need for medication adjustment. Patient data External records reviewed:: Other (specify) Clinical information provided by:: none Social determinants that could affect healthcare access:: none Patient has the following chronic illnesses:: none How is presenting disease/condition affected by chronic disease/condition?: no chronic disease Evaluation data The following diagnostics were reviewed and interpreted by me:: other (specify) Lab and/or radiology exams considered but not ordered:: none Interpretation Summary: none Medications / Prescriptions Medications or Prescriptions considered but not ordered:: none Medication administrations:: Medication Administration History Discontinued Medications Levetiracetam (Levetiracetam Inj 100 Mg/Ml Vial 5ml) 1,000 mg IVP X1 ONE Stop: 07/05/25 10:04 Last Admin: 07/05/25 10:29 Dose: 1,000 mg Documented By: GAGE none Consultations Consultation(s) initiated? (list below): No Diagnosis Differential diagnosis head injury: other Most likely diagnosis given after review of the tests above:: none Admission Indicated Admission indicated?: not indicated Admission Request Was there a request for admission?: No Disposition Plan Disposition Plan: Discharge Discharge Attestation Discharge Attestation: The patient and all family members were given an opportunity to ask questions and understood the discharge instructions. Discharge instructions specifically effects, indications for sooner follow up or return to the emergency department, and the expected course of current diagnosis. Patient condition: Stable Discharge Plan Plan Patient Disposition: HOME (Self Care) Prescriptions/Referrals Prescriptions/Med Rec: No Action sertraline 100 mg tablet 150 mg PO QDAY docusate sodium 250 mg Capsule 250 mg PO BID loratadine 10 mg tablet 10 mg PO QDAY lamotrigine 100 mg tablet 100 mg PO BID zonisamide 100 mg capsule 400 mg PO .qhs quetiapine 400 mg tablet extended release 24 hr 800 mg PO .qhs Patient Comments: give 2 tablets Xcopri 100 mg tablet 100 mg PO QDAY Rx Instructions: administer weeks 7 and 8 of therapy Ingrezza 80 mg capsule 80 mg PO QDAY medroxyprogesterone [Provera] 10 mg tablet 10 mg PO QDAY Patient Comments: Give one tablet by mouth everyday for the first 10 days of the month Referrals: Cherelle Butts [employer] [Primary Care Provider] - In 1 week Problem List Clinical Impression: Recurrent seizures, Laceration Patient/Caregiver Discharge Instructions Additional Instructions: Continue current medications. Obtain advice from the neurologist for medication adjustment. Staple removal in 7 days. Keep wound as dry as possible. Print Language: Bengali Stand Alone Forms: Nena Award Info., Patient Portal Info Letter
[2025-07-05 10:16] VITALS: BP 133/85; PULSE 91; RESP 14; TEMP 37.1; O2SAT 96
[2025-07-05] MEDS: levETIRAcetam INJ 100 MG/ML VIAL 5ML 1000 MG IVP (10:29)
[2025-07-05 12:01] VITALS: BP 134/78; PULSE 99; RESP 12; TEMP 36.9; O2SAT 99
[2025-07-11 06:50] LABS: Lamotrigine* 3.0 mcg/mL (2.5-15.0)
== END 2025-07-05 12:05 | disposition home or self-care (01) ==
PROVIDERS: Physician Assistant; Emergency Provider Emergency Medicine; PCP Registered Nurse
DX: S01.01XA Laceration without foreign body of scalp, initial encounter (principal); G40.909 Epilepsy, unspecified, not intractable, without status epilepticus; X58.XXXA Exposure to other specified factors, initial encounter
CPT/HCPCS: 36415; 70450; 80053; 80175; 80307; 80320; 81001; 83735; 84443; 84484; 85025; 85610; 85652; 86140; 93005; 96374; 99283; J1953; G0480